=== PATIENT | female | born 1950 | race Caucasian/White ===

== ENCOUNTER 2016-08-10 18:25 | Emergency (ER) | payer MEDICARE, MEDICAID ==
[2016-08-10] MEDS ORDERED: Sodium Chloride 0.9% 1,000 ML IV ONE (19:14)
[2016-08-10 19:20] LABS: BASO % 0.2 % (0.0-2.0); EOS # 0.2 K/uL (0.0-0.7); EOS % 2.5 % (0.0-4.0); HEMATOCRIT 39.5 % (34.0-47.0); LYMPH # 2.2 K/uL (1.0-4.3); LYMPH % 32.3 % (20.0-40.0); MEAN CELL VOLUME 95.5 fL (81.0-99.0); MEAN CORPUSCULAR HEMOGLOBIN 30.2 pg (27.0-31.0); MEAN CORPUSCULAR HGB CONC 31.6 g/dL (33.0-37.0); MEAN PLATELET VOLUME 10.7 fL (7.2-11.7); MONO % 14.3 % (0.0-10.0); RED CELL DISTRIBUTION WIDTH 13.4 % (11.5-14.5)
[2016-08-10 19:29] LABS: CHLORIDE 103 mmol/L (98-107); POTASSIUM 4.7 mmol/L (3.6-5.2); SODIUM 142 mmol/L (132-148)
[2016-08-10 19:31] LABS: ALKALINE PHOSPHATASE 44 U/L (38-126); AST/SGOT 40 U/L (14-36); BILIRUBIN,TOTAL 0.7 mg/dL (0.2-1.3); CARBON DIOXIDE 26 mmol/L (22-30); GFR AFRICAN-AMERICAN > 60; TOTAL PROTEIN 7.9 g/dL (6.3-8.3)
[2016-08-10 19:32] LABS: ALT/SGPT 13 U/L (9-52); BLOOD UREA NITROGEN 18 mg/dL (7-17); CALCIUM 8.9 mg/dl (8.6-10.4); GLUCOSE,RANDOM 90 mg/dL (65-105)
--- NOTE | 2016-08-10 19:59 | C.PDOC ---
History Of Present Illness 65 y/o female, past medical history of advanced dementia, BIBA with son, c/o nasal congestion for 2 days. Denies history of seasonal allergies, no medications taken. Otherwise, denies fever, chills, nausea, vomiting, or other associated symptoms. Time Seen by Provider: 08/10/16 19:09 Chief Complaint (Nursing): Flu-like Symptoms History Per: Patient History/Exam Limitations: no limitations Onset/Duration Of Symptoms: Days Current Symptoms Are (Timing): Still Present Associated Symptoms: Nasal Congestion. denies: Fever, Chills, Cough, Vomiting, Diarrhea Ear Symptoms: Bilateral: None Recent travel outside of the [place]: No Past Medical History Reviewed: Historical Data, Nursing Documentation, Vital Signs Vital Signs: Last Vital Signs Temp 98.3 F 08/10/16 18:31 Pulse 70 08/10/16 18:31 Resp 18 08/10/16 18:31 BP 158/59 H 08/10/16 18:31 Pulse Ox 100 08/10/16 19:58 - Medical History PMH: HTN ( PER SON), Seizures ( PER SON) Family History: States: Unknown Family Hx - Social History Hx Alcohol Use: No Hx Substance Use: No - Immunization History Hx Tetanus Toxoid Vaccination: No Hx Influenza Vaccination: No Hx Pneumococcal Vaccination: No Review Of Systems Except As Marked, All Systems Reviewed And Found Negative. Constitutional: Negative for: Fever, Chills ENT: Positive for: Nose Congestion. Negative for: Ear Pain Respiratory: Negative for: Cough, Shortness of Breath, Wheezing Gastrointestinal: Negative for: Nausea, Vomiting, Abdominal Pain, Diarrhea Skin: Negative for: Rash Neurological: Negative for: Headache, Dizziness Physical Exam - Physical Exam Appears: Non-toxic, No Acute Distress Skin: Normal Color, Warm, Dry Head: Atraumatic, Normacephalic Eye(s): bilateral: Normal Inspection, PERRL, EOMI Ear(s): Bilateral: Normal Nose: Normal Oral Mucosa: Moist Throat: Normal, No Erythema, No Exudate Neck: Supple Chest: Symmetrical Cardiovascular: Rhythm Regular Respiratory: Normal Breath Sounds, No Rales, No Rhonchi, No Wheezing Gastrointestinal/Abdominal: Soft, No Tenderness, No Guarding, No Rebound Back: Normal Inspection Extremity: Normal ROM, Capillary Refill (< 2 sec. ) Neurological/Psych: Oriented x3, Normal Speech, Normal Cognition ED Course And Treatment - Laboratory Results Result Diagrams: 08/10/16 19:18 08/10/16 19:18 Lab Interpretation: Normal (trop neg) ECG: Interpreted By Me ECG Rhythm: Sinus Rhythm ECG Interpretation: Normal O2 Sat by Pulse Oximetry: 100 (RA) Pulse Ox Interpretation: Normal - Radiology CXR: Interpreted by Me CXR Interpretation: Yes: No Acute Disease Progress Note: EKG, CxR, labs, IVFs. Medical Decision Making Medical Decision Making: advanced dementia, normal w/u and exam, ? seasonal allergies x 2 days- OTC allergy meds. Disposition Doctor Will See Patient In The: Office Counseled Patient/Family Regarding: Studies Performed, Diagnosis - Disposition Disposition: HOME/ ROUTINE Disposition Time: 20:10 Condition: GOOD - Clinical Impression Clinical Impression: Allergic rhinitis - Scribe Statement The provider has reviewed the documentation as recorded by the Scribmunira Whyte All medical record entries made by the Shanaibmunira were at my direction and personally dictated by me. I have reviewed the chart and agree that the record accurately reflects my personal performance of the history, physical exam, medical decision making, and the department course for this patient. I have also personally directed, reviewed, and agree with the discharge instructions and disposition.
--- NOTE | 2016-08-10 20:08 | C.PDOC ---
Time Seen by Provider: 08/10/16 19:09 Chief Complaint (Nursing): Flu-like Symptoms Past Medical History Vital Signs: Last Vital Signs Temp 98.3 F 08/10/16 18:31 Pulse 70 08/10/16 18:31 Resp 18 08/10/16 18:31 BP 158/59 H 08/10/16 18:31 Pulse Ox 100 08/10/16 18:31 - Medical History PMH: HTN ( PER SON), Seizures ( PER SON) - Social History Hx Alcohol Use: No Hx Substance Use: No - Immunization History Hx Tetanus Toxoid Vaccination: No Hx Influenza Vaccination: No Hx Pneumococcal Vaccination: No ED Course And Treatment O2 Sat by Pulse Oximetry: 100
[2016-08-10 20:43] VITALS: O2SAT 98
[2016-08-10 21:35] VITALS: BP 160/73; PULSE 70; RESP 16; TEMP 97.6
--- NOTE | 2016-08-11 08:15 | RAD ---
PROCEDURE: CHEST RADIOGRAPH, 1 VIEW HISTORY: Shortness of breath COMPARISON: None available. FINDINGS: LUNGS: Mild diffuse increased interstitial lung markings which may represent a mild venous congestion. Trace left pleural effusion with left basilar atelectasis. Right hilar prominence. Upper lobe granulomatous changes. PLEURA: As above. CARDIOVASCULAR: Mild cardiomegaly. Tortuous aorta. OSSEOUS STRUCTURES: No significant abnormalities. VISUALIZED UPPER ABDOMEN: Normal. OTHER FINDINGS: None. IMPRESSION: Mild diffuse increased interstitial lung markings which may represent a mild venous congestion. Trace left pleural effusion with left basilar atelectasis. Right hilar prominence. Upper lobe granulomatous changes.
--- NOTE | 2016-08-11 18:11 | CARD ---
APPROVED REPORT EKG Measurement Heart [id number] <Conclusion> Normal sinus rhythm Normal ECG
== END 2016-08-10 21:35 | disposition home or self-care (01) ==
LOC: C.ER 18:25
DX: J30.9 Allergic rhinitis, unspecified (principal)
CPT/HCPCS: 71010; 80053; 83880; 84484; 85025; 93005; 96360; 99285; J7040

== ENCOUNTER 2016-12-07 19:21 | Inpatient (IN) | payer MEDICARE, OTHER ==
--- NOTE | 2016-12-07 19:51 | C.PDOC ---
History Of Present Illness 66 year old female with history of DM II and Alzheimer's disease brought to the ED by EMS for evaluation of left lower back pain and hip pain. Patient is s/p fall yesterday while at home, states she is unsure of why she fell or how long she was on the floor. She denies current chest pain, SOB, palpitations, abdominal pain, dizziness, headache, visual changes, facial droop, slurred speech. Time Seen by Provider: 12/07/16 19:23 Chief Complaint (Nursing): Back Pain History Per: Patient (alzheimer's dementia ), EMS, Family (Patient's son ) Onset/Duration Of Symptoms: Days (patient fell yesterday ) Current Symptoms Are (Timing): Still Present Quality Of Discomfort: "Pain" Severity: Mild Associated Symptoms: None Recent travel outside of the [place]: No Past Medical History Reviewed: Historical Data, Nursing Documentation, Vital Signs Vital Signs: Last Vital Signs Temp 99.3 F 12/12/16 15:00 Pulse 85 12/12/16 15:26 Resp 20 12/12/16 15:00 BP 156/60 H 12/12/16 15:26 Pulse Ox 98 12/12/16 15:26 - Medical History PMH: HTN ( PER SON), Seizures ( PER SON) Family History: States: No Known Family Hx - Social History Hx Alcohol Use: No Hx Substance Use: No - Immunization History Hx Tetanus Toxoid Vaccination: No Hx Influenza Vaccination: No Hx Pneumococcal Vaccination: No Review Of Systems Except As Marked, All Systems Reviewed And Found Negative. Constitutional: Negative for: Fever, Chills Cardiovascular: Negative for: Chest Pain, Palpitations Respiratory: Negative for: Cough, Shortness of Breath Gastrointestinal: Negative for: Nausea, Vomiting, Abdominal Pain, Diarrhea Musculoskeletal: Positive for: Leg Pain (left leg pain ), Other (left hip pain ) Neurological: Negative for: Weakness, Numbness, Change in Speech, Headache, Dizziness Physical Exam - Physical Exam Appears: Well, Non-toxic, No Acute Distress Skin: Normal Color, Warm, Dry, No Ecchymosis, Other (No abrasions ) Head: Atraumatic, Normacephalic, No Swelling, No Abrasion, No Laceration Eye(s): bilateral: Normal Inspection, PERRL, EOMI Oral Mucosa: Moist Neck: Normal, Normal ROM, No Midline Cervical Tenderness, No Paracervical Tenderness, No Step Off Deformity, Supple Cardiovascular: Rhythm Regular Respiratory: Normal Breath Sounds, No Rales, No Rhonchi, No Wheezing Gastrointestinal/Abdominal: Normal Exam, Bowel Sounds, Soft, No Tenderness Back: No CVA Tenderness, No Vertebral Tenderness, Paraspinal Tenderness ( left sided paraspinal lumbar tenderness to palpation ) Extremity: Tenderness (left hip tenderness to palpation), No Pedal Edema, No Calf Tenderness, Capillary Refill (<2sec all digits ), No Deformity (No hip/ extremity deformity ), No Swelling Extremity: Bilateral: Normal Color And Temperature Pulses: Left Dorsalis Pedis: Normal, Right Dorsalis Pedis: Normal Neurological/Psych: Oriented x3, Normal Speech, Normal Cognition, Normal Cranial Nerves, No Cerebellar Signs, Normal Motor, Normal Sensation ED Course And Treatment - Laboratory Results Result Diagrams: 12/11/16 07:07 12/11/16 07:07 ECG: Interpreted By Me, Viewed By Me (NSR 70 bpm, left axis deviation, no acue ST/T wave changes) ECG Interpretation: No Acute Changes O2 Sat by Pulse Oximetry: 98 (RA) Pulse Ox Interpretation: Normal - Other Rad B/L hips/pelvis X-Ray: Interpreted by Me, Viewed By Me (osteopenia, no obvious fx/dislocations) - CT Scan/US CT Lumbar Spine Without Intravenous Contrast Other Rad Studies (CT/US): Read By Radiologist, Radiology Report Reviewed CT/US Interpretation: Impression: 1. L3 compression fracture, acute or subacute. 2. Adnexal lesion, indeterminate. Suggest MRI or surgical evaluation Progress Note: Blood work, EKG, CXR, Xrays of right hip and LS spine ordered and reviewed. Patient given PO tyleol. Xray of LS spine difficult to interpret due to arthritic changes, but concerning for possible compression fx - CT scan LS spine ordered. - Physician Consult Information Physician Contacted: Abram Russell Outcome Of Conversation: Discussed patient with Dr. Russell, who agrees julia admission to his service for recurrent falls, vertebral compression fx, hypernatremia - unsafe discharge home. Neurosurgery consult entered. Disposition - Disposition Disposition: HOSPITALIZED Disposition Time: 23:45 Condition: STABLE - Clinical Impression Clinical Impression: Recurrent falls, Vertebral compression fracture, Hypernatremia - Scribe Statement The provider has reviewed the documentation as recorded by the Francisco Javier Saavedra Summers All medical record entries made by the Scribe were at my direction and personally dictated by me. I have reviewed the chart and agree that the record accurately reflects my personal performance of the history, physical exam, medical decision making, and the department course for this patient. I have also personally directed, reviewed, and agree with the discharge instructions and disposition. Decision To Admit - Pt Status Changed To: Hospital Disposition Of: Inpatient - Admit Certification Admit to Inpatient:: After my assessment, the patient will require hospitalization for at least two midnights. This is because of the severity of symptoms shown, intensity of services needed, and/or the medical risk in this patient being treated as an outpatient. - InPatient: Physician Admission Certification:: see notes - . Bed Request Type: Regular Admitting Physician: Abram Russell Patient Diagnosis: Recurrent falls, Vertebral compression fracture, Hypernatremia
[2016-12-07 20:42] LABS: BASO % 0.3 % (0.0-2.0); EOS % 0.4 % (0.0-4.0); HEMATOCRIT 35.6 % (34.0-47.0); LYMPH % 40.1 % (20.0-40.0); MEAN CELL VOLUME 94.9 fL (81.0-99.0); MEAN CORPUSCULAR HGB CONC 32.6 g/dL (33.0-37.0); MEAN PLATELET VOLUME 10.3 fL (7.2-11.7); MONO # 0.5 K/uL (0.0-0.8); MONO % 10.7 % (0.0-10.0); RED CELL DISTRIBUTION WIDTH 13.2 % (11.5-14.5); WHITE BLOOD COUNT 5.1 K/uL (4.8-10.8)
[2016-12-07 20:47] LABS: CHLORIDE 105 mmol/L (98-107)
[2016-12-07 20:48] LABS: SODIUM 154 mmol/L (132-148)
[2016-12-07 20:50] LABS: ALKALINE PHOSPHATASE 43 U/L (38-126); AST/SGOT 23 U/L (14-36); BILIRUBIN,TOTAL 0.5 mg/dL (0.2-1.3); CARBON DIOXIDE 25 mmol/L (22-30); GFR AFRICAN-AMERICAN > 60; TOTAL PROTEIN 6.4 g/dL (6.3-8.3)
[2016-12-07 20:51] LABS: ALT/SGPT 26 U/L (9-52); BLOOD UREA NITROGEN 16 mg/dL (7-17); CALCIUM 8.5 mg/dl (8.6-10.4); GLUCOSE,RANDOM 88 mg/dL (65-105)
[2016-12-07 21:30] LABS: RBC URINE 2 /hpf (0-3); URINE BACTERIA RARE (<OCC); URINE BILIRUBIN NEGATIVE (NEGATIVE); URINE BLOOD NEGATIVE (NEGATIVE); URINE COLOR Yellow (YELLOW); URINE GLUCOSE (UA) NORMAL (Normal); URINE KETONE NEGATIVE (NEGATIVE); URINE PROTEIN NEGATIVE (NEGATIVE); WBC URINE 4 /hpf (0-5)
[2016-12-07 21:33] LABS: URINE LEUKOCYTE ESTERASE NEGATIVE Leu/uL (Negative)
--- NOTE | 2016-12-07 22:53 | CT ---
EXAM: CT Lumbar Spine Without Intravenous Contrast CLINICAL HISTORY: 66 years old, female; Pain; Low back pain; Additional info: Low back pain S/P fall, R/O FX TECHNIQUE: Axial computed tomography images of the lumbar spine without intravenous contrast. All CT scans at this facility use one or more dose reduction techniques, viz.: automated exposure control; ma/kV adjustment per patient size (including targeted exams where dose is matched to indication; i.e. head); or iterative reconstruction technique. Coronal and sagittal reformatted images were created and reviewed. COMPARISON: No relevant prior studies available. FINDINGS: Vertebrae: Mild compression deformity inferior endplate L3 vertebral body, likely acute or subacute. Moderate to severe chronic compression deformity L2 vertebral body. Moderate chronic compression deformity L1 vertebral body. Mild chronic compression deformity T11 vertebral body. Mild to moderate chronic biconcave deformities T12, L4, L5 vertebral bodies. Discs/spinal canal/neural foramina: Mild degenerative changes of spine. Mild central canal stenosis at L2, L4 levels. Soft tissues: Unremarkable. Reproductive: 7.9 x 7.1 cm hypodense lesion within RIGHT adnexal region. Vasculature: Atherosclerotic disease of visualized arteries. IMPRESSION: 1. L3 compression fracture, acute or subacute. 2. Adnexal lesion, indeterminate. Suggest MRI or surgical evaluation. 3. Incidental/non-acute findings are described above.
[2016-12-07] MEDS ORDERED: Sodium Chloride 0.9% 500 ML IV ONE (23:47)
[2016-12-08] MEDS ORDERED: Sodium Chloride 0.9% 1,000 ML ONE (05:45)
[2016-12-08 05:46] LABS: THYROID STIMULATING HORMONE 2.67 mIU/L (0.46-4.68)
[2016-12-08] MEDS ORDERED: Nitroglycerin 2% Ointment Foilpak UD TOP STA (06:37)
[2016-12-08] MEDS ORDERED: Metoprolol Succinate 25 mg XL Tab PO ONE (06:39)
[2016-12-08] MEDS ORDERED: Nitroglycerin 2% Ointment Foilpak UD TOP ONE (06:45)
[2016-12-08] MEDS: (Novolin R) Insulin Human Regular 100 units/ml vial SC SCH ×4 (07:36→22:18)
[2016-12-08 08:00] LABS: CHLORIDE 104 mmol/L (98-107); POTASSIUM 3.3 mmol/L (3.6-5.2); SODIUM 140 mmol/L (132-148)
[2016-12-08 08:03] LABS: BLOOD UREA NITROGEN 12 mg/dL (7-17); CARBON DIOXIDE 25 mmol/L (22-30); GFR AFRICAN-AMERICAN > 60; GLUCOSE,RANDOM 62 mg/dL (65-105)
--- NOTE | 2016-12-08 09:47 | RAD ---
HISTORY: s/p fall, upper back pain COMPARISON: 08/10/2016 TECHNIQUE: Chest PA and lateral FINDINGS: LUNGS: No active pulmonary disease. PLEURA: No significant pleural effusion identified. No pneumothorax apparent. CARDIOVASCULAR: Normal. OSSEOUS STRUCTURES: No significant abnormalities. VISUALIZED UPPER ABDOMEN: Normal. OTHER FINDINGS: None. IMPRESSION: No active disease.
[2016-12-08] MEDS ORDERED: Metoprolol Succinate 25 mg XL Tab PO SCH (10:00)
[2016-12-08] MEDS: Enoxaparin 40 mg Syringe SC SCH (10:10)
--- NOTE | 2016-12-08 11:27 | RAD ---
Indication: Status post fall, hip pain Bilateral hips with pelvis Comparison: None available Findings: Diffuse osseous demineralization limits evaluation for acute fracture lines. No acute displaced fracture or dislocation identified. Degenerative changes bilaterally including joint space narrowing. Soft tissues appear unremarkable. No evidence of radiopaque foreign body. Impression: Diffuse osseous demineralization. No acute displaced fracture or dislocation evident. If high clinical index of suspicion, suggest cross-sectional imaging for further evaluation. Otherwise, if symptoms persist or if there is continued clinical concern, x-ray follow-up in 7-10 days should be considered.
--- NOTE | 2016-12-08 11:33 | RAD ---
PROCEDURE: Radiographs of the Lumbar Spine. HISTORY: LEFT LOW BACK PAIN, S/P FALL COMPARISON: Lumbar spine CT performed subsequently on 12/07/16 FINDINGS: Diffuse osseous demineralization markedly limits evaluation for acute fractures. Severe compression fracture deformity of L2. Mild compression fracture deformity of L3. Mild to moderate chronic biconcave deformities of additional vertebral bodies including T12, L4, and L5. Facet hypertrophy. Dense atherosclerotic calcifications of the aorta. Right upper quadrant surgical clips. IMPRESSION: Diffuse osseous demineralization. Severe compression fracture deformity of L2. Mild compression fracture deformity of L3. Mild to moderate chronic biconcave deformities of additional vertebral bodies including T12, L4, and L5. Please refer to lumbar spine CT performed subsequently for more detailed discussion of findings.
--- NOTE | 2016-12-08 16:58 | CP.PCM.CON ---
History of Present Illness - History of Present Illness History of Present Illness: SPINE CONSULT Pt seen and examined with her son present to answer questions and translate. Pt with multiple compression fractures. Will get MRI to try and date these and then rec treatment accordingly. Thanks. Past Patient History - Past Social History Smoking Status: Never Smoked - CARDIAC Hx Hypertension: Yes ( PER SON) - NEUROLOGICAL Hx Seizures: Yes ( PER SON) - ENDOCRINE/METABOLIC Hx Diabetes Mellitus Type 1: Yes Hx Diabetes Mellitus Type 2: Yes ( PER SON) - PSYCHIATRIC Hx Substance Use: No - SURGICAL HISTORY Hx Surgeries: Yes Hx Tubal Ligation: Yes - ANESTHESIA Hx Anesthesia: No Meds Allergies/Adverse Reactions: Allergies Allergy/AdvReac Type Severity Reaction Status Date / Time No Known Allergies Allergy Verified 08/10/16 18:33 - Medications Medications: Current Medications Acetaminophen (Tylenol 325mg Tab) 650 mg PO Q6 PRN PRN Reason: pain Last Admin: 12/08/16 11:38 Dose: 650 mg Acetaminophen (Tylenol 325mg Tab) 650 mg PO Q4 PRN PRN Reason: Pain, moderate (4-7) Last Admin: 12/08/16 06:30 Dose: 650 mg Enoxaparin Sodium (Lovenox) 40 mg SC DAILY [facility] Last Admin: 12/08/16 10:10 Dose: 40 mg Insulin Human Regular (Novolin R) 0 unit SC ACHS PING PRN Reason: Protocol Last Admin: 12/08/16 12:51 Dose: Not Given Metoprolol Succinate (Toprol Xl) 25 mg PO DAILY [facility] Last Admin: 12/08/16 10:05 Dose: 25 mg Risperidone (Risperdal Tab) 0.25 mg PO HS PING Rosuvastatin Calcium (Crestor) 5 mg PO HS [facility] Results - Vital Signs Recent Vital Signs: Last Vital Signs Temp 98.0 F 12/08/16 07:46 Pulse 80 12/08/16 16:35 Resp 16 12/08/16 16:35 BP 178/86 H 12/08/16 16:35 Pulse Ox 99 12/08/16 16:35 - Labs Result Diagrams: 12/07/16 20:31 12/08/16 07:42 Labs: Laboratory Results - last 24 hr 12/08/16 12/08/16 12/08/16 04:29 07:16 07:42 Sodium 140 Potassium 3.3 L Chloride 104 Carbon Dioxide 25 Anion Gap 14 BUN 12 Creatinine 0.8 Est GFR ( Amer) > 60 Est GFR (Non-Af Amer) > 60 POC Glucose (mg/dL) 60 L Random Glucose 62 L Calcium 8.0 L Total Creatine Kinase 93 Vitamin B12 462 TSH 3rd Generation 2.67 12/08/16 12/08/16 12/08/16 08:33 12:46 13:55 Sodium Potassium Chloride Carbon Dioxide Anion Gap BUN Creatinine Est GFR ( Amer) Est GFR (Non-Af Amer) POC Glucose (mg/dL) 149 H 112 H 114 H Random Glucose Calcium Total Creatine Kinase Vitamin B12 TSH 3rd Generation
--- NOTE | 2016-12-08 19:56 | CON ---
DATE: 12/08/2016 CHIEF COMPLAINT: Frequent falls. HISTORY OF PRESENT ILLNESS: This is a 66-year-old woman with history of type 2 diabetes with evidence of diabetic neuropathy on neuro exam, dementia Alzheimer's type who presents by translation with left lower back pain and hip pain. Apparently, the patient had fallen on the floor while at home. She has a history of recent falls. No history of any seizure like activity recently or any head injury or any loss of consciousness. Apparently, she has questionable history of seizures in the past, though it is very vague and whether it is true seizures or not. She came in with an elevated sodium of 154 and was mildly dehydrated. Apparently, her sodium has corrected. Neurosurgery has seen the patient and we will give further recommendations after the MRI. Her blood glucose today was 62, which is low. She is alert and oriented to person and place, not much to month, and year. Recall after 5 minutes 0 out of 3. Poor attention span. She has chronic low back pain, which occasionally radiates down both legs. She follows simple commands. PAST MEDICAL HISTORY: History of questionable hypertension and dementia and type 2 diabetes. REVIEW OF SYSTEMS: A 14-point review of system is negative except as in the HPI. FAMILY HISTORY: Noncontributory. ALLERGIES: NO KNOWN DRUG ALLERGIES. SOCIAL HISTORY: No illicit drug use, smoking, or EtOH abuse. PHYSICAL EXAMINATION: GENERAL: The patient is following simple commands. No acute distress. VITAL SIGNS: Temperature afebrile, pulse rate 74, blood pressure 152/71, respiratory rate of 14, oxygen saturation of 100% on room air. HEENT: Atraumatic, normocephalic. PERRLA. Extraocular muscles are intact. NECK: Supple. No JVD. No adenopathy noted. LUNGS: Clear to auscultation. No adventitious sounds. HEART: S1 and S2. Normal rate and rhythm. No murmur, rubs, or gallops. ABDOMEN: Soft, nontender, nondistended. Bowel sounds are present. MUSCULOSKELETAL: Has paraspinal tenderness and left hip tenderness. EXTREMITIES: No clubbing. No cyanosis. Peripheral pulses are 2+ bilaterally. NEUROLOGIC: The patient is alert and oriented to person, place, not much month or year. Recall after 5 minutes 0 out of 3. Poor attention. Slow thought process. Cranial nerves II through XII are intact. Motor exam; slight increased tone throughout. Moves all extremities equally. No pronator drift seen. Sensory exam: Decreased light touch, pinprick, up to the calves. Decreased vibration of the toes. DTRs are 1+ throughout in one of the knees and ankles. Co-ordination of [id number] intact. Gait is deferred for now. LABORATORY DATA: Sodium is 140, potassium 3.3, chloride of 104, carbon dioxide of 25, BUN of 12, creatinine 0.8, random glucose 62. ASSESSMENT: This is a 66-year-old woman with history of arthritis, history of type 2 diabetes mellitus, hypertension, questionable seizure disorder with history of frequent falls, has been fell on her left side of her back with a lumbar spine without contrast showing L3 compression fracture questionable whether it is subacute or not and has some adnexal lesions for which MRI of the pelvis should be beneficial. Currently, she has evidence on neuro exam of diabetic peripheral neuropathy on decondition state. She also has an evidence of underlying cognitive impairment. No seizure like activity. At this time, her frequent falls is likely secondary to most likely diabetic peripheral neuropathy, she reports underlying decondition state. She is hypoglycemic today, which can also give her generalized weakness. PLAN: 1. At this time, I recommend an MRI of the lumbosacral spine to assess the evolution of her L3 compression fracture. 2. Neurosurgical evaluation. 3. Recommend gabapentin 300 mg p.o. bedtime for neuropathic pain relief. 4. Physical and occupational therapy and possible subacute rehab or acute rehab. 5. Recommend to taper her off the Risperdal she has bedtime given neuroleptics will not be good in her age given her history of dementia as well. 6. Keep her blood sugars between 140 to 180 and avoid hypoglycemic episodes and continue with current present medical management. Som Cardenas MD
--- NOTE | 2016-12-09 03:54 | CON ---
DATE: 12/08/2016 REASON FOR CONSULTATION: Low back pain. HISTORY OF PRESENT ILLNESS: The patient is a 66-year-old young lady who presented to the emergency room yesterday with the complaint of lower back pain. The patient sustained a fall on the floor while at home. Patient denies any falls, but she has a history of Alzheimer's. The son just got to the emergency room, so I was able to have him translate and answer questions. He states that she is confused a lot. She lives at home with him and usually uses a cane to walk, but when the pain got severe and her complaints got more severe yesterday, and he brought her to the emergency room. PAST MEDICAL HISTORY: According to the son is significant for hypertension and seizure disorder. The son states the patient has had no recent surgery and does not have any metallic implants. ALLERGIES: NO KNOWN ALLERGIES TO MEDICATIONS. PHYSICAL EXAMINATION: The patient point to the lower lumber region, the area of tenderness. She is able to move both extremities actively. Sensory appears to be intact to light touch. She has good motor strength. No clonus or Babinski is present. DIAGNOSTIC DATA: X-rays and the CAT scan were done on this admission. Head shows significant severe compression of L2 with vertebra plana deformity. There appeared to be compressions of other bones in lower thoracic and lumbar region at a varying degrees. She has plane x-ray done in November of last year, which shows similar deformities. Again, the patient's history is not that reliable, but it is difficult to say how much here was new or old. Therefor, I will requesting MRI of the lumbar spine to help date these fractures. If something is new then we can order the appropriate brace and mobilizer as tolerated. If everything is old then it is just be matter of getting therapy and mobilizer again is her pain allows and proceed from there. We will followup after the testing has been done. Thank you for allowing me to participate in the care of your patient. Rodolfo Bearden MD
--- NOTE | 2016-12-09 05:08 | HP ---
CHIEF COMPLAINT: Fall, low back pain, and hip pain. HISTORY OF PRESENT ILLNESS: This is a 66-year-old female with history of type 2 diabetes and Alzheimer's. She was brought in to emergency room by EMS because of a fall, which happened on the floor at her home and the patient is forgetful. She does not remember events and according to the patient's ER sheet, the patient complained of low back pain on the left side and hip pain. The patient at that time denied any chest pain, shortness of breath, palpitations, and the patient had dizziness, but she did not have any head injury. No history of seizure-like activity or loss of consciousness. The patient denies any cough, sore throat, or runny nose. The patient denies any polyuria, polydipsia, or polyphagia. She denies any hematuria, pyuria, dizziness, history of sneezing, itchy eyes, itchy nose. There is no history of trauma or loss of consciousness. There is no cough or sore throat. There is no history of sneezing. There is no history of skin rash. ALLERGIES: UNKNOWN ALLERGIES. PAST MEDICAL HISTORY: Hypertension and seizure disorder. SOCIAL HISTORY: She is a nonsmoker and non-EtOH user. CURRENT MEDICATIONS: At home, she is on Risperdal, metoprolol, glipizide, and Lipitor. PHYSICAL EXAMINATION: GENERAL: An elderly female who is calm and confused. VITAL SIGNS: Blood pressure is 180/85, pulse 83, respiratory rate 13, and temperature 98.2. SKIN: Senile turgor. No bruises. No purpura, pale. HEENT: Atraumatic and normocephalic. Negative pallor. Negative jaundice. Extraocular movements are intact. NECK: Supple. No JVD. No lymph node. No thyromegaly. No carotid bruits. CHEST: Chest wall bilaterally symmetrical with tangent breast. No masses. No discharge. LUNGS: Bilaterally clear. No rales or rhonchi. CARDIOVASCULAR: S1 and S2 regular. No heaves noted. ABDOMEN: Soft and nontender. Bowel sounds positive. RECTAL: No bleeding. No masses. EXTREMITIES: No clubbing, cyanosis, or edema. CENTRAL NERVOUS SYSTEM: The patient is awake and alert. The patient is forgetful. ASSESSMENT: 1. Fall with low back pain. 2. Alzheimer. 3. Diabetes. 4. Dehydration. PLAN: Admit, detailed order written, and seen and examined. Abram Russell MD
[2016-12-09] MEDS: (Novolin R) Insulin Human Regular 100 units/ml vial SC SCH ×4 (08:41→22:00)
[2016-12-09] MEDS: Enoxaparin 40 mg Syringe SC SCH (09:08)
[2016-12-09] MEDS: Metoprolol Succinate 50 mg XL Tab PO SCH (09:11)
[2016-12-09] MEDS: Piperacill/Tazo 3.375gm in Dex 3.375 GM/50 ML BAG IVPB SCH ×2 (13:32→21:58)
--- NOTE | 2016-12-09 14:41 | MRI ---
PROCEDURE: MR LUMBAR SPINE WITHOUT CONTRAST HISTORY: compression fracture COMPARISON: Lumbar spine CT without contrast 12/07/2016. TECHNIQUE: Multiecho multiplanar sequences were performed through the lumbar spine without the use of intravenous contrast. FINDINGS: The upper lumbar curvature is reversed by a severe chronic compression fracture of L2 and a moderate chronic compression fracture L1 with both anteriorly wedged. No fragmentation is appreciated. A mild chronic compression fracture of T11 is also seen anteriorly wedged. A large Schmorl's node has developed at the inferior L3 endplate as well as at the superior endplate of the L5. Endplate degenerate change identified anteriorly at L3-4 and L4-5. No suspicious marrow signal changes are appreciated. By concave deformity is appreciated L5 on a chronic basis. Prevertebral paraspinal soft tissues appear unremarkable. The conus medullaris terminates at the L1 vertebral body level, normal in intrinsic and intrinsic signal. Mild posterior deflection of the superior endplates of L1 and L2 encroaches the anterior margins of the distal conus. T12-L1: No disc herniation, spinal canal stenosis or neural foraminal narrowing. L1-2: No disc herniation, spinal canal stenosis or neural foraminal narrowing. L2-3: No disc herniation or spinal canal stenosis. A mild degenerative left neural foraminal stenosis appreciated with none at the right. [id number]-[id number] facet joint arthropathy is appreciated. L3-4: A disc osteophyte complex is appreciate combined with prominent facet joint arthropathy to cause [id number] central canal stenosis and mild bilateral neural foraminal stenosis. No disc herniation identified. L4-5: Initial large disc osteophyte complex identified combined with moderate to severe facet arthropathy to cause a moderate to severe central canal stenosis without definite disc herniation appreciated. Mild left and borderline right neural foraminal stenoses are identified. L5-S1: Gross facet arthropathy is identified with limited disc bulging encroaching the lateral recesses mildly without prominent central canal stenosis. Borderline bilateral neural foraminal stenoses are identified. OTHER FINDINGS: Incidental note is made of a distended urinary bladder. IMPRESSION: 1. Multiple chronic compression fractures are identified involving L2 severely and L1 moderately in incidentally T11 mildly. No spondylolisthesis or definite acute fracture identified. 2. Multilevel disc osteophyte complexes and facet joint arthropathy are identified at the mid to inferior lumbar spine, seen worst at L4-5 where moderate to severe central canal stenosis results. 3. Multilevel limited bilateral neural foraminal degenerate stenoses. 4. No definitive disc herniation appreciable.
--- NOTE | 2016-12-09 18:07 | PN ---
NEUROLOGY FOLLOWUP DATE: 12/09/2016 CHIEF COMPLAINT: Frequent falls. SUBJECTIVE: The patient is seen and examined at bedside. No acute events overnight. She has a baseline dementia, otherwise is pretty calm today. She had a transient low glucose last night of 45. She underwent an MRI of the lumbosacral spine which showed multiple chronic compression fractures identified involving L2 severely and L1 moderately and incidentally on T11 mildly. No spondylolisthesis or acute fracture identified. There is multilevel disk osteophyte complex and facet joint arthropathy identified in the lumbar spine, seen worst at L4-L5 and nshrtpoo-vg-[id number] central canal stenosis and bilateral multilevel neural foraminal stenosis. Neurosurgery evaluated and appreciated and agreed with. PAST MEDICAL HISTORY: History of hypertension and dementia. REVIEW OF SYSTEMS: A 14-point review of system is negative except as in HPI. FAMILY HISTORY: Noncontributory. SOCIAL HISTORY: No illicit drug use, smoking, or EtOH abuse. ALLERGIES: NO KNOWN DRUG ALLERGIES. MEDICATIONS: Reviewed by nurse reconciliation sheet. PHYSICAL EXAMINATION: GENERAL: The patient is lying in bed. No acute distress. VITAL SIGNS: Temperature 98, pulse rate 76, blood pressure 140/78, respiratory rate of 18. HEENT: Atraumatic, normocephalic. PERRLA. Extraocular muscles are intact. NECK: Supple. No JVD. No adenopathy noted. LUNGS: Clear to auscultation. No adventitious sounds. HEART: S1 and S2. Normal rate and rhythm. No murmurs, rubs, or gallops. ABDOMEN: Soft, nontender, nondistended. Bowel sounds are present. EXTREMITIES: No clubbing. No cyanosis. Peripheral pulses are 2+ bilaterally. NEUROLOGIC: The patient is alert and oriented to person, not much to month or year. Recall after 5 minutes 0 out of 3. Poor attention. Tangential thought process. Judgment is not fully intact. Cranial nerves II through XII are intact. Motor exam: Slight increased tone throughout. Moves all extremities equally. No pronator drift seen. Sensory exam: Decreased light touch, pinprick, up to the calves. Decreased vibration of the toes. DTRs are 1+ throughout. Coordination: Yybwub-la-qbnf intact. Gait is deferred for now. LABORATORY DATA: Today's blood glucose 131. ASSESSMENT: This is a 66-year-old woman with history of arthritis, history of type 2 diabetes mellitus, hypertension, questionable seizure disorder with history of frequent falls, has had a fall on her left side of her back with a CAT scan of the lumbar spine showing L3 compression fracture which then underwent an MRI of the lumbosacral spine which showed multilevel chronic compression fractures identified involving L2 severely and L1 moderately and incidentally T11 mildly. No evidence of spondylolisthesis or acute fracture, multilevel disk osteophyte complexes, facet joint arthropathy identified at L4-L5, vzzngeui-fe-qpelte central canal stenosis and multilevel bilateral neural foraminal stenosis. She also has evidence of diabetic peripheral neuropathy, on examination deconditioned. Her dementia is more of an Alzheimer's type picture. At this time, her frequent falls are likely secondary to chronic lumbosacral severe central canal stenosis, superimposed underlying diabetic peripheral neuropathy, superimposed underlying deconditioned state. RECOMMENDATIONS: At this time, 1. Follow with neurosurgical evaluation of her MRI findings with regards to her chronic compression fractures. 2. Recommend gabapentin 300 mg p.o. at bedtime for neuropathic pain relief. 3. Physical and occupational therapy for lumbosacral exercises, gait and balance exercises and muscle strengthening and possibly will require subacute rehab. 4. Recommend tapering off her Risperdal at bedtime given that neuroleptics can lower the seizure threshold and given that she has history of dementia will not work so well. If she gets agitated, could consider low dose Seroquel 12.5 mg p.o. at bedtime. 5. Continue to keep her blood sugars between 140 and 180 and avoid hypoglycemic episodes and continue with current present medical management. Thanks for this followup. She is neurologically stable. Som Cardenas MD
--- NOTE | 2016-12-09 18:31 | CARD ---
APPROVED REPORT EKG Measurement Heart [id number] [id number] <Conclusion> Normal sinus rhythm Nonspecific ST abnormality Abnormal ECG
[2016-12-10] MEDS: Piperacill/Tazo 3.375gm in Dex 3.375 GM/50 ML BAG IVPB SCH ×3 (05:17→21:38)
[2016-12-10] MEDS: (Novolin R) Insulin Human Regular 100 units/ml vial SC SCH ×4 (08:00→21:41)
[2016-12-10] MEDS ORDERED: Pneumococcal 23-Valent Vaccine IM ONE ×2 (10:00→12:30)
[2016-12-10] MEDS: Enoxaparin 40 mg Syringe SC SCH ×2 (10:00→12:39)
--- NOTE | 2016-12-10 12:02 | CP.PCM.PN ---
Subjective - Date & Time of Evaluation Date of Evaluation: 12/10/16 Time of Evaluation: 12:01 - Subjective Subjective: SPINE MRI reviewed. No new fxs noted. Pt w signif stenosis at L3-4, L4-5. Would rec trial of LESI. Explained to son and he agrees. Will tent plan for tomorrow. Objective - Vital Signs/Intake and Output Vital Signs (last 24 hours): Temp Pulse Resp BP Pulse Ox 96.5 F L 65 20 117/68 100 12/10/16 07:22 12/10/16 07:22 12/10/16 07:22 12/10/16 07:22 12/10/16 07:22 Intake and Output: 12/10/16 12/10/16 06:59 18:59 Intake Total 540 Output Total 0 Balance 540 - Medications Medications: Current Medications Acetaminophen (Tylenol 325mg Tab) 650 mg PO Q4 PRN PRN Reason: Pain, moderate (4-7) Last Admin: 12/08/16 06:30 Dose: 650 mg Enoxaparin Sodium (Lovenox) 40 mg SC DAILY [facility] Last Admin: 12/10/16 10:00 Dose: Not Given Piperacillin Sod/Tazobactam Sod (Zosyn 3.375 Gm Iv Premix) 3.375 gm in 50 mls @ 100 mls/hr IVPB Q8H [facility] Last Admin: 12/10/16 05:17 Dose: 100 mls/hr Insulin Human Regular (Novolin R) 0 unit SC ACHS [facility] PRN Reason: Protocol Last Admin: 12/10/16 08:00 Dose: Not Given Metoprolol Succinate (Toprol Xl) 50 mg PO DAILY [facility] Last Admin: 12/09/16 09:11 Dose: 50 mg Risperidone (Risperdal Tab) 0.25 mg PO HS [facility] Last Admin: 12/09/16 21:58 Dose: 0.25 mg Rosuvastatin Calcium (Crestor) 5 mg PO HS [facility] Last Admin: 12/09/16 21:58 Dose: 5 mg - Labs Labs: 12/08/16 07:42
[2016-12-10] MEDS: Metoprolol Succinate 50 mg XL Tab PO SCH (12:39)
--- NOTE | 2016-12-10 22:53 | CP.PCM.PN ---
Subjective - Date & Time of Evaluation Date of Evaluation: 12/09/16 - Subjective Subjective: FEELS WEAK, NON AMBULATORY, NO FEVER Objective - Vital Signs/Intake and Output Vital Signs (last 24 hours): Temp Pulse Resp BP Pulse Ox 98.2 F 72 18 128/73 100 12/10/16 16:00 12/10/16 16:00 12/10/16 16:00 12/10/16 16:00 12/10/16 16:00 Intake and Output: 12/10/16 12/11/16 18:59 06:59 Intake Total 250 400 Balance 250 400 - Medications Medications: Current Medications Acetaminophen (Tylenol 325mg Tab) 650 mg PO Q4 PRN PRN Reason: Pain, moderate (4-7) Last Admin: 12/08/16 06:30 Dose: 650 mg Enoxaparin Sodium (Lovenox) 40 mg SC DAILY [facility] Last Admin: 12/10/16 12:39 Dose: 40 mg Piperacillin Sod/Tazobactam Sod (Zosyn 3.375 Gm Iv Premix) 3.375 gm in 50 mls @ 100 mls/hr IVPB Q8H [facility] Last Admin: 12/10/16 21:38 Dose: 100 mls/hr Imipenem/Cilastatin Sodium 500 (mg/ Sodium Chloride) 100 mls @ 100 mls/hr IVPB Q8H [facility] Last Admin: 12/10/16 18:39 Dose: 100 mls/hr Insulin Human Regular (Novolin R) 0 unit SC ACHS [facility] PRN Reason: Protocol Last Admin: 12/10/16 21:41 Dose: Not Given Metoprolol Succinate (Toprol Xl) 50 mg PO DAILY [facility] Last Admin: 12/10/16 12:39 Dose: 50 mg Risperidone (Risperdal Tab) 0.25 mg PO [facility] Last Admin: 12/10/16 21:38 Dose: 0.25 mg Rosuvastatin Calcium (Crestor) 5 mg PO [facility] Last Admin: 12/10/16 21:38 Dose: 5 mg - Labs Labs: 12/08/16 07:42 - Constitutional Appears: Non-toxic, No Acute Distress, Chronically Ill - Head Exam Head Exam: ATRAUMATIC, NORMAL INSPECTION, NORMOCEPHALIC - Eye Exam Eye Exam: EOMI, Normal appearance Pupil Exam: NORMAL ACCOMODATION - ENT Exam ENT Exam: Mucous Membranes Moist, Normal Exam, Normal Oropharynx - Neck Exam Neck Exam: Normal Inspection - Respiratory Exam Respiratory Exam: Clear to Ausculation Bilateral, NORMAL BREATHING PATTERN - Cardiovascular Exam Cardiovascular Exam: REGULAR RHYTHM, +S1, +S2 - GI/Abdominal Exam GI & Abdominal Exam: Soft, Normal Bowel Sounds - Rectal Exam Rectal Exam: NORMAL INSPECTION - Extremities Exam Extremities Exam: Full ROM, Normal Capillary Refill, Normal Inspection - Neurological Exam Neurological Exam: Abnormal Gait, Altered, Awake, CN II-XII Intact - Psychiatric Exam Psychiatric exam: Anxious, Flat Affect - Skin Skin Exam: Intact Assessment and Plan (1) Fall Status: Acute (2) Hypertension Status: Chronic (3) Dementia Status: Chronic
--- NOTE | 2016-12-10 22:54 | CP.PCM.PN ---
Subjective - Date & Time of Evaluation Date of Evaluation: 12/10/16 - Subjective Subjective: ON BED, BEDSIDE PT, NO FEVER, NO SOB, NO COUGH, NO FEVER, NO SOB Objective - Vital Signs/Intake and Output Vital Signs (last 24 hours): Temp Pulse Resp BP Pulse Ox 98.2 F 72 18 128/73 100 12/10/16 16:00 12/10/16 16:00 12/10/16 16:00 12/10/16 16:00 12/10/16 16:00 Intake and Output: 12/10/16 12/11/16 18:59 06:59 Intake Total 250 400 Balance 250 400 - Medications Medications: Current Medications Acetaminophen (Tylenol 325mg Tab) 650 mg PO Q4 PRN PRN Reason: Pain, moderate (4-7) Last Admin: 12/08/16 06:30 Dose: 650 mg Enoxaparin Sodium (Lovenox) 40 mg SC DAILY [facility] Last Admin: 12/10/16 12:39 Dose: 40 mg Piperacillin Sod/Tazobactam Sod (Zosyn 3.375 Gm Iv Premix) 3.375 gm in 50 mls @ 100 mls/hr IVPB Q8H [facility] Last Admin: 12/10/16 21:38 Dose: 100 mls/hr Imipenem/Cilastatin Sodium 500 (mg/ Sodium Chloride) 100 mls @ 100 mls/hr IVPB Q8H [facility] Last Admin: 12/10/16 18:39 Dose: 100 mls/hr Insulin Human Regular (Novolin R) 0 unit SC ACHS [facility] PRN Reason: Protocol Last Admin: 12/10/16 21:41 Dose: Not Given Metoprolol Succinate (Toprol Xl) 50 mg PO DAILY [facility] Last Admin: 12/10/16 12:39 Dose: 50 mg Risperidone (Risperdal Tab) 0.25 mg PO [facility] Last Admin: 12/10/16 21:38 Dose: 0.25 mg Rosuvastatin Calcium (Crestor) 5 mg PO [facility] Last Admin: 12/10/16 21:38 Dose: 5 mg - Labs Labs: 12/08/16 07:42 - Constitutional Appears: Non-toxic, No Acute Distress - Head Exam Head Exam: ATRAUMATIC, NORMAL INSPECTION, NORMOCEPHALIC - Eye Exam Eye Exam: EOMI, Normal appearance, PERRL Pupil Exam: NORMAL ACCOMODATION - ENT Exam ENT Exam: Mucous Membranes Moist, Normal Exam, Normal Oropharynx - Neck Exam Neck Exam: Normal Inspection - Respiratory Exam Respiratory Exam: Clear to Ausculation Bilateral, NORMAL BREATHING PATTERN - Cardiovascular Exam Cardiovascular Exam: REGULAR RHYTHM, +S1, +S2 - GI/Abdominal Exam GI & Abdominal Exam: Soft, Normal Bowel Sounds - Extremities Exam Extremities Exam: Normal Capillary Refill - Neurological Exam Neurological Exam: Abnormal Gait, Awake, CN II-XII Intact Assessment and Plan (1) Fall Status: Acute (2) Hypertension Status: Chronic (3) Dementia Status: Chronic
[2016-12-11] MEDS: Piperacill/Tazo 3.375gm in Dex 3.375 GM/50 ML BAG IVPB SCH ×3 (05:22→22:03)
[2016-12-11] MEDS: (Novolin R) Insulin Human Regular 100 units/ml vial SC SCH ×4 (07:30→22:03)
[2016-12-11 07:40] LABS: BASO % 0.3 % (0.0-2.0); EOS # 0.1 K/uL (0.0-0.7); EOS % 0.8 % (0.0-4.0); HEMATOCRIT 33.7 % (34.0-47.0); LYMPH # 1.7 K/uL (1.0-4.3); LYMPH % 28.2 % (20.0-40.0); MEAN CELL VOLUME 95.3 fL (81.0-99.0); MEAN CORPUSCULAR HGB CONC 32.6 g/dL (33.0-37.0); MEAN PLATELET VOLUME 10.6 fL (7.2-11.7); MONO # 0.7 K/uL (0.0-0.8); MONO % 12.1 % (0.0-10.0); NRBC % 0.1 % (0.0-2.0); RED CELL DISTRIBUTION WIDTH 13.2 % (11.5-14.5); WHITE BLOOD COUNT 6.1 K/uL (4.8-10.8)
[2016-12-11 07:51] LABS: POTASSIUM 3.7 mmol/L (3.6-5.2)
[2016-12-11 07:54] LABS: CALCIUM 8.8 mg/dl (8.6-10.4)
[2016-12-11] MEDS: Metoprolol Succinate 50 mg XL Tab PO SCH (10:00)
[2016-12-11] MEDS: Iohexol 240 (50 ml) ONE ×2 (12:54→13:42)
[2016-12-11] MEDS: MethylPREDNISolone Depo 40 mg/ml Inj ONE ×2 (12:55→13:43)
[2016-12-11] MEDS: Bacitracin 500 Units/gm Oint Foilpak UD ONE ×3 (12:55→13:43)
[2016-12-11] MEDS ORDERED: Lactated Ringer's 1,000 ML IV ONE ×2 (12:55)
[2016-12-11] MEDS ORDERED: Propofol 10 mg/ml Inj (20 ML) ONE (13:26)
[2016-12-11] MEDS ORDERED: Midazolam 2 MG/2 ML VIAL ONE (13:27)
[2016-12-11] MEDS ORDERED: Sodium Chloride 0.9% 20 ML IV ONE (13:35)
--- NOTE | 2016-12-11 14:03 | PCM.OP ---
Operative Report - Operative Report Date of Surgery/Procedure: 12/11/16 Time of Surgery/Procedure: 13:30 Surgeon: Suleiman Anesthesia/Sedation: IV Pre-Operative Diagnosis: Spinal stenosis Post-Operative Diagnosis: same Indication for Surgery: pain Operative Findings: Needle in epidural space Procedure/Operation Description: L L5-S1 LESI Estimated Blood Loss: 0 Complications: None Discharge & Condition: Stable
[2016-12-11 15:54] VITALS: RESP 20
--- NOTE | 2016-12-11 16:47 | RAD ---
PROCEDURE: HISTORY: Lumbar epidural ; spinal stenosis COMPARISON: None TECHNIQUE: Total fluoroscopic time utilized during the procedure: In 0.3 seconds. Total dose 0.65 mGy cm squared FINDINGS: Submitted images from the current procedure: 1 Please refer to the physician's notes performing the procedure. IMPRESSION: Less than 1 hour fluoroscopic time utilized during performance of the procedure
--- NOTE | 2016-12-11 17:31 | CP.PCM.PN ---
Subjective - Date & Time of Evaluation Date of Evaluation: 12/11/16 Time of Evaluation: 11:00 - Subjective Subjective: BAKER CHEF NOTES pT SEEN TODAY AWAKE, ALERT, NAD 66 YR OLD FEMALE ADMITTED FOR BACK PAIN, S/P FALL AT HOME FOR OR TODAY FOR EPIDURAL STEROID INJECTION BY DR. VALDEZ FRO SPINAL STENOSIS D/W DR. VALDEZ AFTER PROCEDURE, CLEARED FROM NEUROLOGY STAND POINT FOR DISCHARGE TO REHAB D/W , FOR REHAB , AT [facility] , PENDING ACCEPTANCE FROM FACILITY THE ABOVE PLAN DISCUSSED WITH DR. JULIEN AND AGREES WITH PLAN Objective - Vital Signs/Intake and Output Vital Signs (last 24 hours): Temp Pulse Resp BP Pulse Ox 98.1 F 80 20 150/57 L 99 12/11/16 15:00 12/11/16 15:27 12/11/16 15:00 12/11/16 15:27 12/11/16 15:27 Intake and Output: 12/11/16 12/11/16 06:59 18:59 Intake Total 670 50 Balance 670 50 - Medications Medications: Current Medications Acetaminophen (Tylenol 325mg Tab) 650 mg PO Q4 PRN PRN Reason: Pain, moderate (4-7) Last Admin: 12/08/16 06:30 Dose: 650 mg Enoxaparin Sodium (Lovenox) 40 mg SC DAILY [facility] Last Admin: 12/10/16 12:39 Dose: 40 mg Piperacillin Sod/Tazobactam Sod (Zosyn 3.375 Gm Iv Premix) 3.375 gm in 50 mls @ 100 mls/hr IVPB Q8H [facility] Last Admin: 12/11/16 05:22 Dose: 100 mls/hr Imipenem/Cilastatin Sodium 500 (mg/ Sodium Chloride) 100 mls @ 100 mls/hr IVPB Q8H [facility] Last Admin: 12/11/16 11:09 Dose: 100 mls/hr Insulin Human Regular (Novolin R) 0 unit SC ACHS [facility] PRN Reason: Protocol Last Admin: 12/11/16 11:30 Dose: Not Given Metoprolol Succinate (Toprol Xl) 50 mg PO DAILY [facility] Last Admin: 12/11/16 10:00 Dose: Not Given Morphine Sulfate (Morphine) 1 mg IVP Q15M PRN PRN Reason: Pain, severe (8-10) Risperidone (Risperdal Tab) 0.25 mg PO HS [facility] Last Admin: 12/10/16 21:38 Dose: 0.25 mg Rosuvastatin Calcium (Crestor) 5 mg PO HS [facility] Last Admin: 12/10/16 21:38 Dose: 5 mg - Labs Labs: 12/11/16 07:07 12/11/16 07:07 PT 11.6 SECONDS (9.7-12.2) 12/11/16 07:07 INR 1.0 12/11/16 07:07 APTT 26 SECONDS (21-34) 12/11/16 07:07
--- NOTE | 2016-12-11 21:07 | CP.PCM.PN ---
Subjective - Date & Time of Evaluation Date of Evaluation: 12/11/16 - Subjective Subjective: ON PT AND [facility] IS NON AMBULATORY, NO FEVER, NO SOB Objective - Vital Signs/Intake and Output Vital Signs (last 24 hours): Temp Pulse Resp BP Pulse Ox 98.1 F 80 20 150/57 L 99 12/11/16 15:00 12/11/16 15:27 12/11/16 15:00 12/11/16 15:27 12/11/16 15:27 Intake and Output: 12/11/16 12/12/16 18:59 06:59 Intake Total 50 Balance 50 - Medications Medications: Current Medications Acetaminophen (Tylenol 325mg Tab) 650 mg PO Q4 PRN PRN Reason: Pain, moderate (4-7) Last Admin: 12/08/16 06:30 Dose: 650 mg Enoxaparin Sodium (Lovenox) 40 mg SC DAILY [facility] Last Admin: 12/10/16 12:39 Dose: 40 mg Piperacillin Sod/Tazobactam Sod (Zosyn 3.375 Gm Iv Premix) 3.375 gm in 50 mls @ 100 mls/hr IVPB Q8H [facility] Last Admin: 12/11/16 05:22 Dose: 100 mls/hr Imipenem/Cilastatin Sodium 500 (mg/ Sodium Chloride) 100 mls @ 100 mls/hr IVPB Q8H [facility] Last Admin: 12/11/16 19:46 Dose: 100 mls/hr Insulin Human Regular (Novolin R) 0 unit SC ACHS [facility] PRN Reason: Protocol Last Admin: 12/11/16 16:30 Dose: Not Given Metoprolol Succinate (Toprol Xl) 50 mg PO DAILY [facility] Last Admin: 12/11/16 10:00 Dose: Not Given Morphine Sulfate (Morphine) 1 mg IVP Q15M PRN PRN Reason: Pain, severe (8-10) Risperidone (Risperdal Tab) 0.25 mg PO HS [facility] Last Admin: 12/10/16 21:38 Dose: 0.25 mg Rosuvastatin Calcium (Crestor) 5 mg PO HS [facility] Last Admin: 12/10/16 21:38 Dose: 5 mg - Labs Labs: 12/11/16 07:07 12/11/16 07:07 PT 11.6 SECONDS (9.7-12.2) 12/11/16 07:07 INR 1.0 12/11/16 07:07 APTT 26 SECONDS (21-34) 12/11/16 07:07 - Constitutional Appears: Non-toxic, No Acute Distress - Head Exam Head Exam: ATRAUMATIC, NORMAL INSPECTION, NORMOCEPHALIC - Eye Exam Eye Exam: EOMI, Normal appearance, PERRL Pupil Exam: NORMAL ACCOMODATION - ENT Exam ENT Exam: Mucous Membranes Moist, Normal Exam, Normal Oropharynx, TM's Normal Bilaterally - Neck Exam Neck Exam: Normal Inspection - Respiratory Exam Respiratory Exam: Clear to Ausculation Bilateral, NORMAL BREATHING PATTERN - Cardiovascular Exam Cardiovascular Exam: REGULAR RHYTHM, +S1, +S2 - GI/Abdominal Exam GI & Abdominal Exam: Normal Bowel Sounds - Extremities Exam Extremities Exam: Full ROM, Normal Capillary Refill - Neurological Exam Neurological Exam: Abnormal Gait, Alert, Awake, CN II-XII Intact - Psychiatric Exam Psychiatric exam: Normal Mood - Skin Skin Exam: Intact Assessment and Plan (1) Fall Status: Acute (2) Hypertension Status: Chronic (3) Dementia Status: Chronic
--- NOTE | 2016-12-11 23:38 | OP ---
PROCEDURE DATE: 12/11/2016 PREOPERATIVE DIAGNOSIS: Spinal stenosis. POSTOPERATIVE DIAGNOSIS: Spinal stenosis. OPERATION: Epidurogram of the lumbar spine. DESCRIPTION OF PROCEDURE: After the patient was positioned prone on the operating table with her back sterilely prepped and draped and a Tuohy needle placed and was felt to be the epidural space, an epidurogram of the lumbar spine was performed. A 1.5 mL of Omnipaque 180 contrast was injected through the needle and fluid freely without resistance. As visualized intraoperative in the fluoroscopy monitors noted the outlining epidural space with evidence of stenosis and good flow present cephalad. Having verified location of the needle we then proceeded with administration of the patient's epidural injection. Rodolfo Bearden MD
[2016-12-12] MEDS: Piperacill/Tazo 3.375gm in Dex 3.375 GM/50 ML BAG IVPB SCH ×3 (00:03→13:37)
--- NOTE | 2016-12-12 01:22 | OP ---
PROCEDURE DATE: 12/11/2016 PREOPERATIVE DIAGNOSIS: Spinal stenosis. POSTOPERATIVE DIAGNOSIS: Spinal stenosis. OPERATION: Left L5-S1 lumbar epidural steroid injection. SURGEON: Rodolfo Bearden MD TYPE OF ANESTHESIA: IV sedation and local. DESCRIPTION OF PROCEDURE: The patient was brought to the operating room and placed on the operating table in the prone position. Intravenous sedation was administered while her back was sterilely prepped and draped. The sites for needle insertion was located under fluoroscopy and infiltrated lidocaine. A 20-gauge Tuohy needle was inserted down to the level of superior lamina of S1 and slowly advanced cephalad until it was felt to go through the ligamentum. At that time there was loss of resistance. We tried syringe but no fluid on draw back. In order to confirm location of the needle, we proceeded with an epidurogram of lumbar spine. It should be dictated separately. After the completion of epidurogram, the patient received her epidural injection. A mix of 80 mg of Depo-Medrone and normal saline was slowly injected into the epidural space and fluid freely without resistance. The needle was then withdrawn, a bacitracin bandage dressing applied. The patient was gently transferred back on to a stretcher in the supine position. She was taken to the recovery room in stable condition. She tolerated the procedure well. Rodolfo Bearden MD MTDD
[2016-12-12 08:09] VITALS: BP 156/60; PULSE 85; O2SAT 98
[2016-12-12] MEDS: (Novolin R) Insulin Human Regular 100 units/ml vial SC SCH ×3 (08:31→17:37)
[2016-12-12] MEDS: Metoprolol Succinate 50 mg XL Tab PO SCH (10:32)
--- NOTE | 2016-12-12 16:53 | CP.PCM.PN ---
Subjective - Date & Time of Evaluation Date of Evaluation: 12/12/16 Time of Evaluation: 11:00 - Subjective Subjective: AWAKE, ALERT, IMPROVING ORAL INTAKE, NAD. Objective - Vital Signs/Intake and Output Vital Signs (last 24 hours): Temp Pulse Resp BP Pulse Ox 98 F 85 20 156/60 H 98 12/12/16 08:00 12/12/16 15:26 12/12/16 08:00 12/12/16 15:26 12/12/16 15:26 Intake and Output: 12/12/16 12/12/16 06:59 18:59 Intake Total 270 100 Balance 270 100 - Medications Medications: Current Medications Acetaminophen (Tylenol 325mg Tab) 650 mg PO Q4 PRN PRN Reason: Pain, moderate (4-7) Last Admin: 12/08/16 06:30 Dose: 650 mg Enoxaparin Sodium (Lovenox) 40 mg SC [facility]ILY [facility] Last Admin: 12/10/16 12:39 Dose: 40 mg Imipenem/Cilastatin Sodium 500 (mg/ Sodium Chloride) 100 mls @ 100 mls/hr IVPB Q8H [facility] Last Admin: 12/12/16 10:32 Dose: 100 mls/hr Insulin Human Regular (Novolin R) 0 unit SC ACHS PING PRN Reason: Protocol Last Admin: 12/12/16 12:28 Dose: 1 unit Metoprolol Succinate (Toprol Xl) 50 mg PO DAILY [facility] Last Admin: 12/12/16 10:32 Dose: 50 mg Morphine Sulfate (Morphine) 1 mg IVP Q15M PRN PRN Reason: Pain, severe (8-10) Risperidone (Risperdal Tab) 0.25 mg PO HS [facility] Last Admin: 12/11/16 22:16 Dose: 0.25 mg Rosuvastatin Calcium (Crestor) 5 mg PO HS [facility] Last Admin: 12/11/16 21:23 Dose: 5 mg - Labs Labs: 12/11/16 07:07 12/11/16 07:07 PT 11.6 SECONDS (9.7-12.2) 12/11/16 07:07 INR 1.0 12/11/16 07:07 APTT 26 SECONDS (21-34) 12/11/16 07:07 Assessment and Plan - Assessment and Plan (Free Text) Assessment: Patient is seen and examined. Awake, alert, denies sob or chest pains. Cleared by neurosurgery, d/w DR Russell, plan to discharge to [facility] in [place] for 5 days more for UTI.
[2016-12-12 17:33] VITALS: TEMP 99.3
--- NOTE | 2016-12-12 23:31 | CP.PCM.DIS ---
Provider - Provider Date of Admission: 12/08/16 00:12 Attending physician: Abram Russell MD Diagnosis - Discharge Diagnosis (1) Fall Status: Acute (2) Hypertension Status: Chronic (3) Dementia Status: Chronic Hospital Course - Lab Results Lab Results: Most Recent Lab Values WBC 6.1 K/uL (4.8-10.8) 12/11/16 07:07 RBC 3.54 Mil/uL (3.80-5.20) L 12/11/16 07:07 Hgb 11.0 g/dL (11.0-16.0) 12/11/16 07:07 Hct 33.7 % (34.0-47.0) L 12/11/16 07:07 MCV 95.3 fL (81.0-99.0) 12/11/16 07:07 MCH 31.0 pg (27.0-31.0) 12/11/16 07:07 MCHC 32.6 g/dL (33.0-37.0) L 12/11/16 07:07 RDW 13.2 % (11.5-14.5) 12/11/16 07:07 Plt Count 107 K/uL (130-400) L 12/11/16 07:07 MPV 10.6 fL (7.2-11.7) 12/11/16 07:07 Neut % (Auto) 58.6 % (50.0-75.0) 12/11/16 07:07 Lymph % (Auto) 28.2 % (20.0-40.0) 12/11/16 07:07 [place] % (Auto) 12.1 % (0.0-10.0) H 12/11/16 07:07 Eos % (Auto) 0.8 % (0.0-4.0) 12/11/16 07:07 Baso % (Auto) 0.3 % (0.0-2.0) 12/11/16 07:07 Neut # 3.6 K/uL (1.8-7.0) 12/11/16 07:07 Lymph # 1.7 K/uL (1.0-4.3) 12/11/16 07:07 [place] # 0.7 K/uL (0.0-0.8) 12/11/16 07:07 Eos # 0.1 K/uL (0.0-0.7) 12/11/16 07:07 Baso # 0.0 K/uL (0.0-0.2) 12/11/16 07:07 PT 11.6 SECONDS (9.7-12.2) 12/11/16 07:07 INR 1.0 12/11/16 07:07 APTT 26 SECONDS (21-34) 12/11/16 07:07 Sodium 144 mmol/L (132-148) 12/11/16 07:07 Potassium 3.7 mmol/L (3.6-5.2) 12/11/16 07:07 Chloride 109 mmol/L (98-107) H 12/11/16 07:07 Carbon Dioxide 25 mmol/L (22-30) 12/11/16 07:07 Anion Gap 13 (10-20) 12/11/16 07:07 BUN 21 mg/dL (7-17) H 12/11/16 07:07 Creatinine 1.2 MG/DL (0.7-1.2) 12/11/16 07:07 Est GFR ( Amer) 54 12/11/16 07:07 Est GFR (Non-Af Amer) 45 12/11/16 07:07 POC Glucose (mg/dL) 161 mg/dL (65-110) H 12/12/16 17:19 Random Glucose 141 mg/dL (65-105) H 12/11/16 07:07 Calcium 8.8 mg/dl (8.6-10.4) 12/11/16 07:07 Total Bilirubin 0.5 mg/dL (0.2-1.3) 12/07/16 20:31 AST 23 U/L (14-36) 12/07/16 20:31 ALT 26 U/L (9-52) 12/07/16 20:31 Alkaline Phosphatase 43 U/L (38-126) 12/07/16 20:31 Total Creatine Kinase 93 U/L (30-135) 12/08/16 04:29 Total Protein 6.4 g/dL (6.3-8.3) 12/07/16 20:31 Albumin 3.2 g/dL (3.5-5.0) L 12/07/16 20:31 Globulin 3.2 gm/dL (2.2-3.9) 12/07/16 20:31 Albumin/Globulin Ratio 1.0 (1.0-2.1) 12/07/16 20:31 Vitamin B12 462 pg/mL (239-931) 12/08/16 04:29 TSH 3rd Generation 2.67 mIU/L (0.46-4.68) 12/08/16 04:29 Urine Color Yellow (YELLOW) 12/07/16 21:23 Urine Clarity Clear (Clear) 12/07/16 21:23 Urine pH 7.0 (5.0-8.0) 12/07/16 21:23 Ur Specific Mcallister 1.014 (1.003-1.030) 12/07/16 21:23 Urine Protein Negative mg/dL (NEGATIVE) 12/07/16 21:23 Urine Glucose (UA) Normal mg/dL (Normal) 12/07/16 21:23 Urine Ketones Negative mg/dL (NEGATIVE) 12/07/16 21:23 Urine Blood Negative (NEGATIVE) 12/07/16 21:23 Urine Nitrate Negative (NEGATIVE) 12/07/16 21:23 Urine Bilirubin Negative (NEGATIVE) 12/07/16 21:23 Urine Urobilinogen 4.0 mg/dL (0.2-1.0) H 12/07/16 21:23 Ur Leukocyte Esterase Negative Raymond/uL (Negative) 12/07/16 21:23 Urine WBC (Auto) 4 /hpf (0-5) 12/07/16 21:23 Urine RBC (Auto) 2 /hpf (0-3) 12/07/16 21:23 Ur Squamous Epith Cells 9 /hpf (0-5) H 12/07/16 21:23 Amorphous Sediment Occ /ul (<OCC) H 12/07/16 21:23 Urine Bacteria Rare (<OCC) 12/07/16 21:23 - Hospital Course Hospital Course: 66 Y/O HF WITH FALLS WEAKNESS, AND CONFUSION ADMITTED AFTER A FALL AND SHE DID WELL AND SHE IS FOR DISCHARGE Discharge Exam - Head Exam Head Exam: ATRAUMATIC, NORMAL INSPECTION, NORMOCEPHALIC - Eye Exam Eye Exam: EOMI, Normal appearance, PERRL Pupil Exam: NORMAL ACCOMODATION - ENT Exam ENT Exam: Mucous Membranes Moist, Normal Exam, Normal Oropharynx, TM's Normal Bilaterally - Neck Exam Neck exam: Normal Inspection - Respiratory Exam Respiratory Exam: Clear to PA & Lateral, NORMAL BREATHING PATTERN - Cardiovascular Exam Cardiovascular Exam: REGULAR RHYTHM, +S1, +S2 - GI/Abdominal Exam GI & Abdominal Exam: Normal Bowel Sounds - Extremities Exam Extremities exam: normal capillary refill, pedal pulses present - Back Exam Back exam: NORMAL INSPECTION - Neurological Exam Neurological exam: Abnormal Gait, Altered, CN II-XII Intact, Motor Sensory Deficit, Oriented x3, Reflexes Normal - Psychiatric Exam Psychiatric exam: Agitated, Anxious, Depressed, Flat Affect - Skin Skin Exam: Dry Discharge Plan - Follow Up Plan Condition: GOOD Disposition: REHAB FACILITY/REHAB UNIT Instructions: Urinary Tract Infection in Women (DC), Heart Healthy Diet (DC), Dementia (GEN), Epidural Pain Control for Adults (DC), Epilepsy (DC), Chronic Hypertension (DC) Referrals: Abram Russell MD [Staff Provider] -
== END 2016-12-12 20:40 | DRG 74 ==
LOC: C.ER 19:21 → INTOOBSV 23:45 → C.9E 23:45 → OBSVTOIN 12-08 00:12 → C.3T 12-08 15:18 → C.9E 12-08 15:20 → C.3T 12-08 16:28
PROVIDERS: ADMIT Internal Medicine; ATTEND Internal Medicine
PROC: 3E0R33Z Introduction of Anti-inflammatory into Spinal Canal, Percutaneous Approach (ICD-10-PCS; principal; 2016-12-11 12:00)
DX: E11.40 Type 2 diabetes mellitus with diabetic neuropathy, unspecified (principal); E87.0 Hyperosmolality and hypernatremia; E11.649 Type 2 diabetes mellitus with hypoglycemia without coma; G30.9 Alzheimer's disease, unspecified; F02.80 Dementia in other diseases classified elsewhere, unspecified severity, without behavioral disturbance, psychotic disturbance, mood disturbance, and anxiety; M48.57XA Collapsed vertebra, not elsewhere classified, lumbosacral region, initial encounter for fracture; N39.0 Urinary tract infection, site not specified; W18.30XA Fall on same level, unspecified, initial encounter; I10 Essential (primary) hypertension; Z91.81 History of falling; G40.909 Epilepsy, unspecified, not intractable, without status epilepticus; E86.0 Dehydration; Z79.4 Long term (current) use of insulin; M48.06 Spinal stenosis, lumbar region; M25.552 Pain in left hip

== ENCOUNTER 2017-07-09 22:36 | Observation (INO) | payer MEDICARE, OTHER ==
[2017-07-09 22:36] VITALS: BMI 21.6
--- NOTE | 2017-07-09 22:57 | C.PDOC ---
History Of Present Illness 66yo female with history of dementia, sent to ED by her half-way for evaluation of multiple falls previously. Patient was found today on the floor at her half-way. She currently reports a headache. Patient is a poor historian due to her clinical condition. - HPI Time Seen by Provider: 07/09/17 22:46 Chief Complaint (Nursing): Trauma History Per: Other (half-way records) History/Exam Limitations: clinical condition Past Medical History Reviewed: Historical Data, Nursing Documentation, Vital Signs Vital Signs: Last Vital Signs Temp 97.7 F 07/10/17 16:00 Pulse 80 07/10/17 16:00 Resp 20 07/10/17 16:00 BP 142/75 07/10/17 16:00 Pulse Ox 97 07/10/17 16:00 - Medical History PMH: Arthritis (BACK, KNEE AND ANKLE PAIN R>L), Dementia, Fractures, HTN ( PER SON), Hypercholesterolemia, Seizures ( PER SON) Denies: Diabetes, Hepatitis, HIV, Chronic Kidney Disease, Sexually Transmitted Disease Surgical History: No Surg Hx - [facility] Procedures INTRODUCTION OF ANTI-INFLAM INTO SPINAL CANAL, PERC APPROACH (12/08/16) Family History: States: Unknown Family Hx - Social History Hx Alcohol Use: No Hx Substance Use: No - Immunization History Hx Tetanus Toxoid Vaccination: No Hx Influenza Vaccination: No Hx Pneumococcal Vaccination: No Review Of Systems Except As Marked, All Systems Reviewed And Found Negative. Neurological: Positive for: Headache Physical Exam - Physical Exam Appears: Non-toxic Skin: Normal Color, Warm, Dry Head: Atraumatic, Normacephalic Eye(s): bilateral: Normal Inspection Chest: Symmetrical Cardiovascular: Rhythm Regular Respiratory: Normal Breath Sounds Gastrointestinal/Abdominal: Soft, No Tenderness Extremity: Other (contracted extremities) Neurological/Psych: Normal Motor, Normal Sensation ED Course And Treatment - Laboratory Results Result Diagrams: 07/09/17 23:59 07/09/17 23:59 O2 Sat by Pulse Oximetry: 98 (RA) Pulse Ox Interpretation: Normal Medical Decision Making Medical Decision Making: Impression: Multiple falls Plan: -- CT Head w/o contrast -- Labs -- Urinalysis -- CXR -- XR Pelvis Time: 4 CT Head FINDINGS: There is atrophy and chronic small vessel ischemic disease prominent for the patient's age. Bilateral basal ganglia calcifications. No intracranial hemorrhage. No intracranial edema. No fluid in the sinuses or mastoid air cells. No depressed fractures. IMPRESSION: No acute intracranial injury. Time: 003 CT Pelvis FINDINGS: There is artifact secondary to hardware. Degenerative changes involving the right hip are present within both the iliac bone and femur. There are no acute fractures identified. There is decreased height of the L5 vertebrae which could be either an acute or chronic finding although I favor the latter. If recent prior study from November 2016 is provided I would be happy to correlate. Chronic appearing linear area of scarring in the subcutaneous fat along the lateral aspect of the right hip. No acute muscular hematoma identified. The visualized bowel appears normal. A normal appendix is identified images 36 through 39. There are bilateral adnexal cysts measuring approximately 6 x 3 cm on the right measuring approximately 3 cm in diameter on the left likely of ovarian origin. Followup is recommended as discussed in prior lumbar spine CT report. Images not provided. IMPRESSION: No acute hip fractures identified. Chronic appearing findings as discussed above. Thank you for allowing us to participate in the care of your patient. Time: [address] Russell. 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 CT results show chronic but unable to rule out acute compression fracture. Patient to be admitted to [facility]. Disposition - Disposition Disposition: HOSPITALIZED Disposition Time: 01:00 Condition: FAIR - Clinical Impression Clinical Impression: Fall, UTI (urinary tract infection), Vertebral fracture - Scribe Statement The provider has reviewed the documentation as recorded by the Scribe (Jen Canas) Provider Attestation: All medical record entries made by the Scribe were at my direction and personally dictated by me. I have reviewed the chart and agree that the record accurately reflects my personal performance of the history, physical exam, medical decision making, and the department course for this patient. I have also personally directed, reviewed, and agree with the discharge instructions and disposition.
[2017-07-10 00:01] LABS: BASO % 0.4 % (0.0-2.0); EOS # 0.1 K/uL (0.0-0.7); EOS % 1.5 % (0.0-4.0); LYMPH # 1.6 K/uL (1.0-4.3); LYMPH % 28.5 % (20.0-40.0); MEAN CELL VOLUME 92.4 fL (81.0-99.0); MEAN CORPUSCULAR HEMOGLOBIN 30.4 pg (27.0-31.0); MEAN CORPUSCULAR HGB CONC 32.9 g/dL (33.0-37.0); MEAN PLATELET VOLUME 8.7 fL (7.2-11.7); MONO # 0.9 K/uL (0.0-0.8); MONO % 15.8 % (0.0-10.0); NEUT % 53.8 % (50.0-75.0); RBC 3.93 Mil/uL (3.80-5.20); RED CELL DISTRIBUTION WIDTH 13.4 % (11.5-14.5); WHITE BLOOD COUNT 5.6 K/uL (4.8-10.8)
--- NOTE | 2017-07-10 00:05 | CT ---
EXAM: CT Head Without Intravenous Contrast EXAM DATE/TIME: 07/09/2017 10:51 PM CLINICAL HISTORY: 66 years old, female; Injury or trauma; Fall; Initial encounter; Blunt trauma (contusions or hematomas) TECHNIQUE: Axial computed tomography images of the head/brain without intravenous contrast. All CT scans at this facility use one or more dose reduction techniques, viz.: automated exposure control; ma/kV adjustment per patient size (including targeted exams where dose is matched to indication; i.e. head); or iterative reconstruction technique. COMPARISON: No relevant prior studies available. FINDINGS: There is atrophy and chronic small vessel ischemic disease prominent for the patient's age. Bilateral basal ganglia calcifications. No intracranial hemorrhage. No intracranial edema. No fluid in the sinuses or mastoid air cells. No depressed fractures. IMPRESSION: No acute intracranial injury.
[2017-07-10 00:10] LABS: PROTHROMBIN TIME 11.6 SECONDS (9.7-12.2)
[2017-07-10 00:22] LABS: ALB/GLOB RATIO 0.9 (1.0-2.1); ALBUMIN 3.6 g/dL (3.5-5.0); ALT/SGPT 35 U/L (9-52); AST/SGOT 43 U/L (14-36); BLOOD UREA NITROGEN 26 mg/dL (7-17); CALCIUM 9.1 mg/dl (8.6-10.4); GFR AFRICAN-AMERICAN 54; GFR NON-AFRICAN AMERICAN 45
--- NOTE | 2017-07-10 00:31 | CT ---
EXAM: CT Pelvis Without Intravenous Contrast EXAM DATE/TIME: 07/09/2017 11:34 PM CLINICAL HISTORY: 66 years old, female; Pain; Hip pain and pelvic pain; Bilateral; Prior surgery; Surgery type: Right hip surgery; Additional info: Fall. It was done bilateral because pt. Had pain both side TECHNIQUE: Axial computed tomography images of the pelvis without intravenous contrast. All CT scans at this facility use one or more dose reduction techniques, viz.: automated exposure control; ma/kV adjustment per patient size (including targeted exams where dose is matched to indication; i.e. head); or iterative reconstruction technique. Coronal and sagittal reformatted images were created and reviewed. COMPARISON: No relevant prior studies available. FINDINGS: There is artifact secondary to hardware. Degenerative changes involving the right hip are present within both the iliac bone and femur. There are no acute fractures identified. There is decreased height of the L5 vertebrae which could be either an acute or chronic finding although I favor the latter. If recent prior study from November 2016 is provided I would be happy to correlate. Chronic appearing linear area of scarring in the subcutaneous fat along the lateral aspect of the right hip. No acute muscular hematoma identified. The visualized bowel appears normal. A normal appendix is identified images 36 through 39. There are bilateral adnexal cysts measuring approximately 6 x 3 cm on the right measuring approximately 3 cm in diameter on the left likely of ovarian origin. Followup is recommended as discussed in prior lumbar spine CT report. Images not provided. IMPRESSION: No acute hip fractures identified. Chronic appearing findings as discussed above.
[2017-07-10 00:43] LABS: SQUAMOUS EPITHIAL 7 /hpf (0-5); URINE BACTERIA FEW (<OCC); URINE BILIRUBIN NEGATIVE (NEGATIVE); URINE BLOOD NEGATIVE (NEGATIVE); URINE CLARITY Hazy (Clear); URINE COLOR Yellow (YELLOW); URINE GLUCOSE (UA) NORMAL (Normal); URINE LEUKOCYTE ESTERASE 2+ Leu/uL (Negative); URINE PROTEIN NEGATIVE (NEGATIVE); URINE UROBILINOGEN NORMAL mg/dL (0.2-1.0)
[2017-07-10] MEDS ORDERED: Piperacillin/Tazobact 3.375 gm 100 ML IVPB STA (00:54)
[2017-07-10] MEDS ORDERED: Magnesium Hydroxide Susp 30 ml UD PO PRN (01:39)
[2017-07-10] MEDS: (Novolin R) Insulin Human Regular 100 units/ml vial SC SCH ×2 (08:15→12:30)
--- NOTE | 2017-07-10 08:30 | RAD ---
HISTORY: fall COMPARISON: 12/07/2016 FINDINGS: LUNGS: Mild hazy opacity in the lung bases. PLEURA: Biapical pleural parenchymal thickening noted. No pneumothorax. No evidence of pleural effusion. CARDIOVASCULAR: Rounded opacity obscuring the right hilum, essentially stable given differences in technique. Calcified descending aorta. Prominent aortic knob. OSSEOUS STRUCTURES: Degenerative changes. Osteopenia. VISUALIZED UPPER ABDOMEN: Limited visualization. Surgical clips in the right upper quadrant. OTHER FINDINGS: None. IMPRESSION: No significant interval change. If indicated, PA lateral chest radiographs be obtained.
--- NOTE | 2017-07-10 09:16 | RAD ---
Pelvis History: Fall. Comparison: Comparison is made to pelvic radiograph from August 2016. Findings: (limited evaluation). Right hip replacement. Significant osteopenia. No radiographically apparent fracture. Extensive degenerative changes of lower lumbar spine. Joint space narrowing of the left hip. Impression: No obvious fracture. Limited evaluation.
[2017-07-10] MEDS: Enoxaparin 40 mg Syringe SC SCH (10:01)
[2017-07-10] MEDS: Metoprolol Succinate 25 mg XL Tab PO SCH (10:02)
--- NOTE | 2017-07-10 23:10 | CON ---
DATE: PSYCHIATRIC CONSULTATION CHIEF COMPLAINT AND REASON FOR CONSULTATION: The patient was referred by Dr. Russell for co-management and evaluation. The patient has history of dementia, Alzheimer's type, with behavioral problems. The patient recently was admitted at [facility] Unit, came to the intermediate and fell and was admitted to the hospital, the patient was referred for comanagement. HISTORY OF PRESENT ILLNESS: This is case of a 66-year-old female who is well known to me with long history of dementia Alzheimer's type. The patient was sent in from [facility] at [facility] . The patient has been falling. The patient was just discharged from the [facility] earlier today and went to the intermediate for long-term care, but fell. She was also noted to be restless. She was complaining of headaches. The patient was referred for co-management. The patient was treated at [place] and was given the following meds. The patient was on Depakote 250 mg b.i.d. She was given Namenda 10 mg b.i.d., and then the patient was also given ziprasidone. The patient was given Xanax also 0.5 mg every 8 hours. These were the three medications that the patient was taking when discharged from [place]; Depakote, Xanax, and Namenda. Today, when seen, she was still confused but she seem to be in safety observation room, she was eating her lunch, close to her baseline, and still looking for family, stating that she wants to go home. The patient also has started tardive dyskinesia_ secondary to prior exposure to neuroleptics. But other than that, her behavior is close to baseline. She has not complained of headache. The patient had CAT scan of the head done that shows no acute bleed. PAST PSYCHIATRIC HISTORY: History of Alzheimer's dementia, advanced. She is taking Depakote, Xanax, and Namenda. The patient also has history of delirium. Review of her labs, the patient showed evidence of issue of UTI. The patient had taken antibiotics at this time. ALLERGIES: THE PATIENT HAS NO KNOWN ALLERGIES. PSYCHOSOCIAL HISTORY: She denies any psychosocial history. The patient's power of deputy prosecuting attorney is her son, Drew. The patient is a long-term resident of [facility]. CURRENT MEDICATIONS: Include sucralfate, ceftriaxone, Cozaar, Crestor, Depakene or Valproate 250 mg two times a day, Feosol, Lovenox, milk of magnesia, Namenda 10 mg b.i.d., Novolin R, Pepcid, Toprol, Xanax 0.5 mg every 8 hours. She is compliant with her meds. REVIEW OF SYSTEMS: The patient is alert, verbal, still feel very confused, but more manageable, oriented only to person, seen in the four bedded room, eating her lunch. PHYSICAL EXAMINATION: VITAL SIGNS: Temperature 97, pulse 83, blood pressure 121/78, respirations 20, oxygen saturation is 96%. SKIN: No diaphoresis. HEENT: No headache and no dizziness. RESPIRATORY: No dyspnea. CARDIOVASCULAR: No chest pain. GASTROINTESTINAL: Good appetite. EXTREMITIES: The patient moves extremities. MUSCULOSKELETAL: Feels weak. NEUROLOGIC: Alert with periods of confusion. GENITOURINARY: No complaints of dysuria. MENTAL STATUS EXAMINATION: An elderly female who looks stated age, oriented x1, still confused, who is 5 feet 5 inches, weight 155 pounds. The patient's mood seems to be much calmer. Affect is reactive. Speech is spontaneous, conversing in [place]. Thought process, still confused. Thought content, the patient wants to go home. No overt hallucinations. No paranoia or suicidal ideation. Attention and memory seems to be limited. Insight and judgment are limited. Impulse control is fair at this time. IMPRESSION: History of dementia, Alzheimer's type with behavioral problems, possibly superimposed delirium secondary to urinary track infection. PLAN AND RECOMMENDATIONS: The patient is seen, meds reviewed. Continue present management. We will keep the patient in safety observation room as the patient has a fall risk. She needs to be monitored. Continue antibiotics as ordered. Psych su, the patient was just discharged from [facility]. I would suggest to keep her current psych medications Xanax, Depakene, and Namenda as ordered. The patient has been seen, seems to be closed to her baseline although she needs antibiotics to treat her infection, which can cause worsening of her mental status in top of patient with Alzheimer's dementia. Rick Ribeiro MD [facility] # [id number] MTDPatricia
--- NOTE | 2017-07-10 23:31 | CP.PCM.HP ---
History of Present Illness - History of Present Illness History of Present Illness: History Of Present Illness 66yo female with history of dementia, sent to ED by her correction for evaluation of multiple falls previously. Patient was found today on the floor at her correction. She currently reports a headache. Patient is a poor historian due to her clinical condition. Present on Admission - Present on Admission Any Indicators Present on Admission: Yes Past Patient History - Infectious Disease Hx of Infectious Diseases: None - Past Medical History & Family History Past Medical History?: Yes - Past Social History Smoking Status: Never Smoked - CARDIAC Hx Hypercholesterolemia: Yes Hx Hypertension: Yes ( PER SON) - PULMONARY Hx Tuberculosis: No - NEUROLOGICAL Hx Dementia: Yes Hx Seizures: Yes ( PER SON) - HEENT Hx HEENT Problems: No - RENAL Hx Chronic Kidney Disease: No - ENDOCRINE/METABOLIC Hx Diabetes Mellitus Type 2: Yes - HEMATOLOGICAL/ONCOLOGICAL Hx Human Immunodeficiency Virus (HIV): No - INTEGUMENTARY Hx Dermatological Problems: No - MUSCULOSKELETAL/RHEUMATOLOGICAL Hx Arthritis: Yes (BACK, KNEE AND ANKLE PAIN R>L) Hx Fractures: Yes - GASTROINTESTINAL Hx Gastrointestinal Disorders: Yes Hx Gastroesophageal Reflux: Yes - GENITOURINARY/GYNECOLOGICAL Hx Sexually Transmitted Disorders: No - PSYCHIATRIC Hx Substance Use: No - SURGICAL HISTORY Hx Tubal Ligation: Yes - ANESTHESIA Hx Anesthesia: Yes Hx Anesthesia Reactions: No Meds Home Medications: Home Medication List Medication Instructions Recorded Confirmed Type Cephalexin [cephalexin] 500 mg PO Q12 5 Days #10 cap 07/11/17 Rx Memantine [Namenda] 10 mg PO BID tab 07/11/17 Rx Allergies/Adverse Reactions: Allergies Allergy/AdvReac Type Severity Reaction Status Date / Time No Known Allergies Allergy Verified 07/03/17 23:01 Physical Exam - Constitutional Appears: No Acute Distress, Agitated, Confused - Eye Exam Eye Exam: EOMI, Normal appearance, PERRL Pupil Exam: NORMAL ACCOMODATION, PERRL - Respiratory Exam Respiratory Exam: Clear to Auscultation Bilateral, NORMAL BREATHING PATTERN - Cardiovascular Exam Cardiovascular Exam: REGULAR RHYTHM - GI/Abdominal Exam GI & Abdominal Exam: Normal Bowel Sounds, Soft. absent: Tenderness Results - Vital Signs Recent Vital Signs: Last Vital Signs Temp 98 F 07/10/17 21:27 Pulse 78 07/10/17 21:27 Resp 18 07/10/17 21:27 BP 140/71 07/10/17 21:27 Pulse Ox 96 03/23/18 21:27 - Labs Result Diagrams: 07/11/17 06:30 07/11/17 06:30 Labs: Laboratory Results - last 24 hr 07/09/17 07/09/17 07/09/17 23:55 23:59 23:59 WBC 5.6 RBC 3.93 Hgb 12.0 Hct 36.3 MCV 92.4 D MCH 30.4 MCHC 32.9 L RDW 13.4 Plt Count 160 MPV 8.7 Neut % (Auto) 53.8 Lymph % (Auto) 28.5 [place] % (Auto) 15.8 H Eos % (Auto) 1.5 Baso % (Auto) 0.4 Neut # (Auto) 3.0 Lymph # (Auto) 1.6 [place] # (Auto) 0.9 H Eos # (Auto) 0.1 Baso # (Auto) 0.0 PT 11.6 INR 1.0 APTT 30 Sodium Potassium Chloride Carbon Dioxide Anion Gap BUN Creatinine Est GFR ( Amer) Est GFR (Non-Af Amer) POC Glucose (mg/dL) Random Glucose Calcium Total Bilirubin AST ALT Alkaline Phosphatase Total Creatine Kinase Troponin I Total Protein Albumin Globulin Albumin/Globulin Ratio Urine Color Yellow Urine Clarity Hazy Urine pH 5.0 Ur Specific [place] 1.021 Urine Protein Negative Urine Glucose (UA) Normal Urine Ketones Trace Urine Blood Negative Urine Nitrate Negative Urine Bilirubin Negative Urine Urobilinogen Normal Ur Leukocyte Esterase 2+ H Urine WBC (Auto) 64 H Urine RBC (Auto) 7 H Ur Squamous Epith Cells 7 H Urine Bacteria Few H 07/09/17 07/10/17 07/10/17 23:59 07:17 11:09 WBC RBC Hgb Hct MCV MCH MCHC RDW Plt Count MPV Neut % (Auto) Lymph % (Auto) [place] % (Auto) Eos % (Auto) Baso % (Auto) Neut # (Auto) Lymph # (Auto) [place] # (Auto) Eos # (Auto) Baso # (Auto) PT INR APTT Sodium 146 Potassium 4.2 Chloride 104 Carbon Dioxide 28 Anion Gap 18 BUN 26 H Creatinine 1.2 Est GFR ( Amer) 54 Est GFR (Non-Af Amer) 45 POC Glucose (mg/dL) 91 219 H Random Glucose 96 Calcium 9.1 Total Bilirubin 0.2 AST 43 H D ALT 35 Alkaline Phosphatase 91 Total Creatine Kinase 33 Troponin I < 0.0120 Total Protein 7.5 Albumin 3.6 Globulin 3.9 Albumin/Globulin Ratio 0.9 L Urine Color Urine Clarity Urine pH Ur Specific [place] Urine Protein Urine Glucose (UA) Urine Ketones Urine Blood Urine Nitrate Urine Bilirubin Urine Urobilinogen Ur Leukocyte Esterase Urine WBC (Auto) Urine RBC (Auto) Ur Squamous Epith Cells Urine Bacteria 07/10/17 07/10/17 07/10/17 14:38 14:40 14:58 WBC RBC Hgb Hct MCV MCH MCHC RDW Plt Count MPV Neut % (Auto) Lymph % (Auto) [place] % (Auto) Eos % (Auto) Baso % (Auto) Neut # (Auto) Lymph # (Auto) [place] # (Auto) Eos # (Auto) Baso # (Auto) PT INR APTT Sodium Potassium Chloride Carbon Dioxide Anion Gap BUN Creatinine Est GFR ( Amer) Est GFR (Non-Af Amer) POC Glucose (mg/dL) 46 L 44 L 59 L Random Glucose Calcium Total Bilirubin AST ALT Alkaline Phosphatase Total Creatine Kinase Troponin I Total Protein Albumin Globulin Albumin/Globulin Ratio Urine Color Urine Clarity Urine pH Ur Specific [place] Urine Protein Urine Glucose (UA) Urine Ketones Urine Blood Urine Nitrate Urine Bilirubin Urine Urobilinogen Ur Leukocyte Esterase Urine WBC (Auto) Urine RBC (Auto) Ur Squamous Epith Cells Urine Bacteria 07/10/17 07/10/17 15:02 16:02 WBC RBC Hgb Hct MCV MCH MCHC RDW Plt Count MPV Neut % (Auto) Lymph % (Auto) [place] % (Auto) Eos % (Auto) Baso % (Auto) Neut # (Auto) Lymph # (Auto) [place] # (Auto) Eos # (Auto) Baso # (Auto) PT INR APTT Sodium Potassium Chloride Carbon Dioxide Anion Gap BUN Creatinine Est GFR ( Amer) Est GFR (Non-Af Amer) POC Glucose (mg/dL) 57 L 130 H Random Glucose Calcium Total Bilirubin AST ALT Alkaline Phosphatase Total Creatine Kinase Troponin I Total Protein Albumin Globulin Albumin/Globulin Ratio Urine Color Urine Clarity Urine pH Ur Specific [place] Urine Protein Urine Glucose (UA) Urine Ketones Urine Blood Urine Nitrate Urine Bilirubin Urine Urobilinogen Ur Leukocyte Esterase Urine WBC (Auto) Urine RBC (Auto) Ur Squamous Epith Cells Urine Bacteria Assessment & Plan (1) Agitation Status: Acute (2) Dementia with behavioral disturbance Status: Acute (3) Fall Status: Acute
[2017-07-11 00:01] VITALS: RESP 20; O2SAT 98
[2017-07-11 07:01] LABS: BLOOD UREA NITROGEN 19 mg/dL (7-17); CALCIUM 8.7 mg/dl (8.6-10.4); GFR AFRICAN-AMERICAN > 60; GFR NON-AFRICAN AMERICAN > 60
[2017-07-11 07:14] LABS: BASO % 0.3 % (0.0-2.0); EOS # 0.1 K/uL (0.0-0.7); EOS % 2.7 % (0.0-4.0); HEMOGLOBIN 11.5 g/dL (11.0-16.0); LYMPH # 1.8 K/uL (1.0-4.3); LYMPH % 44.5 % (20.0-40.0); MEAN CELL VOLUME 92.6 fL (81.0-99.0); MEAN CORPUSCULAR HEMOGLOBIN 30.4 pg (27.0-31.0); MEAN CORPUSCULAR HGB CONC 32.8 g/dL (33.0-37.0); MEAN PLATELET VOLUME 9.1 fL (7.2-11.7); MONO # 0.5 K/uL (0.0-0.8); MONO % 12.7 % (0.0-10.0); NEUT # 1.6 K/uL (1.8-7.0); NEUT % 39.8 % (50.0-75.0); NRBC % 0.2 % (0.0-2.0); RBC 3.79 Mil/uL (3.80-5.20); RED CELL DISTRIBUTION WIDTH 13.2 % (11.5-14.5)
[2017-07-11 08:22] VITALS: BP 123/75; PULSE 82; TEMP 98
[2017-07-11] MEDS ORDERED: Influenza Vaccine 60 mcg/0.5 mL SYR (4YR UP) IM ONE (10:00)
[2017-07-11] MEDS: Enoxaparin 40 mg Syringe SC SCH (11:01)
[2017-07-11] MEDS: Metoprolol Succinate 25 mg XL Tab PO SCH (11:02)
--- NOTE | 2017-07-11 13:31 | CP.PCM.PN ---
Subjective - Date & Time of Evaluation Date of Evaluation: 07/11/17 Time of Evaluation: 13:31 - Subjective Subjective: PT SEEN TODAY SITTING UP IN BED AND TOLERATING LUNCH WELL. PT DENIES ANY ACUTE DISTRESS. PLEASANT. CASE DISCUSSED WITH DR. JULIEN AND OK TO D/C PT BACK TO [facility] TODAY. STILL PENDING URINE CULTURE RESULTS (SENT YESTERDAY PER CHART REVIEW) AND WILL BE F/U OP. PT WILL CONTINUE TAKING KEFLEX PO X5 DAYS AT [facility]. PT TO BE FOLLOWED BY DR. JULIEN. SW AWARE OF D/C. TO ARRANGE TRANSPORTATION FOR THIS AFTERNOON. NO FURTHER ORDERS. Objective - Vital Signs/Intake and Output Vital Signs (last 24 hours): Temp Pulse Resp BP Pulse Ox 98 F 82 20 123/75 98 07/11/17 08:22 07/11/17 08:22 07/11/17 08:22 07/11/17 08:22 07/11/17 08:22 Intake and Output: 07/11/17 07/11/17 06:59 18:59 Intake Total 350 300 Balance 350 300 - Medications Medications: Current Medications Acetaminophen (Tylenol 325mg Tab) 650 mg PO Q4H PRN PRN Reason: Pain, Mild (1-3) Alprazolam (Xanax) 0.5 mg PO Q8H [facility] Last Admin: 07/11/17 11:38 Dose: 0.5 mg Enoxaparin Sodium (Lovenox) 40 mg SC DAILY [facility] Last Admin: 07/11/17 11:01 Dose: 40 mg Famotidine (Pepcid) 20 mg PO DAILY [facility] Last Admin: 07/11/17 11:41 Dose: 20 mg Ferrous Sulfate (Feosol) 325 mg PO BID [facility] Last Admin: 07/11/17 11:02 Dose: 325 mg Ceftriaxone Sodium 1 gm/ (Sodium Chloride) 100 mls @ 200 mls/hr IVPB DAILY [facility] PRN Reason: Protocol Last Admin: 07/11/17 11:39 Dose: 200 mls/hr Losartan Potassium (Cozaar) 50 mg PO DAILY [facility] Last Admin: 07/11/17 11:02 Dose: 50 mg Magnesium Hydroxide (Milk Of Magnesia) 30 ml PO Q24H PRN PRN Reason: Constipation Memantine (Namenda) 10 mg PO BID [facility] Last Admin: 07/11/17 11:03 Dose: 10 mg Metoprolol Succinate (Toprol Xl) 25 mg PO DAILY [facility] Last Admin: 07/11/17 11:02 Dose: 25 mg Pneumococcal Polyvalent Vaccine (Pneumovax 23 Vaccine) 0.5 ml IM .ONCE ONE Stop: 07/12/17 10:01 Rosuvastatin Calcium (Crestor) 10 mg PO HS [facility] Last Admin: 07/10/17 21:17 Dose: 10 mg Sucralfate (Carafate Tab) 1 gm PO TID [facility] Last Admin: 07/11/17 11:02 Dose: 1 gm Valproate Sodium (Depakene Cap) 250 mg PO TID [facility] Last Admin: 07/11/17 11:03 Dose: 250 mg - Labs Labs: 07/11/17 06:30 07/11/17 06:30 PT 11.6 SECONDS (9.7-12.2) 07/09/17 23:59 INR 1.0 07/09/17 23:59 APTT 30 SECONDS (21-34) 07/09/17 23:59
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
[2017-07-12] MEDS ORDERED: Pneumococcal 23-Valent Vaccine IM ONE (10:00)
--- NOTE | 2017-07-12 13:58 | CP.PCM.DIS ---
Provider - Provider Date of Admission: 07/10/17 00:55 Attending physician: Abram Russell MD Primary care physician: Abram Russell MD Time Spent in preparation of Discharge (in minutes): 34 Hospital Course - Lab Results Lab Results: Micro Results 07/10/17 11:20 Urine Urine Culture - Final Escherichia Coli Most Recent Lab Values WBC 4.0 K/uL (4.8-10.8) L 07/11/17 06:30 RBC 3.79 Mil/uL (3.80-5.20) L 07/11/17 06:30 Hgb 11.5 g/dL (11.0-16.0) 07/11/17 06:30 Hct 35.1 % (34.0-47.0) 07/11/17 06:30 MCV 92.6 fL (81.0-99.0) 07/11/17 06:30 MCH 30.4 pg (27.0-31.0) 07/11/17 06:30 MCHC 32.8 g/dL (33.0-37.0) L 07/11/17 06:30 RDW 13.2 % (11.5-14.5) 07/11/17 06:30 Plt Count 166 K/uL (130-400) 07/11/17 06:30 MPV 9.1 fL (7.2-11.7) 07/11/17 06:30 Neut % (Auto) 39.8 % (50.0-75.0) L 07/11/17 06:30 Lymph % (Auto) 44.5 % (20.0-40.0) H 07/11/17 06:30 [place] % (Auto) 12.7 % (0.0-10.0) H 07/11/17 06:30 Eos % (Auto) 2.7 % (0.0-4.0) 07/11/17 06:30 Baso % (Auto) 0.3 % (0.0-2.0) 07/11/17 06:30 Neut # (Auto) 1.6 K/uL (1.8-7.0) L 07/11/17 06:30 Lymph # (Auto) 1.8 K/uL (1.0-4.3) 07/11/17 06:30 [place] # (Auto) 0.5 K/uL (0.0-0.8) 07/11/17 06:30 Eos # (Auto) 0.1 K/uL (0.0-0.7) 07/11/17 06:30 Baso # (Auto) 0.0 K/uL (0.0-0.2) 07/11/17 06:30 PT 11.6 SECONDS (9.7-12.2) 07/09/17 23:59 INR 1.0 07/09/17 23:59 APTT 30 SECONDS (21-34) 07/09/17 23:59 Sodium 141 mmol/L (132-148) 07/11/17 06:30 Potassium 4.1 mmol/L (3.6-5.2) 07/11/17 06:30 Chloride 106 mmol/L (98-107) 07/11/17 06:30 Carbon Dioxide 27 mmol/L (22-30) 07/11/17 06:30 Anion Gap 13 (10-20) 07/11/17 06:30 BUN 19 mg/dL (7-17) H 07/11/17 06:30 Creatinine 0.9 mg/dL (0.7-1.2) 07/11/17 06:30 Est GFR ( Amer) > 60 07/11/17 06:30 Est GFR (Non-Af Amer) > 60 07/11/17 06:30 POC Glucose (mg/dL) 111 mg/dL (65-110) H 07/11/17 16:38 Random Glucose 89 mg/dL (65-105) 07/11/17 06:30 Calcium 8.7 mg/dl (8.6-10.4) 07/11/17 06:30 Total Bilirubin 0.2 mg/dL (0.2-1.3) 07/09/17 23:59 AST 43 U/L (14-36) H D 07/09/17 23:59 ALT 35 U/L (9-52) 07/09/17 23:59 Alkaline Phosphatase 91 U/L (38-126) 07/09/17 23:59 Total Creatine Kinase 33 U/L (30-135) 07/09/17 23:59 Troponin I < 0.0120 ng/mL (0.00-0.120) 07/09/17 23:59 Total Protein 7.5 g/dL (6.3-8.3) 07/09/17 23:59 Albumin 3.6 g/dL (3.5-5.0) 07/09/17 23:59 Globulin 3.9 gm/dL (2.2-3.9) 07/09/17 23:59 Albumin/Globulin Ratio 0.9 (1.0-2.1) L 07/09/17 23:59 Urine Color Yellow (YELLOW) 07/09/17 23:55 Urine Clarity Hazy (Clear) 07/09/17 23:55 Urine pH 5.0 (5.0-8.0) 07/09/17 23:55 Ur Specific [place] 1.021 (1.003-1.030) 07/09/17 23:55 Urine Protein Negative mg/dL (NEGATIVE) 07/09/17 23:55 Urine Glucose (UA) Normal mg/dL (Normal) 07/09/17 23:55 Urine Ketones Trace mg/dL (NEGATIVE) 07/09/17 23:55 Urine Blood Negative (NEGATIVE) 07/09/17 23:55 Urine Nitrate Negative (NEGATIVE) 07/09/17 23:55 Urine Bilirubin Negative (NEGATIVE) 07/09/17 23:55 Urine Urobilinogen Normal mg/dL (0.2-1.0) 07/09/17 23:55 Ur Leukocyte Esterase 2+ Raymond/uL (Negative) H 07/09/17 23:55 Urine WBC (Auto) 64 /hpf (0-5) H 07/09/17 23:55 Urine RBC (Auto) 7 /hpf (0-3) H 07/09/17 23:55 Ur Squamous Epith Cells 7 /hpf (0-5) H 07/09/17 23:55 Urine Bacteria Few (<OCC) H 07/09/17 23:55 - Hospital Course Hospital Course: PT SEEN TODAY SITTING UP IN BED AND TOLERATING LUNCH WELL. PT DENIES ANY ACUTE DISTRESS. PLEASANT. PT STABLE TO D/C PT BACK TO [facility] TODAY. STILL PENDING URINE CULTURE RESULTS (SENT YESTERDAY PER CHART REVIEW) AND WILL BE F/U OP. PT WILL CONTINUE TAKING KEFLEX PO X5 DAYS AT [facility]. PT TO BE FOLLOWED BY , SW AWARE OF D/C. TO ARRANGE TRANSPORTATION FOR THIS AFTERNOON. NO FURTHER ORDERS. Discharge Plan - Discharge Medications Prescriptions: Cephalexin [cephalexin] 500 mg PO Q12 5 Days #10 cap - Follow Up Plan Condition: FAIR Disposition: REHAB FACILITY/REHAB UNIT Instructions: Urinary Tract Infection, Adult (DC), Vertebral Compression Fracture (DC), Preventing Falls Additional Instructions: -PLACE UNDER THE SERVICE OF DR. RUSSELL WHILE AT [facility]---CALL UPON ARRIVAL FOR FURTHER ADMITTING ORDERS. -CONTINUE MEDICATIONS PER THE MED REC FORM---CHANGES CAN BE MADE BY ATTENDING. -PER DR. RUSSELL, CONTINUE KEFLEX 500 MG PO Q12 FOR 5 DAYS (START ON 07/12/17 AND LAST DOSE TO BE GIVEN DURING THE EVENING OF 07/16/17) -FOR FURTHER ORDERS, CONTACT DR. RUSSELL'S OFFICE. Referrals: Rick Kuhn MD [Staff Provider] - Abram Russell MD [Primary Care Provider] -
== END 2017-07-11 18:51 ==
LOC: SUPCPDRO 22:36 → C.ER 22:36 → C.3T 07-10 00:55
PROVIDERS: ADMIT Internal Medicine; ATTEND Internal Medicine
DX: N39.0 Urinary tract infection, site not specified (principal); F02.81 Dementia in other diseases classified elsewhere, unspecified severity, with behavioral disturbance; R45.1 Restlessness and agitation; W19.XXXA Unspecified fall, initial encounter; Y93.9 Activity, unspecified; Y92.129 Unspecified place in nursing home as the place of occurrence of the external cause; R29.6 Repeated falls; E78.00 Pure hypercholesterolemia, unspecified; I10 Essential (primary) hypertension; E11.9 Type 2 diabetes mellitus without complications; K21.9 Gastro-esophageal reflux disease without esophagitis; Z79.899 Other long term (current) drug therapy; B96.20 Unspecified Escherichia coli [E. coli] as the cause of diseases classified elsewhere; G30.9 Alzheimer's disease, unspecified; R51 Headache; G24.01 Drug induced subacute dyskinesia; T43.505A Adverse effect of unspecified antipsychotics and neuroleptics, initial encounter; Z91.81 History of falling; G93.41 Metabolic encephalopathy; M85.88 Other specified disorders of bone density and structure, other site
CPT/HCPCS: 36415; 70450; 71045; 72170; 72192; 80048; 80053; 81001; 82550; 82948; 84484; 85025; 85610; 85730; 87086; 87181; 96365; 96366; 96367; 96372; 96375; 97162; 97530; 99285; G0378; G8978; G8979; J0696; J1650; J2060; J2543; J3486

== ENCOUNTER 2017-09-09 11:53 | Emergency (ER) | payer MEDICARE, OTHER ==
[2017-09-09 11:53] VITALS: BMI 21.6
[2017-09-09 12:52] LABS: ALB/GLOB RATIO 0.9 (1.0-2.1); ALBUMIN 3.5 g/dL (3.5-5.0); CALCIUM 9.1 mg/dl (8.6-10.4); GFR AFRICAN-AMERICAN > 60; GFR NON-AFRICAN AMERICAN > 60
[2017-09-09 12:53] LABS: ALT/SGPT 20 U/L (9-52); AST/SGOT 59 U/L (14-36); BASO % 0.3 % (0.0-2.0); BLOOD UREA NITROGEN 27 mg/dL (7-17); EOS % 1.3 % (0.0-4.0); HEMOGLOBIN 10.9 g/dL (11.0-16.0); LYMPH # 1.5 K/uL (1.0-4.3); LYMPH % 41.1 % (20.0-40.0); MEAN CELL VOLUME 94.2 fL (81.0-99.0); MEAN CORPUSCULAR HEMOGLOBIN 30.9 pg (27.0-31.0); MEAN CORPUSCULAR HGB CONC 32.8 g/dL (33.0-37.0); MEAN PLATELET VOLUME 9.7 fL (7.2-11.7); MONO # 0.4 K/uL (0.0-0.8); MONO % 11.8 % (0.0-10.0); NEUT # 1.7 K/uL (1.8-7.0); NEUT % 45.5 % (50.0-75.0); NRBC % 0.2 % (0.0-2.0); RBC 3.52 Mil/uL (3.80-5.20); WHITE BLOOD COUNT 3.7 K/uL (4.8-10.8)
--- NOTE | 2017-09-09 13:19 | RAD ---
PROCEDURE: CHEST RADIOGRAPH, 1 VIEW HISTORY: Shortness of breath COMPARISON: 07/09/2017. FINDINGS: LUNGS: The lungs are well inflated and clear. PLEURA: No pneumothorax or pleural fluid seen. CARDIOVASCULAR: The heart is normal in size. Atherosclerotic aortic arch calcifications are present. OSSEOUS STRUCTURES: No significant abnormalities. VISUALIZED UPPER ABDOMEN: Normal. OTHER FINDINGS: None. IMPRESSION: No active pulmonary disease.
[2017-09-09 13:36] LABS: SQUAMOUS EPITHIAL 1 /hpf (0-5); URINE BACTERIA RARE (<OCC); URINE BILIRUBIN NEGATIVE (NEGATIVE); URINE BLOOD NEGATIVE (NEGATIVE); URINE CLARITY Hazy (Clear); URINE COLOR Yellow (YELLOW); URINE GLUCOSE (UA) NORMAL (Normal); URINE LEUKOCYTE ESTERASE NEG Leu/uL (Negative); URINE PROTEIN NEGATIVE (NEGATIVE); URINE UROBILINOGEN NORMAL mg/dL (0.2-1.0)
--- NOTE | 2017-09-09 13:51 | C.PDOC ---
History Of Present Illness 66 year old female is brought to the ED by ambulance after being sent by [facility] for psychiatric evaluation. As per fdc, patient was acting very agitated this morning and tried to leave the facility. Patient' s PMD, Dr. Russell, was contacted and recommended for patient to be evaluated in the ED. Patient denies any complaints upon ED arrival. Additional history is limited secondary to language barrier. Time Seen by Provider: 09/09/17 12:10 Chief Complaint (Nursing): Psychiatric Evaluation History Per: Patient, EMS History/Exam Limitations: language barrier (Slovenian ) Onset/Duration Of Symptoms: Hrs Current Symptoms Are (Timing): Better Suicide/Self Injury Attempted (Context): None Associated Symptoms: denies: Suicidal Thoughts, Suicidal Plan Involuntary Hold By: None Recent travel outside of the [place]: No Additional History Per: Patient, EMS, Care Home Past Medical History Reviewed: Historical Data, Nursing Documentation, Vital Signs Vital Signs: Last Vital Signs Temp 98.7 F 09/09/17 16:07 Pulse 76 09/09/17 16:07 Resp 13 09/09/17 16:07 BP 154/66 H 09/09/17 16:07 Pulse Ox 100 09/09/17 16:07 - Medical History PMH: Arthritis (BACK, KNEE AND ANKLE PAIN R>L), Dementia, Fractures, HTN ( PER SON), Hypercholesterolemia, Seizures ( PER SON) Denies: Diabetes, Hepatitis, HIV, Chronic Kidney Disease, Sexually Transmitted Disease Surgical History: No Surg Hx - [facility] Procedures INTRODUCTION OF ANTI-INFLAM INTO SPINAL CANAL, PERC APPROACH (12/08/16) Family History: States: Unknown Family Hx - Social History Hx Alcohol Use: No Hx Substance Use: No - Immunization History Hx Tetanus Toxoid Vaccination: No Hx Influenza Vaccination: No Hx Pneumococcal Vaccination: No Review Of Systems Constitutional: Negative for: Fever Neurological: Positive for: Other (aggressive behavior) Psych: Positive for: Other (agitated behavior ) Physical Exam - Physical Exam Appears: Non-toxic, No Acute Distress, Other (calm, cooperative ) Skin: Normal Color, Warm, Dry Head: Atraumatic, Normacephalic Eye(s): bilateral: Normal Inspection, PERRL, EOMI Oral Mucosa: Moist Neck: Supple Chest: Symmetrical, No Deformity, No Tenderness Cardiovascular: Rhythm Regular, No Murmur Respiratory: Normal Breath Sounds, No Rales, No Rhonchi, No Wheezing Gastrointestinal/Abdominal: Normal Exam Extremity: Normal ROM, Capillary Refill (less than 2 seconds ) Neurological/Psych: Oriented x3, Normal Speech, Normal Cognition Gait: Unable To Assess ED Course And Treatment - Laboratory Results Result Diagrams: 09/09/17 12:30 09/09/17 12:30 Lab Interpretation: Normal O2 Sat by Pulse Oximetry: 98 - Radiology CXR: Interpreted by Me CXR Interpretation: Yes: No Acute Disease Progress Note: Bloodwork, urinalysis, CXR, and EKG ordered. All results are unremarkable. Case discussed with Dr. Russell, who states patient is stable to return to her fdc. On reassessment, patient is resting comfortably, showing no signs of distress, is speaking with ER nurses in a calm and cooperative manner, and is stable for discharge. Reassessment Condition: Improved - Physician Consult Information Physician Contacted: Abram Russell Outcome Of Conversation: discharge to [place] Disposition - Disposition Referrals: Abram Russell MD [Staff Provider] - Disposition: TRANSF TO SNF Disposition Time: 15:30 Condition: STABLE Additional Instructions: Follow up with Dr russell for further evaluation Return to ED if any increase symptoms Instructions: Dementia (Including Alzheimer Disease) Forms: [employer] (Serbian) - Clinical Impression Clinical Impression: Dementia, Agitation - PA / IRONING WORKER / Resident Statement MD/DO has reviewed & agrees with the documentation as recorded. - Scribe Statement The provider has reviewed the documentation as recorded by the Scribe (Aliza Castillo) All medical record entries made by the Scribe were at my direction and personally dictated by me. I have reviewed the chart and agree that the record accurately reflects my personal performance of the history, physical exam, medical decision making, and the department course for this patient. I have also personally directed, reviewed, and agree with the discharge instructions and disposition.
[2017-09-09 14:01] LABS: BARBITURATES, UR NEGATIVE (NEGATIVE); OPIATES, UR NEGATIVE (NEGATIVE); PHENCYCLIDINE, UR NEGATIVE (NEGATIVE)
[2017-09-09 14:23] LABS: BENZODIAZEPINES, UR POSITIVE (NEGATIVE)
[2017-09-09 16:09] VITALS: BP 154/66; PULSE 76; RESP 13; TEMP 98.7
[2017-09-09 16:17] VITALS: O2SAT 98
--- NOTE | 2017-09-10 13:54 | CARD ---
APPROVED REPORT EKG Measurement Heart [id number] [id number] [id number] <Conclusion> Normal sinus rhythm Normal ECG
== END 2017-09-09 16:07 ==
LOC: C.ER 11:53
DX: R45.1 Restlessness and agitation (principal); F03.90 Unspecified dementia, unspecified severity, without behavioral disturbance, psychotic disturbance, mood disturbance, and anxiety; E78.00 Pure hypercholesterolemia, unspecified; I10 Essential (primary) hypertension
CPT/HCPCS: 71045; 80053; 81001; 82948; 85025; 87086; 93005; 99285; G0480

== ENCOUNTER 2018-05-20 15:08 | Inpatient (IN) | payer MEDICARE, OTHER ==
[2018-05-20 15:09] VITALS: BMI 19.5
[2018-05-20] MEDS ORDERED: Sodium Chloride 0.9% 1,000 ML IV ONE (16:19)
--- NOTE | 2018-05-20 16:19 | C.PDOC ---
Time Seen by Provider: 05/20/18 15:10 Chief Complaint (Nursing): Lower Extremity Problem/Injury Past Medical History Vital Signs: Last Vital Signs Temp Pulse 76 05/20/18 15:35 Resp 20 05/20/18 15:35 BP 202/142 H 05/20/18 15:35 Pulse Ox 99 05/20/18 15:35 - Medical History PMH: Anxiety, Arthritis (BACK, KNEE AND ANKLE PAIN R>L), Dementia, Fractures, HTN ( PER SON), Hypercholesterolemia, Hyperlipidemia, Seizures ( PER SON) Denies: Diabetes, Hepatitis, HIV, Chronic Kidney Disease, Sexually Transmitted Disease - [facility] Procedures INTRODUCTION OF ANTI-INFLAM INTO SPINAL CANAL, PERC APPROACH (12/08/16) Family History: States: Unknown Family Hx - Social History Hx Alcohol Use: No Hx Substance Use: No - Immunization History Hx Tetanus Toxoid Vaccination: No Hx Influenza Vaccination: No Hx Pneumococcal Vaccination: No ED Course And Treatment O2 Sat by Pulse Oximetry: 99 Disposition - Disposition Forms: [employer] (Filipino)
--- NOTE | 2018-05-20 16:20 | C.PDOC ---
History Of Present Illness 67yo female with history of HTN, dementia, seizures, brought to ER for evaluation s/p fall. Full HPI and ROS limited due to patient's dementia. No reports of head injury or loss of consciousness due to fall. Patient at physical therapy where the fall occurred. Time Seen by Provider: 05/20/18 15:10 Chief Complaint (Nursing): Lower Extremity Problem/Injury History/Exam Limitations: clinical condition Additional History Per: Correction Past Medical History Reviewed: Historical Data, Nursing Documentation, Vital Signs Vital Signs: Last Vital Signs Temp Pulse 76 05/20/18 15:35 Resp 20 05/20/18 15:35 BP 202/142 H 05/20/18 15:35 Pulse Ox 99 05/20/18 15:35 - Medical History PMH: Anxiety, Arthritis (BACK, KNEE AND ANKLE PAIN R>L), Dementia, Fractures, HTN ( PER SON), Hypercholesterolemia, Hyperlipidemia, Seizures ( PER SON) Denies: Diabetes, Hepatitis, HIV, Chronic Kidney Disease, Sexually Transmitted Disease Surgical History: No Surg Hx - [facility] Procedures INTRODUCTION OF ANTI-INFLAM INTO SPINAL CANAL, PERC APPROACH (12/08/16) Family History: States: No Known Family Hx - Social History Hx Alcohol Use: No Hx Substance Use: No - Immunization History Hx Tetanus Toxoid Vaccination: No Hx Influenza Vaccination: No Hx Pneumococcal Vaccination: No Review Of Systems Review Of Systems: ROS cannot be obtained secondary to pt's inabilty to answer questions. (dementia) Musculoskeletal: Positive for: Other (left hip pain) Physical Exam - Physical Exam Appears: Non-toxic, Chronically Ill Skin: Normal Color Head: Atraumatic, Normacephalic Neck: Normal ROM, No Midline Cervical Tenderness, No Paracervical Tenderness, Supple Chest: Symmetrical Cardiovascular: Rhythm Regular Respiratory: Normal Breath Sounds Gastrointestinal/Abdominal: Normal Exam, Soft Extremity: No Deformity, Other (eccymosis noted to left knee) Extremity: Left: Limited ROM To Joint (hip; pain with external rotation) Pulses: Left Dorsalis Pedis: Normal, Right Dorsalis Pedis: Normal Neurological/Psych: Normal Motor, Normal Sensation ED Course And Treatment - Laboratory Results Result Diagrams: 05/20/18 16:27 05/20/18 16:27 ECG: Interpreted By Me, Viewed By Me ECG Rhythm: Sinus Rhythm ECG Interpretation: Normal Rate From EC O2 Sat by Pulse Oximetry: 99 Medical Decision Making Medical Decision Makinyo female brought to ER s/p fall while at physical therapy; left hip pain Plan: -- EKG -- XR Hips -- Labs 1754 CT Pelvis ordered to r/o fracture [address] Russell and he accepts patient for admission. Consult placed for Sheila (Ortho oncall) at 1800. Disposition - Disposition Disposition: HOSPITALIZED Disposition Time: 18:00 Condition: STABLE - Clinical Impression Clinical Impression: Hip fracture - PA / GAS INSPECTOR / Resident Statement MD/DO has reviewed & agrees with the documentation as recorded. - Scribe Statement The provider has reviewed the documentation as recorded by the Francisco Javier Canas Provider Attestation: All medical record entries made by the Francisco Javier were at my direction and personally dictated by me. I have reviewed the chart and agree that the record accurately reflects my personal performance of the history, physical exam, medical decision making, and the department course for this patient. I have also personally directed, reviewed, and agree with the discharge instructions and disposition.
[2018-05-20] MEDS ORDERED: Labetalol 25mg/5ml Syringe IV STA (16:24)
[2018-05-20 16:32] LABS: BASO % 0.1 % (0.0-2.0); EOS % 0.4 % (0.0-4.0); HEMOGLOBIN 10.6 g/dL (11.0-16.0); LYMPH # 1.1 K/uL (1.0-4.3); MEAN CELL VOLUME 95.4 fL (81.0-99.0); MEAN CORPUSCULAR HEMOGLOBIN 30.6 pg (27.0-31.0); MEAN CORPUSCULAR HGB CONC 32.1 g/dL (33.0-37.0); MEAN PLATELET VOLUME 8.9 fL (7.2-11.7); MONO # 0.5 K/uL (0.0-0.8); MONO % 7.9 % (0.0-10.0); NEUT # 5.2 K/uL (1.8-7.0); NEUT % 75.6 % (50.0-75.0); RBC 3.47 Mil/uL (3.80-5.20); RED CELL DISTRIBUTION WIDTH 13.6 % (11.5-14.5); WHITE BLOOD COUNT 6.8 K/uL (4.8-10.8)
[2018-05-20 16:43] LABS: ALB/GLOB RATIO 1.1 (1.0-2.1); ALBUMIN 3.9 g/dL (3.5-5.0); ALT/SGPT 27 U/L (9-52); AST/SGOT 38 U/L (14-36); BLOOD UREA NITROGEN 28 mg/dL (7-17); CALCIUM 9.1 mg/dl (8.6-10.4); GFR NON-AFRICAN AMERICAN > 60; INR 1.1; PROTHROMBIN TIME 11.5 SECONDS (9.7-12.2)
[2018-05-20] MEDS ORDERED: Labetalol 5mg/ml (4ml) ONE (16:52)
[2018-05-20] MEDS ORDERED: Sodium Chloride 0.9% 1,000 ML ONE (16:52)
--- NOTE | 2018-05-20 18:15 | RAD ---
PROCEDURE: Left Hip X-ray Radiographs. HISTORY: hip injury, COMPARISON: None. FINDINGS: BONES: Left proximal femur: Comminuted inter trochanteric fracture JOINTS: Preservation of femoral acetabular relationship. SOFT TISSUES: Normal. OTHER FINDINGS: Satisfactory position of right MAXIMILIANO IMPRESSION: Acute and comminuted inter trochanteric fracture left femur. Mild varus deformity noted.
--- NOTE | 2018-05-20 18:45 | CT ---
Date of service: 05/20/2018 PROCEDURE: CT Pelvis without contrast HISTORY: possible hip fracture COMPARISON: I feel lot times the stable TECHNIQUE: Contiguous axial images of the pelvis . No intravenous or oral contrast given. Coronal and sagittal reformats generated. Radiation dose: Total exam DLP = 238.48 mGy-cm. This CT exam was performed using one or more of the following dose reduction techniques: Automated exposure control, adjustment of the mA and/or kV according to patient size, and/or use of iterative reconstruction technique. FINDINGS: BLADDER: Unremarkable. No mass. REPRODUCTIVE ORGANS: Unremarkable. VISUALIZED BOWEL: Unremarkable. PERITONEUM: Unremarkable, as visualized. No free fluid. No free air. LYMPH NODES: Unremarkable. No enlarged lymph nodes. BONES: Confirmation of proximal left femoral fracture. Comminuted inter trochanteric fracture without appreciable angulation, impaction or distraction. Preservation of left femoral acetabular relationship. No pelvic ring abnormalities detected. Stable position of right MAXIMILIANO. VASCULATURE: No aortic atherosclerotic calcification or mural plaque present. OTHER FINDINGS: Stable cystic mass right hemipelvis 6.7 x 9.5 cm stable smaller cystic mass left hemipelvis 2.4 x 3.1 cm. IMPRESSION: Comminuted intertrochanteric fracture proximal left femur as described above. Stable cystic pelvic masses.
--- NOTE | 2018-05-20 21:04 | CP.PCM.HP ---
Present on Admission - Present on Admission Any Indicators Present on Admission: No Past Patient History - Infectious Disease Hx of Infectious Diseases: None - Past Medical History & Family History Past Medical History?: Yes - Past Social History Smoking Status: Unknown If Ever Smoked - CARDIAC Hx Hypercholesterolemia: Yes Hx Hypertension: Yes ( PER SON) - PULMONARY Hx Tuberculosis: No - NEUROLOGICAL Hx Dementia: Yes Hx Seizures: Yes ( PER SON) - HEENT Hx HEENT Problems: No - RENAL Hx Chronic Kidney Disease: No - ENDOCRINE/METABOLIC Hx Endocrine Disorders: Yes Hx Diabetes Mellitus Type 2: Yes - HEMATOLOGICAL/ONCOLOGICAL Hx Human Immunodeficiency Virus (HIV): No - INTEGUMENTARY Hx Dermatological Problems: No - MUSCULOSKELETAL/RHEUMATOLOGICAL Hx Arthritis: Yes (BACK, KNEE AND ANKLE PAIN R>L) Hx Fractures: Yes - GASTROINTESTINAL Hx Gastrointestinal Disorders: Yes Hx Gastroesophageal Reflux: Yes - GENITOURINARY/GYNECOLOGICAL Hx Sexually Transmitted Disorders: No - PSYCHIATRIC Hx Anxiety: Yes Hx Substance Use: No - SURGICAL HISTORY Hx Surgeries: Yes Hx Tubal Ligation: Yes - ANESTHESIA Hx Anesthesia: Yes Hx Anesthesia Reactions: No Hx Malignant Hyperthermia: No Meds Allergies/Adverse Reactions: Allergies Allergy/AdvReac Type Severity Reaction Status Date / Time No Known Allergies Allergy Verified 04/03/18 00:58 Results - Vital Signs Recent Vital Signs: Last Vital Signs Temp 97.3 F L 05/20/18 20:50 Pulse 76 05/20/18 20:50 Resp 20 05/20/18 20:50 BP 169/78 H 05/20/18 20:50 Pulse Ox 98 05/20/18 20:50 - Labs Result Diagrams: 05/20/18 16:27 05/20/18 16:27 Labs: Laboratory Results - last 24 hr 05/20/18 05/20/18 05/20/18 16:27 16:27 16:27 WBC 6.8 RBC 3.47 L Hgb 10.6 L Hct 33.1 L MCV 95.4 MCH 30.6 MCHC 32.1 L RDW 13.6 Plt Count 146 MPV 8.9 Neut % (Auto) 75.6 H Lymph % (Auto) 16.0 L [place] % (Auto) 7.9 Eos % (Auto) 0.4 Baso % (Auto) 0.1 Neut # (Auto) 5.2 Lymph # (Auto) 1.1 [place] # (Auto) 0.5 Eos # (Auto) 0.0 Baso # (Auto) 0.0 PT 11.5 INR 1.1 APTT 28 Sodium 139 Potassium 4.5 Chloride 106 Carbon Dioxide 26 Anion Gap 11 BUN 28 H Creatinine 0.9 Est GFR ( Amer) > 60 Est GFR (Non-Af Amer) > 60 Random Glucose 108 H D Calcium 9.1 Total Bilirubin 0.3 AST 38 H D ALT 27 Alkaline Phosphatase 85 Total Protein 7.4 Albumin 3.9 Globulin 3.5 Albumin/Globulin Ratio 1.1
[2018-05-20] MEDS: (Novolin R) Insulin Human Regular 100 units/ml vial SC SCH (22:32)
[2018-05-20 23:17] LABS: SQUAMOUS EPITHIAL 2 /hpf (0-5); URINE BACTERIA RARE (<OCC); URINE BILIRUBIN NEGATIVE (NEGATIVE); URINE BLOOD NEGATIVE (NEGATIVE); URINE CLARITY Clear (Clear); URINE COLOR Yellow (YELLOW); URINE GLUCOSE (UA) NORMAL (Normal); URINE LEUKOCYTE ESTERASE NEG Leu/uL (Negative); URINE PROTEIN NEGATIVE (NEGATIVE); URINE UROBILINOGEN NORMAL mg/dL (0.2-1.0)
--- NOTE | 2018-05-21 05:05 | HP ---
CHIEF COMPLAINT: Fall. HISTORY OF PRESENT ILLNESS: This is a 67-year-old female, well known to me with a history of prior right hip fracture with ORIF. She also was recently treated at [facility] back in 03/2018 for fracture of right humerus. The patient is a known case of bipolar disorder. She gets agitated a lot. The patient has extensive history of falls, lot of psych treatments, lot of hospitalizations in psychiatric unit with no responds. She is currently being followed by a psychiatrist in the alf. She is a long-term resident of [facility], and today she had a fall and there is left hip pain. The patient has been referred to emergency room. The patient is right now delusional. She is not able to answer questions. The patient does not have any tremor. There is no history of any skin changes, bruises, head injury and no other trauma. The patient upon repeated questioning complained of pain in the hip. There is no history of fever, chills or rigor. There is no history of polyuria, polydipsia or polyphagia. No history of hematuria or pyuria. ALLERGIES: UNKNOWN ALLERGIES. CURRENT MEDICATIONS: At alf, she is on Depakote, Florastor, Seroquel, Toprol, Namenda, milk of magnesia, losartan, Novolin R, ibuprofen, Lipitor, Tylenol, Xanax. SOCIAL HISTORY: Nonsmoker, non-ETOH user. PAST MEDICAL HISTORY: Bipolar, psychosis, diabetes, hypertension, hyperlipidemia, depression, dementia and history of right hip and right shoulder fracture. PHYSICAL EXAMINATION: GENERAL: An elderly female. She is not agitated. She is calm. She is not restless. VITAL SIGNS: Blood pressure 169/78, pulse rate 76, respiratory rate 20, temperature 97.3. SKIN: Senile turgor. HEENT: Atraumatic and normocephalic. Negative pallor. Negative jaundice. Extraocular movements are intact. NECK: Supple. No JVD. No lymph node. No thyromegaly. No carotid bruits. CHEST WALL: Bilateral symmetrical expansion. No tenderness. No deformity. LUNGS: Clear. No rales. No rhonchi. CARDIOVASCULAR SYSTEM: PMI in the fifth intercostal space. S1 and S2, regular. No heave. No thrill. ABDOMEN: Soft, nontender. Bowel sounds are positive. EXTREMITIES: Unable to move left hip. Rest of the extremities have normal range of movement. CENTRAL NERVOUS SYSTEM: The patient is awake and alert. She is delusional. She is not answering questions. Moving all extremities except left. ASSESSMENT: 1. Left hip fracture. 2. Hypertension. 3. Type 2 diabetes. 4. History of recurrent fall. 5. Bipolar psychosis. PLAN: Admit. Detailed orders are written. The patient needs orthopedics eval. She will be monitored closely. She will be followed up in the hospital. Abram Russell MD
[2018-05-21] MEDS: (Novolin R) Insulin Human Regular 100 units/ml vial SC SCH ×4 (08:07→21:26)
--- NOTE | 2018-05-21 08:08 | CP.PCM.CON ---
History of Present Illness - History of Present Illness History of Present Illness: Orthopedic consultation Dr. Cheema 67F complains of left hip pain after fall at [facility] where she is resident. She is also complaining of back pain even more than hip pain at this time. She says she had lots of broken bones before. She is refusing bucks traction per RN. Denies headache, CP/SOB/dizziness/numbness. Patient is poor historian Review of Systems - Review of Systems Systems not reviewed;Unavailable: Dementia All systems: reviewed and no additional remarkable complaints except Past Patient History - Infectious Disease Hx of Infectious Diseases: None - Past Medical History & Family History Past Medical History?: Yes Past Family History: Reviewed and not pertinent - Past Social History Smoking Status: Unknown If Ever Smoked - CARDIAC Hx Cardiac Disorders: Yes Hx Hypercholesterolemia: Yes Hx Hypertension: Yes ( PER SON) - PULMONARY Hx Respiratory Disorders: No Hx Tuberculosis: No - NEUROLOGICAL Hx Neurological Disorder: Yes Hx Dementia: Yes Hx Seizures: Yes ( PER SON) - HEENT Hx HEENT Problems: No - RENAL Hx Chronic Kidney Disease: No - ENDOCRINE/METABOLIC Hx Endocrine Disorders: Yes Hx Diabetes Mellitus Type 2: Yes - HEMATOLOGICAL/ONCOLOGICAL Hx Blood Disorders: No Hx Human Immunodeficiency Virus (HIV): No - INTEGUMENTARY Hx Dermatological Problems: No - MUSCULOSKELETAL/RHEUMATOLOGICAL Hx Musculoskeletal Disorders: Yes Hx Arthritis: Yes (BACK, KNEE AND ANKLE PAIN R>L) Hx Falls: Yes Hx Fractures: Yes - GASTROINTESTINAL Hx Gastrointestinal Disorders: Yes Hx Gastroesophageal Reflux: Yes - GENITOURINARY/GYNECOLOGICAL Hx Genitourinary Disorders: No Hx Sexually Transmitted Disorders: No - PSYCHIATRIC Hx Psychophysiologic Disorder: Yes Hx Anxiety: Yes Hx Substance Use: No - SURGICAL HISTORY Hx Surgeries: Yes Hx Tubal Ligation: Yes - ANESTHESIA Hx Anesthesia: Yes Hx Anesthesia Reactions: No Hx Malignant Hyperthermia: No Meds Allergies/Adverse Reactions: Allergies Allergy/AdvReac Type Severity Reaction Status Date / Time No Known Allergies Allergy Verified 04/03/18 00:58 - Medications Medications: Current Medications Acetaminophen (Tylenol 325mg Tab) 650 mg PO Q6 PRN PRN Reason: Pain, moderate (4-7) Enoxaparin Sodium (Lovenox) 30 mg SC DAILY [facility] Insulin Human Regular (Novolin R) 0 unit SC [facility]; Protocol Last Admin: 05/20/18 22:32 Dose: Not Given Morphine Sulfate (Morphine) 1 mg IVP Q4 PRN PRN Reason: Pain, severe (8-10) Last Admin: 05/21/18 08:03 Dose: 1 mg Physical Exam - Constitutional Appears: Well, No Acute Distress - Head Exam Head Exam: ATRAUMATIC - Neck Exam Neck exam: Positive for: Full Rom, Normal Inspection - Respiratory Exam Respiratory Exam: NORMAL BREATHING PATTERN - Cardiovascular Exam Additional comments: +DP/PT pulses BLE - Expanded Lower Extremities Exam Left Hip exam: tenderness (pain with attempts at ROM of left hip, sensation appears intact, but difficult to assess as patient requires repeated prompting to follow commands) Ankle exam: FULL ROM, NORMAL INSPECTION - Neurological Exam Neurological exam: Alert - Psychiatric Exam Psychiatric exam: Normal Affect - Skin Skin Exam: Dry, Intact, Normal Color, Warm Additional comments: small bruise to left knee, non tender Results - Vital Signs Recent Vital Signs: Last Vital Signs Temp 97.3 F L 05/20/18 20:50 Pulse 76 05/20/18 20:50 Resp 20 05/20/18 20:50 BP 169/78 H 05/20/18 20:50 Pulse Ox 98 05/20/18 20:50 - Labs Result Diagrams: 05/20/18 16:27 05/20/18 16:27 Labs: Laboratory Results - last 24 hr 05/20/18 05/20/18 05/20/18 16:27 16:27 16:27 WBC 6.8 RBC 3.47 L Hgb 10.6 L Hct 33.1 L MCV 95.4 MCH 30.6 MCHC 32.1 L RDW 13.6 Plt Count 146 MPV 8.9 Neut % (Auto) 75.6 H Lymph % (Auto) 16.0 L [place] % (Auto) 7.9 Eos % (Auto) 0.4 Baso % (Auto) 0.1 Neut # (Auto) 5.2 Lymph # (Auto) 1.1 [place] # (Auto) 0.5 Eos # (Auto) 0.0 Baso # (Auto) 0.0 PT 11.5 INR 1.1 APTT 28 Sodium 139 Potassium 4.5 Chloride 106 Carbon Dioxide 26 Anion Gap 11 BUN 28 H Creatinine 0.9 Est GFR ( Amer) > 60 Est GFR (Non-Af Amer) > 60 POC Glucose (mg/dL) Random Glucose 108 H D Calcium 9.1 Total Bilirubin 0.3 AST 38 H D ALT 27 Alkaline Phosphatase 85 Total Protein 7.4 Albumin 3.9 Globulin 3.5 Albumin/Globulin Ratio 1.1 Urine Color Urine Clarity Urine pH Ur Specific [place] Urine Protein Urine Glucose (UA) Urine Ketones Urine Blood Urine Nitrate Urine Bilirubin Urine Urobilinogen Ur Leukocyte Esterase Urine WBC (Auto) Urine RBC (Auto) Ur Squamous Epith Cells Urine Bacteria 05/20/18 05/20/18 05/21/18 21:09 23:00 06:32 WBC RBC Hgb Hct MCV MCH MCHC RDW Plt Count MPV Neut % (Auto) Lymph % (Auto) [place] % (Auto) Eos % (Auto) Baso % (Auto) Neut # (Auto) Lymph # (Auto) [place] # (Auto) Eos # (Auto) Baso # (Auto) PT INR APTT Sodium Potassium Chloride Carbon Dioxide Anion Gap BUN Creatinine Est GFR ( Amer) Est GFR (Non-Af Amer) POC Glucose (mg/dL) 192 H 120 H Random Glucose Calcium Total Bilirubin AST ALT Alkaline Phosphatase Total Protein Albumin Globulin Albumin/Globulin Ratio Urine Color Yellow Urine Clarity Clear Urine pH 6.0 Ur Specific [place] 1.018 Urine Protein Negative Urine Glucose (UA) Normal Urine Ketones Trace Urine Blood Negative Urine Nitrate Negative Urine Bilirubin Negative Urine Urobilinogen Normal Ur Leukocyte Esterase Neg Urine WBC (Auto) 1 Urine RBC (Auto) 3 Ur Squamous Epith Cells 2 Urine Bacteria Rare - EKG Data EKG comments: Patient Name / ID : KINGSLEY BROWN / [id number] Exam Date : 12/07/2016 21:55:20 ( Approved ) Study Comment : Sex / Age : F / 66Y Creator : MIAN PENALOZA MD Dictator : Reclamation Kettle Tender : Sewage Plant Supervisor : MIAN PENALOZA MD Approver2 : Report Date : 12/07/2016 22:52:00 My Comment : [facility] Division of Radiology [address] [place], [place] [id number] Tel. no. Patient Name: STEPHANIE KNOX Pt. Address: [address] [place] [address] Rec #: [id number] [place] [address]: Kailee Whipple DO Pt SON Order Location: [facility] : 1950 Female Age: 66 Order #: [id number] Reason for exam: low back pain s/p fall, r/o fx CT Scan LUMBAR SPINE W/O CONTRAST Exam Date: 12/07/16 This imaging exam was performed at [facility] EXAM: CT Lumbar Spine Without Intravenous Contrast CLINICAL HISTORY: 66 years old, female; Pain; Low back pain; Additional info: Low back pain S/P fall, R/O FX TECHNIQUE: Axial computed tomography images of the lumbar spine without intravenous contrast. All CT scans at this facility use one or more dose reduction techniques, viz.: automated exposure control; ma/kV adjustment per patient size (including targeted exams where dose is matched to indication; i.e. head); or iterative reconstruction technique. Coronal and sagittal reformatted images were created and reviewed. COMPARISON: No relevant prior studies available. FINDINGS: Vertebrae: Mild compression deformity inferior endplate L3 vertebral body, likely acute or subacute. Moderate to severe chronic compression deformity L2 vertebral body. Moderate chronic compression deformity L1 vertebral body. Mild chronic compression deformity T11 vertebral body. Mild to moderate chronic biconcave deformities T12, L4, L5 vertebral bodies. Discs/spinal canal/neural foramina: Mild degenerative changes of spine. Mild central canal stenosis at L2, L4 levels. Soft tissues: Unremarkable. Reproductive: 7.9 x 7.1 cm hypodense lesion within RIGHT adnexal region. Vasculature: Atherosclerotic disease of visualized arteries. IMPRESSION: 1. L3 compression fracture, acute or subacute. 2. Adnexal lesion, indeterminate. Suggest MRI or surgical evaluation. 3. Incidental/non-acute findings are described above. Dictated By: Mian Penaloza MD Dictated Date/Time: 12/07/162251 Signed By: Mian Penaloza MD Date Signed: 12/07/162251 Transcribed By: [facility] Transcribe Date/Time: 12/07/162251 [facility]/[place] - Impressions Impression: Accession No. : [id number] Patient Name / ID : KINGSLEY BROWN / [id number] Exam Date : 05/20/2018 18:15:54 ( Approved ) Study Comment : Sex / Age : F / 67Y Creator : Pablito Ballesteros MD Dictator : Pablito Ballesteros MD Reclamation Kettle Tender : Sewage Plant Supervisor : Pablito Ballesteros MD Approver2 : Report Date : 05/20/2018 18:41:31 My Comment : Date of service: 05/20/2018 PROCEDURE: CT Pelvis without contrast HISTORY: possible hip fracture COMPARISON: I feel lot times the stable TECHNIQUE: Contiguous axial images of the pelvis . No intravenous or oral contrast given. Coronal and sagittal reformats generated. Radiation dose: Total exam DLP = 238.48 mGy-cm. This CT exam was performed using one or more of the following dose reduction techniques: Automated exposure control, adjustment of the mA and/or kV according to patient size, and/or use of iterative reconstruction technique. FINDINGS: BLADDER: Unremarkable. No mass. REPRODUCTIVE ORGANS: Unremarkable. VISUALIZED BOWEL: Unremarkable. PERITONEUM: Unremarkable, as visualized. No free fluid. No free air. LYMPH NODES: Unremarkable. No enlarged lymph nodes. BONES: Confirmation of proximal left femoral fracture. Comminuted inter trochanteric fracture without appreciable angulation, impaction or distraction. Preservation of left femoral acetabular relationship. No pelvic ring abnormalities detected. Stable position of right MAXIMILIANO. VASCULATURE: No aortic atherosclerotic calcification or mural plaque present. OTHER FINDINGS: Stable cystic mass right hemipelvis 6.7 x 9.5 cm stable smaller cystic mass left hemipelvis 2.4 x 3.1 cm. IMPRESSION: Comminuted intertrochanteric fracture proximal left femur as described above. Stable cystic pelvic masses. Assessment & Plan (1) Fracture, intertrochanteric, left femur Assessment and Plan: Plan for ORIF when medically optimized will discuss with next of kin plan for OR n 2/4 if optimized VTE proph lovenox order noted, will hold after thursday dose for OR thursday bucks traction if tolerated check vitamin D repeat labs, anemia noted, T&C prior to OR d/w Dr. cheema, agrees with above son phone Hugo Knox [phone] called, no answer, LM Status: Acute (2) Low back pain Assessment and Plan: xrays and CT lumbar spine patient with prior compression fractures, will compare [facility] [id number] Status: Acute
[2018-05-21] MEDS: Enoxaparin 30 mg Syringe SC SCH (09:27)
[2018-05-21] MEDS: Metoprolol Succinate 50 mg XL Tab PO SCH (09:36)
--- NOTE | 2018-05-21 12:22 | CT ---
Date of service: 05/21/2018 PROCEDURE: CT of the left hip without contrast HISTORY: left hip FX COMPARISON: Comparison is made to the previous x-ray of the left hip and pelvis dated 05/20/2018 TECHNIQUE: Axial and reformatted coronal and sagittal CT images of the left hip were obtained without contrast administration. FINDINGS: There is comminuted large and impacted fracture at the left intertrochanteric region associated with displaced bony fragments. The left femoral neck is impacted inside the proximal left femoral shaft by approximately 18 millimeter. Slightly displaced greater trochanteric process noted. No evidence of dislocation at the left hip. Soft tissue swelling noted around the fracture. No evidence of drainable fluid collection or large hematoma. Arthritic degenerative changes noted at the pubic symphysis. IMPRESSION: Acute comminuted and impacted left femoral intertrochanteric fracture as discussed above.
--- NOTE | 2018-05-21 12:38 | CP.PCM.PN ---
Subjective - Date & Time of Evaluation Date of Evaluation: 05/21/18 Time of Evaluation: 11:00 - Subjective Subjective: dictated Objective - Vital Signs/Intake and Output Vital Signs (last 24 hours): Temp Pulse Resp BP Pulse Ox 97.3 F L 76 20 169/78 H 98 05/20/18 20:50 05/20/18 20:50 05/20/18 20:50 05/20/18 20:50 05/20/18 20:50 - Medications Medications: Current Medications Acetaminophen (Tylenol 325mg Tab) 650 mg PO Q6 PRN PRN Reason: Pain, moderate (4-7) Acetaminophen (Tylenol 325mg Tab) 650 mg PO Q6 PRN PRN Reason: Fever >100.4 F Alprazolam (Xanax) 1 mg PO Q8 PRN PRN Reason: Anxiety Last Admin: 05/21/18 09:27 Dose: 1 mg Enoxaparin Sodium (Lovenox) 30 mg SC DAILY [facility] Last Admin: 05/21/18 09:27 Dose: 30 mg Folic Acid (Folic Acid) 1 mg PO DAILY [facility] Last Admin: 05/21/18 09:35 Dose: 1 mg Insulin Human Regular (Novolin R) 0 unit SC [facility]; Protocol Last Admin: 05/21/18 12:02 Dose: Not Given Losartan Potassium (Cozaar) 100 mg PO DAILY [facility] Last Admin: 05/21/18 09:35 Dose: 100 mg Memantine (Namenda) 10 mg PO BID [facility] Last Admin: 05/21/18 09:36 Dose: 10 mg Metoprolol Succinate (Toprol Xl) 50 mg PO DAILY [facility] Last Admin: 05/21/18 09:36 Dose: 50 mg Morphine Sulfate (Morphine) 1 mg IVP Q4 PRN PRN Reason: Pain, severe (8-10) Last Admin: 05/21/18 11:56 Dose: 1 mg Quetiapine Fumarate (Seroquel) 25 mg PO DAILY [facility] Last Admin: 05/21/18 09:36 Dose: 25 mg Rosuvastatin Calcium (Crestor) 10 mg PO [facility] Valproate Sodium (Depakene Cap) 250 mg PO TIDCC [facility] - Labs Labs: 05/20/18 16:27 05/20/18 16:27 PT 11.5 SECONDS (9.7-12.2) 05/20/18 16:27 INR 1.1 05/20/18 16:27 APTT 28 SECONDS (21-34) 05/20/18 16:27
--- NOTE | 2018-05-21 13:07 | RAD ---
Date of service: 05/21/2018 PROCEDURE: Radiographs of the Lumbar Spine. HISTORY: fall, LBP COMPARISON: No prior. FINDINGS: BONES: Compression deformities of the L1 and L2 vertebral bodies unchanged from CT of 12/07/2016. No new fracture identified. There is also compression deformity of the T11 vertebra, increased from prior CT examination. Nevertheless age indeterminate. DISC SPACES: Unremarkable. OTHER FINDINGS: None. IMPRESSION: Old compression deformities L1 and L2 vertebra. T11 compression deformity, age indeterminate.
--- NOTE | 2018-05-21 13:26 | CT ---
Date of service: 05/21/2018 PROCEDURE: CT Lumbar Spine without contrast HISTORY: fall, LBP COMPARISON: Comparison is made to the previous study dated 12/07/2016 TECHNIQUE: Axial computed tomography images were obtained of the lumbar spine without the use of intravenous contrast. Coronal and sagittal reformatted images were created and reviewed. Radiation dose: Total exam DLP = 2134.31 mGy-cm. This CT exam was performed using one or more of the following dose reduction techniques: Automated exposure control, adjustment of the mA and/or kV according to patient size, and/or use of iterative reconstruction technique. FINDINGS: VERTEBRAE: There is severe compression deformity of L2 and moderate to severe compression deformity of L1. Moderate compression deformity of L4 and L5 is also noted. Findings are slightly worse compared to the prior exam. DISCS/SPINAL CANAL/NEURAL FORAMINA: L1-2: There is a small bony retropulsion and bulging disc which resulting in mild spinal stenosis. L2-3: Small bulging disc resulting in mild spinal stenosis. L3-4: Small to moderate-size bulging disc which resulting in mild to moderate spinal stenosis. L4-5: Posterior osteophyte bulging disc associated with posterior ligament and facet joint hypertrophy which resulting in moderate spinal stenosis. L5-S1: Posterior osteophyte bulging disc associated with posterior ligament and facet joint hypertrophy which resulting in mild spinal stenosis. PARASPINAL SOFT TISSUES: There is large cystic lesion in the right pelvis of uncertain etiology. The right kidney is small in size. There is diffuse atherosclerotic calcification in the abdominal aorta and iliac arteries. There is possible calcification versus stone in the bladder. OTHER FINDINGS: Moderate compression deformity of T11 and mild to moderate compression deformity of T9 and T10 are also noted. IMPRESSION: Limited study due to the patient condition. Interval slight worsening of multilevel compression deformities at the lumbar spine more prominent at L2. Multilevel posterior osteophyte bulging disc associated with posterior ligament and facet joint hypertrophy which resulting in spinal stenosis. Large cystic lesions in the right aspect of the pelvis of uncertain etiology. Further evaluation by ultrasound is recommended
[2018-05-21 14:13] LABS: HEMOGLOBIN 9.6 g/dL (11.0-16.0); MEAN CELL VOLUME 95.7 fL (81.0-99.0); MEAN CORPUSCULAR HEMOGLOBIN 30.8 pg (27.0-31.0); MEAN CORPUSCULAR HGB CONC 32.2 g/dL (33.0-37.0); MEAN PLATELET VOLUME 9.4 fL (7.2-11.7); RBC 3.1 Mil/uL (3.80-5.20); RED CELL DISTRIBUTION WIDTH 13.8 % (11.5-14.5); WHITE BLOOD COUNT 5.9 K/uL (4.8-10.8)
--- NOTE | 2018-05-21 16:44 | PN ---
DATE: 05/21/2018 SUBJECTIVE: Flores Knox has left hip pain and the patient has been given pain medication, as she is still delusional, nonverbal. She mumbles words without any clear meaning. No fever, no chills. The patient has been seen by Orthopedics and plan of care is in progress, and we are in the process she will get cardiology consult. PHYSICAL EXAMINATION: VITAL SIGNS: Blood pressure 169/78, pulse 76, respiratory rate 20, temperature 97.3. LUNGS: Clear. CVS: S1, S2. Regular. ABDOMEN: Soft. ASSESSMENT: 1. Left hip fracture. 2. Depression and psychosis. 3. Hypertension. 4. Type 2 diabetes. PLAN: Continue current medications. Monitor the patient. Abram Russell MD
--- NOTE | 2018-05-21 18:59 | CP.PCM.CON ---
History of Present Illness - History of Present Illness History of Present Illness: CC: Pre Op cardiac risk assessment 67F complains of left hip pain after fall at [place] where she is resident. She is also complaining of back pain even more than hip pain at this time. She says she had lots of broken bones before. She is refusing bucks traction per RN. Denies headache, CP/SOB/dizziness/numbness. Patient is poor historian Review of Systems - Review of Systems Systems not reviewed;Unavailable: Dementia All systems: reviewed and no additional remarkable complaints except Physical Exam - Constitutional Appears: Well, No Acute Distress - Head Exam Head Exam: ATRAUMATIC - Neck Exam Neck exam: Positive for: Full Rom, Normal Inspection - Respiratory Exam Respiratory Exam: NORMAL BREATHING PATTERN - Cardiovascular Exam Additional comments: +DP/PT pulses BLE - Expanded Lower Extremities Exam Left Hip exam: tenderness (pain with attempts at ROM of left hip, sensation appears intact, but difficult to assess as patient requires repeated prompting to follow commands) Ankle exam: FULL ROM, NORMAL INSPECTION - Neurological Exam Neurological exam: Alert - Psychiatric Exam Psychiatric exam: Normal Affect - Skin Skin Exam: Dry, Intact, Normal Color, Warm Additional comments: small bruise to left knee, non tender Past Patient History - Infectious Disease Hx of Infectious Diseases: None - Past Medical History & Family History Past Medical History?: Yes Past Family History: Reviewed and not pertinent - Past Social History Smoking Status: Unknown If Ever Smoked - CARDIAC Hx Cardiac Disorders: Yes Hx Hypercholesterolemia: Yes Hx Hypertension: Yes ( PER SON) - PULMONARY Hx Respiratory Disorders: No Hx Tuberculosis: No - NEUROLOGICAL Hx Neurological Disorder: Yes Hx Dementia: Yes Hx Seizures: Yes ( PER SON) - HEENT Hx HEENT Problems: No - RENAL Hx Chronic Kidney Disease: No - ENDOCRINE/METABOLIC Hx Endocrine Disorders: Yes Hx Diabetes Mellitus Type 2: Yes - HEMATOLOGICAL/ONCOLOGICAL Hx Blood Disorders: No Hx Human Immunodeficiency Virus (HIV): No - INTEGUMENTARY Hx Dermatological Problems: No - MUSCULOSKELETAL/RHEUMATOLOGICAL Hx Musculoskeletal Disorders: Yes Hx Arthritis: Yes (BACK, KNEE AND ANKLE PAIN R>L) Hx Falls: Yes Hx Fractures: Yes - GASTROINTESTINAL Hx Gastrointestinal Disorders: Yes Hx Gastroesophageal Reflux: Yes - GENITOURINARY/GYNECOLOGICAL Hx Genitourinary Disorders: No Hx Sexually Transmitted Disorders: No - PSYCHIATRIC Hx Psychophysiologic Disorder: Yes Hx Anxiety: Yes Hx Substance Use: No - SURGICAL HISTORY Hx Surgeries: Yes Hx Tubal Ligation: Yes - ANESTHESIA Hx Anesthesia: Yes Hx Anesthesia Reactions: No Hx Malignant Hyperthermia: No Meds Allergies/Adverse Reactions: Allergies Allergy/AdvReac Type Severity Reaction Status Date / Time No Known Allergies Allergy Verified 04/03/18 00:58 - Medications Medications: Current Medications Acetaminophen (Tylenol 325mg Tab) 650 mg PO Q6 PRN PRN Reason: Pain, moderate (4-7) Acetaminophen (Tylenol 325mg Tab) 650 mg PO Q6 PRN PRN Reason: Fever >100.4 F Alprazolam (Xanax) 1 mg PO Q8 PRN PRN Reason: Anxiety Last Admin: 05/21/18 09:27 Dose: 1 mg Enoxaparin Sodium (Lovenox) 30 mg SC DAILY [facility] Last Admin: 05/21/18 09:27 Dose: 30 mg Folic Acid (Folic Acid) 1 mg PO DAILY [facility] Last Admin: 05/21/18 09:35 Dose: 1 mg Insulin Human Regular (Novolin R) 0 unit SC [facility]; Protocol Last Admin: 05/21/18 17:20 Dose: Not Given Losartan Potassium (Cozaar) 100 mg PO DAILY [facility] Last Admin: 05/21/18 09:35 Dose: 100 mg Memantine (Namenda) 10 mg PO BID [facility] Last Admin: 05/21/18 18:02 Dose: 10 mg Metoprolol Succinate (Toprol Xl) 50 mg PO DAILY [facility] Last Admin: 05/21/18 09:36 Dose: 50 mg Morphine Sulfate (Morphine) 1 mg IVP Q4 PRN PRN Reason: Pain, severe (8-10) Last Admin: 05/21/18 14:28 Dose: 1 mg Quetiapine Fumarate (Seroquel) 25 mg PO DAILY [facility] Last Admin: 05/21/18 09:36 Dose: 25 mg Rosuvastatin Calcium (Crestor) 10 mg PO [facility] Valproate Sodium (Depakene Cap) 250 mg PO TIDCC [facility] Last Admin: 05/21/18 18:00 Dose: 250 mg Results - Vital Signs Recent Vital Signs: Last Vital Signs Temp 97.7 F 05/21/18 15:40 Pulse 88 05/21/18 15:40 Resp 20 05/21/18 15:40 BP 186/86 H 05/21/18 15:40 Pulse Ox 98 05/21/18 15:40 - Labs Result Diagrams: 05/21/18 13:56 05/20/18 16:27 Labs: Laboratory Results - last 24 hr 05/20/18 05/20/18 05/21/18 21:09 23:00 06:32 WBC RBC Hgb Hct MCV MCH MCHC RDW Plt Count MPV Differential Comment POC Glucose (mg/dL) 192 H 120 H 25-OH Vitamin D Total Urine Color Yellow Urine Clarity Clear Urine pH 6.0 Ur Specific [place] 1.018 Urine Protein Negative Urine Glucose (UA) Normal Urine Ketones Trace Urine Blood Negative Urine Nitrate Negative Urine Bilirubin Negative Urine Urobilinogen Normal Ur Leukocyte Esterase Neg Urine WBC (Auto) 1 Urine RBC (Auto) 3 Ur Squamous Epith Cells 2 Urine Bacteria Rare 05/21/18 05/21/18 05/21/18 12:01 13:56 13:56 WBC 5.9 RBC 3.10 L Hgb 9.6 L Hct 29.7 L MCV 95.7 MCH 30.8 MCHC 32.2 L RDW 13.8 Plt Count 122 L D MPV 9.4 Differential Comment POC Glucose (mg/dL) 141 H 25-OH Vitamin D Total 45.6 Urine Color Urine Clarity Urine pH Ur Specific [place] Urine Protein Urine Glucose (UA) Urine Ketones Urine Blood Urine Nitrate Urine Bilirubin Urine Urobilinogen Ur Leukocyte Esterase Urine WBC (Auto) Urine RBC (Auto) Ur Squamous Epith Cells Urine Bacteria 05/21/18 16:45 WBC RBC Hgb Hct MCV MCH MCHC RDW Plt Count MPV Differential Comment POC Glucose (mg/dL) 143 H 25-OH Vitamin D Total Urine Color Urine Clarity Urine pH Ur Specific [place] Urine Protein Urine Glucose (UA) Urine Ketones Urine Blood Urine Nitrate Urine Bilirubin Urine Urobilinogen Ur Leukocyte Esterase Urine WBC (Auto) Urine RBC (Auto) Ur Squamous Epith Cells Urine Bacteria Assessment & Plan - Assessment and Plan (Free Text) Assessment: 67 F with DM2, HTN s/p fall for Hip surgery Patient had a recent cardiac work up Stress test: Normal ECHO: Normal EF, No major valvular issues This patient assessed as low to moderate cardiac risk for Hip surgery under general anaesthesia Recommend better BP control prior to surgery (SBP <150) Hydralazine 25 mg tid added
--- NOTE | 2018-05-21 19:10 | CARD ---
APPROVED REPORT Date of service: 05/20/2018 EKG Measurement Heart [id number] <Conclusion> Normal sinus rhythm Septal infarct, age undetermined Abnormal ECG
[2018-05-22 07:49] LABS: HEMOGLOBIN 9.5 g/dL (11.0-16.0); MEAN CELL VOLUME 95.1 fL (81.0-99.0); MEAN CORPUSCULAR HEMOGLOBIN 31.2 pg (27.0-31.0); MEAN CORPUSCULAR HGB CONC 32.8 g/dL (33.0-37.0); MEAN PLATELET VOLUME 9.1 fL (7.2-11.7); RBC 3.04 Mil/uL (3.80-5.20); RED CELL DISTRIBUTION WIDTH 13.7 % (11.5-14.5); WHITE BLOOD COUNT 6.4 K/uL (4.8-10.8)
[2018-05-22 08:02] LABS: BLOOD UREA NITROGEN 16 mg/dL (7-17); GFR NON-AFRICAN AMERICAN > 60
[2018-05-22] MEDS: (Novolin R) Insulin Human Regular 100 units/ml vial SC SCH ×3 (08:15→21:32)
[2018-05-22] MEDS: Metoprolol Succinate 50 mg XL Tab PO SCH (10:25)
[2018-05-22] MEDS: Enoxaparin 30 mg Syringe SC SCH (10:25)
[2018-05-23] MEDS: (Novolin R) Insulin Human Regular 100 units/ml vial SC SCH ×4 (07:00→23:51)
[2018-05-23 08:30] LABS: HEMOGLOBIN 9.8 g/dL (11.0-16.0); MEAN CELL VOLUME 95.4 fL (81.0-99.0); MEAN CORPUSCULAR HEMOGLOBIN 31.4 pg (27.0-31.0); MEAN CORPUSCULAR HGB CONC 32.9 g/dL (33.0-37.0); MEAN PLATELET VOLUME 9.1 fL (7.2-11.7); RBC 3.11 Mil/uL (3.80-5.20); RED CELL DISTRIBUTION WIDTH 13.6 % (11.5-14.5); WHITE BLOOD COUNT 7.3 K/uL (4.8-10.8)
[2018-05-23 08:47] LABS: BLOOD UREA NITROGEN 24 mg/dL (7-17); CALCIUM 9.2 mg/dl (8.6-10.4); GFR NON-AFRICAN AMERICAN > 60
[2018-05-23] MEDS: Metoprolol Succinate 50 mg XL Tab PO SCH (10:33)
[2018-05-23] MEDS: Enoxaparin 30 mg Syringe SC SCH (10:33)
--- NOTE | 2018-05-23 21:47 | CP.PCM.PN ---
Subjective - Date & Time of Evaluation Date of Evaluation: 05/23/18 Time of Evaluation: 21:39 - Subjective Subjective: Patient seen and evaluated. Denies chest pain and dyspnea Review of Systems - Review of Systems Systems not reviewed;Unavailable: Dementia All systems: reviewed and no additional remarkable complaints except Physical Exam - Constitutional Appears: Well, No Acute Distress - Head Exam Head Exam: ATRAUMATIC - Neck Exam Neck exam: Positive for: Full Rom, Normal Inspection - Respiratory Exam Respiratory Exam: NORMAL BREATHING PATTERN - Cardiovascular Exam Additional comments: +DP/PT pulses BLE - Expanded Lower Extremities Exam Left Hip exam: tenderness (pain with attempts at ROM of left hip, sensation appears intact, but difficult to assess as patient requires repeated prompting to follow commands) Ankle exam: FULL ROM, NORMAL INSPECTION - Neurological Exam Neurological exam: Alert - Psychiatric Exam Psychiatric exam: Normal Affect - Skin Skin Exam: Dry, Intact, Normal Color, Warm Additional comments: small bruise to left knee, non tender 05/21/18 16:45 WBC RBC Hgb Hct MCV MCH MCHC RDW Plt Count MPV Differential Comment POC Glucose (mg/dL) 143 H 25-OH Vitamin D Total Urine Color Urine Clarity Urine pH Ur Specific [place] Urine Protein Urine Glucose (UA) Urine Ketones Urine Blood Urine Nitrate Urine Bilirubin Urine Urobilinogen Ur Leukocyte Esterase Urine WBC (Auto) Urine RBC (Auto) Ur Squamous Epith Cells Urine Bacteria Assessment & Plan - Assessment and Plan (Free Text) Assessment: 67 F with DM2, HTN s/p fall for Hip surgery Patient had a recent cardiac work up Stress test: Normal ECHO: Normal EF, No major valvular issues This patient assessed as low to moderate cardiac risk for Hip surgery under general anaesthesia Objective - Vital Signs/Intake and Output Vital Signs (last 24 hours): Temp Pulse Resp BP Pulse Ox 97.8 F 115 H 20 114/81 95 05/23/18 16:00 05/23/18 16:00 05/23/18 16:00 05/23/18 16:00 05/23/18 16:00 Intake and Output: 05/23/18 05/24/18 18:59 06:59 Intake Total 600 Balance 600 - Medications Medications: Current Medications Acetaminophen (Tylenol 325mg Tab) 650 mg PO Q6 PRN PRN Reason: Pain, moderate (4-7) Acetaminophen (Tylenol 325mg Tab) 650 mg PO Q6 PRN PRN Reason: Fever >100.4 F Alprazolam (Xanax) 1 mg PO Q8 PRN PRN Reason: Anxiety Last Admin: 05/23/18 01:02 Dose: 1 mg Enoxaparin Sodium (Lovenox) 30 mg SC DAILY [facility] Last Admin: 05/23/18 10:33 Dose: 30 mg Folic Acid (Folic Acid) 1 mg PO DAILY [facility] Last Admin: 05/23/18 10:32 Dose: 1 mg Hydralazine HCl (Apresoline) 25 mg PO TID [facility] Last Admin: 05/23/18 19:11 Dose: 25 mg Insulin Human Regular (Novolin R) 0 unit SC [facility]; Protocol Last Admin: 05/23/18 19:12 Dose: 2 u Losartan Potassium (Cozaar) 100 mg PO DAILY [facility] Last Admin: 05/23/18 10:33 Dose: 100 mg Memantine (Namenda) 10 mg PO BID [facility] Last Admin: 05/23/18 19:11 Dose: 10 mg Metoprolol Succinate (Toprol Xl) 50 mg PO DAILY [facility] Last Admin: 05/23/18 10:33 Dose: 50 mg Morphine Sulfate (Morphine) 1 mg IVP Q4 PRN PRN Reason: Pain, severe (8-10) Last Admin: 05/23/18 01:10 Dose: 1 mg Quetiapine Fumarate (Seroquel) 25 mg PO DAILY [facility] Last Admin: 05/23/18 10:32 Dose: 25 mg Rosuvastatin Calcium (Crestor) 10 mg PO HS [facility] Last Admin: 05/22/18 21:28 Dose: 10 mg Valproate Sodium (Depakene Cap) 250 mg PO TIDCC [facility] Last Admin: 05/23/18 19:11 Dose: 250 mg - Labs Labs: 05/23/18 08:10 05/23/18 08:10 PT 11.5 SECONDS (9.7-12.2) 05/20/18 16:27 INR 1.1 05/20/18 16:27 APTT 28 SECONDS (21-34) 05/20/18 16:27
--- NOTE | 2018-05-23 22:15 | CP.PCM.PN ---
Subjective - Date & Time of Evaluation Date of Evaluation: 05/23/18 Time of Evaluation: 13:15 - Subjective Subjective: dictated Objective - Vital Signs/Intake and Output Vital Signs (last 24 hours): Temp Pulse Resp BP Pulse Ox 97.8 F 115 H 20 114/81 95 05/23/18 16:00 05/23/18 16:00 05/23/18 16:00 05/23/18 16:00 05/23/18 16:00 Intake and Output: 05/23/18 05/24/18 18:59 06:59 Intake Total 600 Balance 600 - Medications Medications: Current Medications Acetaminophen (Tylenol 325mg Tab) 650 mg PO Q6 PRN PRN Reason: Pain, moderate (4-7) Acetaminophen (Tylenol 325mg Tab) 650 mg PO Q6 PRN PRN Reason: Fever >100.4 F Alprazolam (Xanax) 1 mg PO Q8 PRN PRN Reason: Anxiety Last Admin: 05/23/18 01:02 Dose: 1 mg Enoxaparin Sodium (Lovenox) 30 mg SC DAILY [facility] Last Admin: 05/23/18 10:33 Dose: 30 mg Folic Acid (Folic Acid) 1 mg PO DAILY [facility] Last Admin: 05/23/18 10:32 Dose: 1 mg Hydralazine HCl (Apresoline) 25 mg PO TID [facility] Last Admin: 05/23/18 19:11 Dose: 25 mg Insulin Human Regular (Novolin R) 0 unit SC [facility]; Protocol Last Admin: 05/23/18 19:12 Dose: 2 u Losartan Potassium (Cozaar) 100 mg PO DAILY [facility] Last Admin: 05/23/18 10:33 Dose: 100 mg Memantine (Namenda) 10 mg PO BID [facility] Last Admin: 05/23/18 19:11 Dose: 10 mg Metoprolol Succinate (Toprol Xl) 50 mg PO DAILY [facility] Last Admin: 05/23/18 10:33 Dose: 50 mg Morphine Sulfate (Morphine) 1 mg IVP Q4 PRN PRN Reason: Pain, severe (8-10) Last Admin: 05/23/18 01:10 Dose: 1 mg Quetiapine Fumarate (Seroquel) 25 mg PO DAILY [facility] Last Admin: 05/23/18 10:32 Dose: 25 mg Rosuvastatin Calcium (Crestor) 10 mg PO HS [facility] Last Admin: 05/22/18 21:28 Dose: 10 mg Valproate Sodium (Depakene Cap) 250 mg PO TIDCC [facility] Last Admin: 05/23/18 19:11 Dose: 250 mg - Labs Labs: 05/23/18 08:10 05/23/18 08:10 PT 11.5 SECONDS (9.7-12.2) 05/20/18 16:27 INR 1.1 05/20/18 16:27 APTT 28 SECONDS (21-34) 05/20/18 16:27
--- NOTE | 2018-05-24 03:20 | PN ---
DATE: 05/23/2018 SUBJECTIVE: The patient is for OR, medically stable. No fever. No chills. She is delusional. PHYSICAL EXAMINATION: VITAL SIGNS: Blood pressure 114/81, pulse 115, respiratory rate 20, temperature 97.8. LUNGS: Clear. ABDOMEN: Soft. CENTRAL NERVOUS SYSTEM: The patient is awake and alert. ASSESSMENT: 1. Left hip fracture. 2. Hypertension. 3. Diabetes. 4. Psychosis. PLAN: OR in a.m. Medically stable. Abram Russell MD
[2018-05-24 07:34] LABS: HEMOGLOBIN 9.5 g/dL (11.0-16.0); MEAN CELL VOLUME 95.8 fL (81.0-99.0); MEAN CORPUSCULAR HEMOGLOBIN 31.5 pg (27.0-31.0); MEAN CORPUSCULAR HGB CONC 32.8 g/dL (33.0-37.0); MEAN PLATELET VOLUME 8.6 fL (7.2-11.7); RBC 3.02 Mil/uL (3.80-5.20); RED CELL DISTRIBUTION WIDTH 13.5 % (11.5-14.5); WHITE BLOOD COUNT 6.8 K/uL (4.8-10.8)
[2018-05-24 07:58] LABS: BLOOD UREA NITROGEN 26 mg/dL (7-17); CALCIUM 9.2 mg/dl (8.6-10.4); GFR NON-AFRICAN AMERICAN > 60
[2018-05-24] MEDS ORDERED: Sodium Chloride 0.9% 1,000 ML IV SCH (08:00)
[2018-05-24] MEDS: (Novolin R) Insulin Human Regular 100 units/ml vial SC SCH ×4 (08:12→22:35)
--- NOTE | 2018-05-24 09:38 | CP.PCM.PN ---
<Ottoniel Berman - Last Filed: 05/24/18 17:32> Subjective - Date & Time of Evaluation Date of Evaluation: 05/24/18 Time of Evaluation: 09:38 - Subjective Subjective: Dr. Landa Service Patient seen and examined at bedside. Per nursing, no acute events occurred overnight . Patient denies any chest pain, fevers, chills, nausea, vomiting, headaches, changes in vision, syncopal episodes, or any other complaints. Objective - Vital Signs/Intake and Output Vital Signs (last 24 hours): Temp Pulse Resp BP Pulse Ox 98.2 F 110 H 20 160/82 H 97 05/23/18 23:15 05/23/18 23:15 05/23/18 23:15 05/23/18 23:15 05/23/18 23:15 - Medications Medications: Current Medications Acetaminophen (Tylenol 325mg Tab) 650 mg PO Q6 PRN PRN Reason: Pain, moderate (4-7) Acetaminophen (Tylenol 325mg Tab) 650 mg PO Q6 PRN PRN Reason: Fever >100.4 F Alprazolam (Xanax) 1 mg PO Q8 PRN PRN Reason: Anxiety Last Admin: 05/23/18 01:02 Dose: 1 mg Enoxaparin Sodium (Lovenox) 30 mg SC DAILY [facility] Last Admin: 05/23/18 10:33 Dose: 30 mg Folic Acid (Folic Acid) 1 mg PO DAILY [facility] Last Admin: 05/23/18 10:32 Dose: 1 mg Hydralazine HCl (Apresoline) 25 mg PO TID [facility] Last Admin: 05/23/18 19:11 Dose: 25 mg Sodium Chloride (Sodium Chloride 0.9%) 1,000 mls @ 100 mls/hr IV .Q10H [facility] Insulin Human Regular (Novolin R) 0 unit SC ACHS [facility]; Protocol Last Admin: 05/23/18 23:51 Dose: Not Given Losartan Potassium (Cozaar) 100 mg PO DAILY [facility] Last Admin: 05/23/18 10:33 Dose: 100 mg Memantine (Namenda) 10 mg PO BID [facility] Last Admin: 05/23/18 19:11 Dose: 10 mg Metoprolol Succinate (Toprol Xl) 50 mg PO DAILY [facility] Last Admin: 05/23/18 10:33 Dose: 50 mg Morphine Sulfate (Morphine) 1 mg IVP Q4 PRN PRN Reason: Pain, severe (8-10) Last Admin: 05/23/18 01:10 Dose: 1 mg Quetiapine Fumarate (Seroquel) 25 mg PO DAILY [facility] Last Admin: 05/23/18 10:32 Dose: 25 mg Rosuvastatin Calcium (Crestor) 10 mg PO HS [facility] Last Admin: 05/23/18 22:08 Dose: 10 mg Valproate Sodium (Depakene Cap) 250 mg PO TIDCC [facility] Last Admin: 05/23/18 19:11 Dose: 250 mg - Labs Labs: 05/24/18 07:29 05/24/18 07:29 PT 11.5 SECONDS (9.7-12.2) 05/20/18 16:27 INR 1.1 05/20/18 16:27 APTT 28 SECONDS (21-34) 05/20/18 16:27 - Head Exam Head Exam: ATRAUMATIC, NORMAL INSPECTION - Eye Exam Eye Exam: EOMI, Normal appearance, PERRL Pupil Exam: NORMAL ACCOMODATION - ENT Exam ENT Exam: Mucous Membranes Moist, Normal Oropharynx - Respiratory Exam Respiratory Exam: Clear to Ausculation Bilateral, NORMAL BREATHING PATTERN. ab sent: Respiratory Distress - Cardiovascular Exam Cardiovascular Exam: REGULAR RHYTHM, +S1, +S2 - GI/Abdominal Exam GI & Abdominal Exam: Soft, Normal Bowel Sounds. absent: Hyperactive Bowel Sounds - Back Exam Back Exam: NORMAL INSPECTION. absent: paraspinal tenderness - Neurological Exam Neurological Exam: Alert, Awake, Oriented x3 - Psychiatric Exam Psychiatric exam: Normal Affect, Normal Mood - Skin Skin Exam: Dry, Intact Assessment and Plan - Assessment and Plan (Free Text) Assessment: 67 F with DM2, HTN s/p fall for Hip surgery. Plan: 1. S/p mechanical fall Stress test: Normal ECHO: Normal EF, No major valvular issues This patient assessed as low to moderate cardiac risk for Hip surgery under general anaesthesia. Patient scheduled to undergo surgery today. Will f/u. 2.HTN -Hydralazine 25mg PO TIC PING -Cozaar 100mg PO DAILY PING -Toprol XL 50MG Daily [facility] 3.Anxiety -Xanax 1mg PO Q8 PRN 4.Dementia -Namenda 10mg PO BID PING -Seroquel 25mg PO DAILY 5.DM -ISS 6.HLD -Crestor 10mg PO HS PING ppx -Lovenox held Plan discussed with Attending Dr. Landa. Ottoniel Berman, PGY-2 <Je Landa - Last Filed: 05/24/18 23:33> Objective - Vital Signs/Intake and Output Vital Signs (last 24 hours): Temp Pulse Resp BP Pulse Ox 98.1 F 101 H 20 167/86 H 98 05/24/18 22:20 05/24/18 22:20 05/24/18 22:20 05/24/18 22:20 05/24/18 22:20 Intake and Output: 05/24/18 05/25/18 18:59 06:59 Intake Total 1425 100 Balance 1425 100 - Medications Medications: Current Medications Acetaminophen (Tylenol 325mg Tab) 650 mg PO Q6 PRN PRN Reason: Pain, moderate (4-7) Acetaminophen (Tylenol 325mg Tab) 650 mg PO Q6 PRN PRN Reason: Fever >100.4 F Alprazolam (Xanax) 1 mg PO Q8 PRN PRN Reason: Anxiety Last Admin: 05/23/18 01:02 Dose: 1 mg Docusate Sodium (Colace) 100 mg PO BID [facility] Enoxaparin Sodium (Lovenox) 40 mg SC DAILY [facility] Ferrous Sulfate (Feosol) 325 mg PO BID [facility] Last Admin: 05/24/18 18:34 Dose: Not Given Folic Acid (Folic Acid) 1 mg PO DAILY [facility] Last Admin: 05/24/18 10:45 Dose: 1 mg Hydralazine HCl (Apresoline) 25 mg PO TID [facility] Last Admin: 05/24/18 18:18 Dose: Not Given Cefazolin Sodium/Dextrose (Ancef Iv 1 Gm Duplex) 1 gm in 50 mls @ 100 mls/hr I VPB Q8H [facility]; Protocol Stop: 05/25/18 02:14 Sodium Chloride (Sodium Chloride 0.9%) 1,000 mls @ 80 mls/hr IV .[id number] [facility] Last Admin: 05/24/18 19:20 Dose: Not Given Insulin Human Regular (Novolin R) 0 unit SC ACHS [facility]; Protocol Last Admin: 05/24/18 22:35 Dose: Not Given Losartan Potassium (Cozaar) 100 mg PO DAILY [facility] Last Admin: 05/24/18 10:45 Dose: 100 mg Memantine (Namenda) 10 mg PO BID [facility] Last Admin: 05/24/18 18:19 Dose: Not Given Metoprolol Succinate (Toprol Xl) 50 mg PO DAILY [facility] Last Admin: 05/24/18 10:45 Dose: 50 mg Morphine Sulfate (Morphine) 2 mg IVP Q4H PRN PRN Reason: Pain, severe (8-10) Ondansetron HCl (Zofran Inj) 4 mg IVP ONCE PRN PRN Reason: Nausea/Vomiting Oxycodone/Acetaminophen (Percocet 5/325 Mg Tab) 1 tab PO Q4 PRN PRN Reason: Pain, Mild (1-3) Stop: 05/27/18 17:40 Oxycodone/Acetaminophen (Percocet 5/325 Mg Tab) 2 tab PO Q4H PRN PRN Reason: Pain, moderate (4-7) Stop: 05/27/18 17:40 Quetiapine Fumarate (Seroquel) 25 mg PO DAILY [facility] Last Admin: 05/24/18 10:45 Dose: 25 mg Rosuvastatin Calcium (Crestor) 10 mg PO HS [facility] Last Admin: 05/24/18 22:34 Dose: Not Given Valproate Sodium (Depakene Cap) 250 mg PO TIDCC [facility] Last Admin: 05/24/18 18:18 Dose: Not Given - Labs Labs: 05/24/18 07:29 05/24/18 07:29 PT 11.5 SECONDS (9.7-12.2) 05/20/18 16:27 INR 1.1 05/20/18 16:27 APTT 28 SECONDS (21-34) 05/20/18 16:27 Assessment and Plan - Assessment and Plan (Free Text) Plan: Patient seen and evaluated personally by me. Plan of care d/w the resident and as documented
[2018-05-24] MEDS: Metoprolol Succinate 50 mg XL Tab PO SCH (10:45)
[2018-05-24] MEDS ORDERED: Thrombin Topical 20,000 Intl Units Spray Kit TOP ONE (15:15)
[2018-05-24] MEDS ORDERED: Bacitracin 50,000 UNIT in Sodium Chloride 0.9% Irrig 1,000 ML IR SCH (15:15)
[2018-05-24] MEDS ORDERED: Absorbable Gelatin Sponge Size 100 ONE (15:15)
[2018-05-24] MEDS ORDERED: Bupivacaine HCl 0.5% PF (10 ml) Inj ONE (15:16)
[2018-05-24] MEDS ORDERED: ceFAZolin 1 gm in NS 1 GM/100 ML BAG IVPB ONE (16:10)
[2018-05-24] MEDS: ceFAZolin 1 gm in NS 0 GM/0 ML BAG IVPB ONE ×2 (16:30→17:15)
[2018-05-24] MEDS ORDERED: Etomidate 20 mg/10ml Inj IV ONE (16:31)
[2018-05-24] MEDS ORDERED: Phenylephrine 10 mg/ml Inj ONE (17:20)
[2018-05-24] MEDS ORDERED: Oxycodone/Acetaminophen 5/325 mg Tab PO PRN (17:39)
[2018-05-24] MEDS ORDERED: ceFAZolin IV 1 gm in Dextrose 1 GM/50 ML BAG IVPB SCH (17:45)
[2018-05-24] MEDS ORDERED: Propofol 10 mg/ml Inj (20 ML) ONE (17:56)
--- NOTE | 2018-05-24 18:26 | PCM.SURG1 ---
Surgeon's Initial Post Op Note - Surgeon's Notes Surgeon: Sheila Chief Crna: CRISTHIAN Rodriguez Type of Anesthesia: General Endo Anesthesia Administered By: Dr Horace Peraza Pre-Operative Diagnosis: displaced intertroichanteric L femur fracture Operative Findings: as above Post-Operative Diagnosis: as above Operation Performed: ORIF L intertrochanteric femur fracture. positionig of fluoro/interpretation of video images Specimen/Specimens Removed: none Estimated Blood Loss: EBL {In ML}: 75 Blood Products Given: N/A Drains Used: No Drains Post-Op Condition: Fair Date of Surgery/Procedure: 05/24/18 Time of Surgery/Procedure: 17:45 (1620- time in room?anestahsesia indcution time)
[2018-05-24] MEDS ORDERED: Neostigmine 1:1000 (1 mg/ml) Inj ONE (18:56)
[2018-05-24] MEDS ORDERED: HYDROmorphone 0.5 mg/0.5 ml ISec IVP PRN (19:18)
[2018-05-24] MEDS: Sodium Chloride 0.9% 1,000 ML IV SCH (19:20)
--- NOTE | 2018-05-24 22:46 | CP.PCM.PN ---
Subjective - Date & Time of Evaluation Date of Evaluation: 05/24/18 Time of Evaluation: 09:00 - Subjective Subjective: dictated Objective - Vital Signs/Intake and Output Vital Signs (last 24 hours): Temp Pulse Resp BP Pulse Ox 98.1 F 101 H 20 167/86 H 98 05/24/18 22:20 05/24/18 22:20 05/24/18 22:20 05/24/18 22:20 05/24/18 22:20 Intake and Output: 05/24/18 05/25/18 18:59 06:59 Intake Total 1425 100 Balance 1425 100 - Medications Medications: Current Medications Acetaminophen (Tylenol 325mg Tab) 650 mg PO Q6 PRN PRN Reason: Pain, moderate (4-7) Acetaminophen (Tylenol 325mg Tab) 650 mg PO Q6 PRN PRN Reason: Fever >100.4 F Alprazolam (Xanax) 1 mg PO Q8 PRN PRN Reason: Anxiety Last Admin: 05/23/18 01:02 Dose: 1 mg Docusate Sodium (Colace) 100 mg PO BID [facility] Enoxaparin Sodium (Lovenox) 40 mg SC DAILY [facility] Ferrous Sulfate (Feosol) 325 mg PO BID [facility] Last Admin: 05/24/18 18:34 Dose: Not Given Folic Acid (Folic Acid) 1 mg PO DAILY [facility] Last Admin: 05/24/18 10:45 Dose: 1 mg Hydralazine HCl (Apresoline) 25 mg PO TID [facility] Last Admin: 05/24/18 18:18 Dose: Not Given Cefazolin Sodium/Dextrose (Ancef Iv 1 Gm Duplex) 1 gm in 50 mls @ 100 mls/hr IVPB Q8H [facility]; Protocol Stop: 05/25/18 02:14 Sodium Chloride (Sodium Chloride 0.9%) 1,000 mls @ 80 mls/hr IV .[id number] [facility] Last Admin: 05/24/18 19:20 Dose: Not Given Insulin Human Regular (Novolin R) 0 unit SC ACHS [facility]; Protocol Last Admin: 05/24/18 22:35 Dose: Not Given Losartan Potassium (Cozaar) 100 mg PO DAILY [facility] Last Admin: 05/24/18 10:45 Dose: 100 mg Memantine (Namenda) 10 mg PO BID [facility] Last Admin: 05/24/18 18:19 Dose: Not Given Metoprolol Succinate (Toprol Xl) 50 mg PO DAILY [facility] Last Admin: 05/24/18 10:45 Dose: 50 mg Morphine Sulfate (Morphine) 2 mg IVP Q4H PRN PRN Reason: Pain, severe (8-10) Ondansetron HCl (Zofran Inj) 4 mg IVP ONCE PRN PRN Reason: Nausea/Vomiting Oxycodone/Acetaminophen (Percocet 5/325 Mg Tab) 1 tab PO Q4 PRN PRN Reason: Pain, Mild (1-3) Stop: 05/27/18 17:40 Oxycodone/Acetaminophen (Percocet 5/325 Mg Tab) 2 tab PO Q4H PRN PRN Reason: Pain, moderate (4-7) Stop: 05/27/18 17:40 Quetiapine Fumarate (Seroquel) 25 mg PO DAILY [facility] Last Admin: 05/24/18 10:45 Dose: 25 mg Rosuvastatin Calcium (Crestor) 10 mg PO HS [facility] Last Admin: 05/24/18 22:34 Dose: Not Given Valproate Sodium (Depakene Cap) 250 mg PO TIDCC [facility] Last Admin: 05/24/18 18:18 Dose: Not Given - Labs Labs: 05/24/18 07:29 05/24/18 07:29 PT 11.5 SECONDS (9.7-12.2) 05/20/18 16:27 INR 1.1 05/20/18 16:27 APTT 28 SECONDS (21-34) 05/20/18 16:27
--- NOTE | 2018-05-25 01:21 | PN ---
DATE: 05/24/2018 SUBJECTIVE: I spoke to son about the patient's condition. The patient is overall stable, and she is undergoing orthopedic surgery for left hip with Dr. Sosa. PHYSICAL EXAMINATION: VITAL SIGNS: Blood pressure 167/86, pulse 101, respiratory rate 20, and temperature 98.1. LUNGS: Clear. CARDIOVASCULAR SYSTEM: S1, S2, regular. No heave. No thrill. ABDOMEN: Soft and nontender. Bowel sounds are positive. ASSESSMENT: 1. Left hip fracture, traumatic due to fall. 2. Hypertension. 3. Diabetes. 4. Dementia. PLAN: OR and postop care. Monitor the patient. Abram Russell MD
[2018-05-25] MEDS: Sodium Chloride 0.9% 1,000 ML IV SCH (06:57)
[2018-05-25] MEDS: Morphine 4 MG/ML VIAL IVP PRN ×3 (07:14→20:33)
[2018-05-25 07:46] LABS: HEMOGLOBIN 10.5 g/dL (11.0-16.0); MEAN CORPUSCULAR HEMOGLOBIN 31.3 pg (27.0-31.0); MEAN CORPUSCULAR HGB CONC 33.6 g/dL (33.0-37.0); MEAN PLATELET VOLUME 8.9 fL (7.2-11.7); RBC 3.37 Mil/uL (3.80-5.20); RED CELL DISTRIBUTION WIDTH 13.9 % (11.5-14.5); WHITE BLOOD COUNT 5.9 K/uL (4.8-10.8)
[2018-05-25 07:51] LABS: MEAN CELL VOLUME 93.1 fL (81.0-99.0)
[2018-05-25 07:59] LABS: BLOOD UREA NITROGEN 27 mg/dL (7-17); CALCIUM 8.7 mg/dl (8.6-10.4); GFR NON-AFRICAN AMERICAN > 60
[2018-05-25] MEDS: (Novolin R) Insulin Human Regular 100 units/ml vial SC SCH ×4 (08:11→22:29)
--- NOTE | 2018-05-25 09:02 | RAD ---
Date of service: 05/24/2018 PROCEDURE: HISTORY: s/p L hip ORIF COMPARISON: 05/20/2018 TECHNIQUE: Three views FINDINGS: Patient is status post open reduction and internal fixation of a comminuted left intertrochanteric fracture. An intramedullary rosanna transfixes is fracture with distal horizontal screw and oblique dynamic compression screw in place.. There is a small separate ossific fragment projecting inferior to the left femoral neck Background generalized osteopenia noted Total right hip arthroplasty with the amorphous increased sclerosis and amorphous heterotopic ossification bordering the right greater trochanter. Inferior lumbar spine marginal osteophytosis at the I suggested L5 superior compression fracture deformity-this is noted on the 06/[address] study. IMPRESSION: Status post open reduction internal fixation of a left intertrochanteric fracture-hardware intact. Fracture appearance otherwise similar Other findings as above.
--- NOTE | 2018-05-25 09:25 | CP.PCM.PN ---
Subjective - Date & Time of Evaluation Date of Evaluation: 05/25/18 Time of Evaluation: 09:00 - Subjective Subjective: Patient with son at bedside. He says she always complains of back pain at home, and she hasn't been complaining of back pain to him during this admission. Currently she is complaining of hip pain on left. Denies CP/dizziness/numbness/tingling. Objective - Vital Signs/Intake and Output Vital Signs (last 24 hours): Temp Pulse Resp BP Pulse Ox 98.3 F 110 H 18 148/82 98 05/25/18 09:06 05/25/18 09:06 05/25/18 09:06 05/25/18 09:06 05/25/18 09:06 Intake and Output: 05/25/18 05/25/18 06:59 18:59 Intake Total 100 Balance 100 - Medications Medications: Current Medications Acetaminophen (Tylenol 325mg Tab) 650 mg PO Q6 PRN PRN Reason: Pain, moderate (4-7) Acetaminophen (Tylenol 325mg Tab) 650 mg PO Q6 PRN PRN Reason: Fever >100.4 F Alprazolam (Xanax) 1 mg PO Q8 PRN PRN Reason: Anxiety Last Admin: 05/23/18 01:02 Dose: 1 mg Docusate Sodium (Colace) 100 mg PO BID [facility] Enoxaparin Sodium (Lovenox) 40 mg SC DAILY [facility] Ferrous Sulfate (Feosol) 325 mg PO BID [facility] Last Admin: 05/24/18 18:34 Dose: Not Given Folic Acid (Folic Acid) 1 mg PO DAILY [facility] Last Admin: 05/24/18 10:45 Dose: 1 mg Hydralazine HCl (Apresoline) 25 mg PO TID [facility] Last Admin: 05/24/18 18:18 Dose: Not Given Sodium Chloride (Sodium Chloride 0.9%) 1,000 mls @ 80 mls/hr IV .[id number] [facility] Last Admin: 05/25/18 06:57 Dose: Not Given Insulin Human Regular (Novolin R) 0 unit SC [facility]; Protocol Last Admin: 05/25/18 08:11 Dose: 1 u Losartan Potassium (Cozaar) 100 mg PO DAILY [facility] Last Admin: 05/24/18 10:45 Dose: 100 mg Memantine (Namenda) 10 mg PO BID [facility] Last Admin: 05/24/18 18:19 Dose: Not Given Metoprolol Succinate (Toprol Xl) 50 mg PO DAILY [facility] Last Admin: 05/24/18 10:45 Dose: 50 mg Morphine Sulfate (Morphine) 2 mg IVP Q4H PRN PRN Reason: Pain, severe (8-10) Last Admin: 05/25/18 07:14 Dose: 2 mg Ondansetron HCl (Zofran Inj) 4 mg IVP ONCE PRN PRN Reason: Nausea/Vomiting Oxycodone/Acetaminophen (Percocet 5/325 Mg Tab) 1 tab PO Q4 PRN PRN Reason: Pain, Mild (1-3) Stop: 05/27/18 17:40 Oxycodone/Acetaminophen (Percocet 5/325 Mg Tab) 2 tab PO Q4H PRN PRN Reason: Pain, moderate (4-7) Stop: 05/27/18 17:40 Quetiapine Fumarate (Seroquel) 25 mg PO DAILY [facility] Last Admin: 05/24/18 10:45 Dose: 25 mg Rosuvastatin Calcium (Crestor) 10 mg PO HS [facility] Last Admin: 05/24/18 22:34 Dose: Not Given Valproate Sodium (Depakene Cap) 250 mg PO TIDCC [facility] Last Admin: 05/24/18 18:18 Dose: Not Given - Labs Labs: 05/25/18 07:19 05/25/18 07:19 PT 11.5 SECONDS (9.7-12.2) 05/20/18 16:27 INR 1.1 05/20/18 16:27 APTT 28 SECONDS (21-34) 05/20/18 16:27 - Extremities Exam Additional comments: LLE: dressing intact, binu intact +ROM ankle/toes 5/5 BLE, sensation intact BLE, +DP/PT pulses calves soft NT neg homans Assessment and Plan (1) Fracture, intertrochanteric, left femur Assessment & Plan: POD#1 s/p ORIF PT/OT VTE proph d/c planning f/u labs d/w Dr. Sosa, agrees with above Status: Acute (2) Lumbar compression fracture Assessment & Plan: per CT most prominent L2, L1, L4, L5, T9, T10, T11 with some worsening from prior exam 2017 per radiology with spinal stenosis recommend spine/neurosurgery consultation as this is beyond scope of practice for Dr. Sosa Noted large cystic lesions in pelvis, small kidney, defer to Dr. Russell Status: Acute Radiology Interpretation - Radiology Interpretation #2 Interpretation: ccession No. : [id number] Patient Name / ID : KINGSLEY BROWN / [id number] Exam Date : 05/21/2018 11:20:08 ( Approved ) Study Comment : Sex / Age : F / 67Y Creator : Mckenna Blas MD Dictator : Mckenna Blas MD Bologna Maker : Restrooms Or Lounges Maid : Mckenna Blas MD Approver2 : Report Date : 05/21/2018 13:20:34 My Comment : Date of service: 05/21/2018 PROCEDURE: CT Lumbar Spine without contrast HISTORY: fall, LBP COMPARISON: Comparison is made to the previous study dated 12/07/2016 TECHNIQUE: Axial computed tomography images were obtained of the lumbar spine without the use of intravenous contrast. Coronal and sagittal reformatted images were created and reviewed. Radiation dose: Total exam DLP = 2134.31 mGy-cm. This CT exam was performed using one or more of the following dose reduction techniques: Automated exposure control, adjustment of the mA and/or kV according to patient size, and/or use of iterative reconstruction technique. FINDINGS: VERTEBRAE: There is severe compression deformity of L2 and moderate to severe compression deformity of L1. Moderate compression deformity of L4 and L5 is also noted. Findings are slightly worse compared to the prior exam. DISCS/SPINAL CANAL/NEURAL FORAMINA: L1-2: There is a small bony retropulsion and bulging disc which resulting in mild spinal stenosis. L2-3: Small bulging disc resulting in mild spinal stenosis. L3-4: Small to moderate-size bulging disc which resulting in mild to moderate spinal stenosis. L4-5: Posterior osteophyte bulging disc associated with posterior ligament and facet joint hypertrophy which resulting in moderate spinal stenosis. L5-S1: Posterior osteophyte bulging disc associated with posterior ligament and facet joint hypertrophy which resulting in mild spinal stenosis. PARASPINAL SOFT TISSUES: There is large cystic lesion in the right pelvis of uncertain etiology. The right kidney is small in size. There is diffuse atherosclerotic calcification in the abdominal aorta and iliac arteries. There is possible calcification versus stone in the bladder. OTHER FINDINGS: Moderate compression deformity of T11 and mild to moderate compression deformity of T9 and T10 are also noted. IMPRESSION: Limited study due to the patient condition. Interval slight worsening of multilevel compression deformities at the lumbar spine more prominent at L2. Multilevel posterior osteophyte bulging disc associated with posterior ligament and facet joint hypertrophy which resulting in spinal stenosis. Large cystic lesions in the right aspect of the pelvis of uncertain etiology. Further evaluation by ultrasound is recommended
[2018-05-25] MEDS ORDERED: Enoxaparin 40 mg Syringe SC SCH (10:00)
[2018-05-25] MEDS: Metoprolol Succinate 50 mg XL Tab PO SCH (10:00)
--- NOTE | 2018-05-25 13:12 | CP.PCM.PN ---
<Ottoniel Berman - Last Filed: 05/25/18 17:22> Subjective - Date & Time of Evaluation Date of Evaluation: 05/25/18 Time of Evaluation: 13:12 - Subjective Subjective: Dr. Landa Service Patient seen and examined at bedside. Per nursing, no acute events occurred overnight . Patient denies any chest pain, fevers, chills, nausea, vomiting, headaches, changes in vision, syncopal episodes, or any other complaints. Objective - Vital Signs/Intake and Output Vital Signs (last 24 hours): Temp Pulse Resp BP Pulse Ox 98.3 F 110 H 18 148/82 98 05/25/18 09:06 05/25/18 09:06 05/25/18 09:06 05/25/18 09:06 05/25/18 09:06 Intake and Output: 05/25/18 05/25/18 06:59 18:59 Intake Total 100 Balance 100 - Medications Medications: Current Medications Acetaminophen (Tylenol 325mg Tab) 650 mg PO Q6 PRN PRN Reason: Pain, moderate (4-7) Acetaminophen (Tylenol 325mg Tab) 650 mg PO Q6 PRN PRN Reason: Fever >100.4 F Alprazolam (Xanax) 1 mg PO Q8 PRN PRN Reason: Anxiety Last Admin: 05/23/18 01:02 Dose: 1 mg Docusate Sodium (Colace) 100 mg PO BID [facility] Last Admin: 05/25/18 10:01 Dose: 100 mg Enoxaparin Sodium (Lovenox) 40 mg SC DAILY [facility] Ferrous Sulfate (Feosol) 325 mg PO BID [facility] Last Admin: 05/25/18 10:00 Dose: 325 mg Folic Acid (Folic Acid) 1 mg PO DAILY [facility] Last Admin: 05/25/18 10:01 Dose: 1 mg Hydralazine HCl (Apresoline) 25 mg PO TID [facility] Last Admin: 05/25/18 10:04 Dose: 25 mg Sodium Chloride (Sodium Chloride 0.9%) 1,000 mls @ 80 mls/hr IV .[id number] [facility] Last Admin: 05/25/18 06:57 Dose: Not Given Insulin Human Regular (Novolin R) 0 unit SC [facility]; Protocol Last Admin: 05/25/18 12:36 Dose: 2 u Losartan Potassium (Cozaar) 100 mg PO DAILY [facility] Last Admin: 05/25/18 10:04 Dose: 100 mg Memantine (Namenda) 10 mg PO BID [facility] Last Admin: 05/25/18 10:01 Dose: 10 mg Metoprolol Succinate (Toprol Xl) 50 mg PO DAILY [facility] Last Admin: 05/25/18 10:00 Dose: 50 mg Morphine Sulfate (Morphine) 2 mg IVP Q4H PRN PRN Reason: Pain, severe (8-10) Last Admin: 05/25/18 07:14 Dose: 2 mg Ondansetron HCl (Zofran Inj) 4 mg IVP ONCE PRN PRN Reason: Nausea/Vomiting Oxycodone/Acetaminophen (Percocet 5/325 Mg Tab) 1 tab PO Q4 PRN PRN Reason: Pain, Mild (1-3) Stop: 05/27/18 17:40 Oxycodone/Acetaminophen (Percocet 5/325 Mg Tab) 2 tab PO Q4H PRN PRN Reason: Pain, moderate (4-7) Stop: 05/27/18 17:40 Quetiapine Fumarate (Seroquel) 25 mg PO DAILY [facility] Last Admin: 05/25/18 10:01 Dose: 25 mg Rosuvastatin Calcium (Crestor) 10 mg PO HS [facility] Last Admin: 05/24/18 22:34 Dose: Not Given Valproate Sodium (Depakene Cap) 250 mg PO TIDCC [facility] Last Admin: 05/25/18 09:00 Dose: 250 mg - Labs Labs: 05/25/18 07:19 05/25/18 07:19 PT 11.5 SECONDS (9.7-12.2) 05/20/18 16:27 INR 1.1 05/20/18 16:27 APTT 28 SECONDS (21-34) 05/20/18 16:27 - Head Exam Head Exam: ATRAUMATIC, NORMAL INSPECTION - Eye Exam Eye Exam: EOMI, Normal appearance, PERRL Pupil Exam: NORMAL ACCOMODATION - ENT Exam ENT Exam: Mucous Membranes Moist, Normal Oropharynx - Neck Exam Neck Exam: Normal Inspection - Respiratory Exam Respiratory Exam: Clear to Ausculation Bilateral, NORMAL BREATHING PATTERN. absent: Respiratory Distress - Cardiovascular Exam Cardiovascular Exam: REGULAR RHYTHM, +S1, +S2. absent: Rubs - GI/Abdominal Exam GI & Abdominal Exam: Soft, Normal Bowel Sounds. absent: Hyperactive Bowel Sounds - Extremities Exam Extremities Exam: Full ROM. absent: Pedal Edema - Neurological Exam Neurological Exam: Alert, Awake - Psychiatric Exam Psychiatric exam: Normal Affect, Normal Mood - Skin Skin Exam: Dry, Intact, Normal Color Assessment and Plan - Assessment and Plan (Free Text) Assessment: 67 F with DM2, HTN s/p fall for Hip surgery. Plan: 67 F with DM2, HTN s/p fall for Hip surgery. Plan: 1. S/p mechanical fall Stress test: Normal ECHO: Normal EF, No major valvular issues POD#1 2.HTN -Hydralazine 25mg PO TIC PING -Cozaar 100mg PO DAILY [facility] -Toprol XL 50MG Daily PING 3.Anxiety -Xanax 1mg PO Q8 PRN 4.Dementia -Namenda 10mg PO BID [facility] -Seroquel 25mg PO DAILY 5.DM -ISS 6.HLD -Crestor 10mg PO HS [facility] Plan discussed with Attending Dr. Landa. Ottoniel Berman, PGY-2 <Je Landa - Last Filed: 05/25/18 22:56> Objective - Vital Signs/Intake and Output Vital Signs (last 24 hours): Temp Pulse Resp BP Pulse Ox 97.8 F 104 H 20 151/78 H 96 05/25/18 15:00 05/25/18 15:00 05/25/18 15:00 05/25/18 15:00 05/25/18 15:00 Intake and Output: 05/25/18 05/26/18 18:59 06:59 Intake Total 940 Balance 940 - Medications Medications: Current Medications Acetaminophen (Tylenol 325mg Tab) 650 mg PO Q6 PRN PRN Reason: Pain, moderate (4-7) Acetaminophen (Tylenol 325mg Tab) 650 mg PO Q6 PRN PRN Reason: Fever >100.4 F Alprazolam (Xanax) 1 mg PO Q8 PRN PRN Reason: Anxiety Last Admin: 05/23/18 01:02 Dose: 1 mg Docusate Sodium (Colace) 100 mg PO BID [facility] Last Admin: 05/25/18 18:10 Dose: 100 mg Enoxaparin Sodium (Lovenox) 40 mg SC DAILY [facility] Last Admin: 05/25/18 16:00 Dose: 40 mg Ferrous Sulfate (Feosol) 325 mg PO BID [facility] Last Admin: 05/25/18 18:10 Dose: 325 mg Folic Acid (Folic Acid) 1 mg PO DAILY [facility] Last Admin: 05/25/18 10:01 Dose: 1 mg Hydralazine HCl (Apresoline) 25 mg PO TID [facility] Last Admin: 05/25/18 18:09 Dose: 25 mg Sodium Chloride (Sodium Chloride 0.9%) 1,000 mls @ 80 mls/hr IV .[id number] [facility] Last Admin: 05/25/18 06:57 Dose: Not Given Insulin Human Regular (Novolin R) 0 unit SC ACHS [facility]; Protocol Last Admin: 05/25/18 22:29 Dose: Not Given Losartan Potassium (Cozaar) 100 mg PO DAILY [facility] Last Admin: 05/25/18 10:04 Dose: 100 mg Memantine (Namenda) 10 mg PO BID [facility] Last Admin: 05/25/18 18:11 Dose: 10 mg Metoprolol Succinate (Toprol Xl) 50 mg PO DAILY [facility] Last Admin: 05/25/18 10:00 Dose: 50 mg Morphine Sulfate (Morphine) 2 mg IVP Q4H PRN PRN Reason: Pain, severe (8-10) Last Admin: 05/25/18 20:33 Dose: 2 mg Ondansetron HCl (Zofran Inj) 4 mg IVP ONCE PRN PRN Reason: Nausea/Vomiting Oxycodone/Acetaminophen (Percocet 5/325 Mg Tab) 1 tab PO Q4 PRN PRN Reason: Pain, Mild (1-3) Stop: 05/27/18 17:40 Oxycodone/Acetaminophen (Percocet 5/325 Mg Tab) 2 tab PO Q4H PRN PRN Reason: Pain, moderate (4-7) Stop: 05/27/18 17:40 Quetiapine Fumarate (Seroquel) 25 mg PO DAILY [facility] Last Admin: 05/25/18 10:01 Dose: 25 mg Rosuvastatin Calcium (Crestor) 10 mg PO HS [facility] Last Admin: 05/25/18 22:24 Dose: 10 mg Valproate Sodium (Depakene Cap) 250 mg PO TIDCC [facility] Last Admin: 05/25/18 18:09 Dose: 250 mg - Labs Labs: 05/25/18 07:19 05/25/18 07:19 PT 11.5 SECONDS (9.7-12.2) 05/20/18 16:27 INR 1.1 05/20/18 16:27 APTT 28 SECONDS (21-34) 05/20/18 16:27 Assessment and Plan - Assessment and Plan (Free Text) Plan: Patient seen and evaluated personally by me. Plan of care d/w the resident and as documented
--- NOTE | 2018-05-25 15:25 | OP ---
PROCEDURE DATE: 05/24/2018 PREOPERATIVE DIAGNOSIS: Displaced left intertrochanteric femur fracture. POSTOPERATIVE DIAGNOSIS: Displaced left intertrochanteric femur fracture. OPERATIVE FINDINGS: As above. OPERATIVE PROCEDURES: 1. Open reduction and internal fixation left intertrochanteric femur fracture. 2. Positioning of fluoroscope, interpretation of video images. SURGEON: Jamar Sosa MD DEBUBBLIZER: JAMAR Ghosh, certified registered nursing first aid instructor. TYPE OF ANESTHESIA: General endotracheal anesthesia. ANESTHESIA ADMINISTERED BY: Tripp Uriostegui MD SPECIMENS REMOVED: None. ESTIMATED BLOOD LOSS: Approximately 75 mL. BLOOD PRODUCTS GIVEN: 2 units packed cells. DRAINS: None. POSTOPERATIVE CONDITION: Stable. TIME OF THE PROCEDURE: Incision time 17:45, anesthesia induction time 16:20. OPERATIVE INDICATIONS: Flores Knox is a 67-year-old woman with multiple comorbidities who sustained a fracture of the left femur. The patient was admitted to [facility] in the service of Dr. Russell. The patient was stabilized and was taken to surgery. Pros, cons, risks, and benefits of the surgical approach were discussed with the patient's son. The informed consent had been obtained and verified. The possibility of mechanical failure, infection, thromboembolic disease, secondary or tertiary surgery was discussed. DESCRIPTION OF PROCEDURE: After having obtained informed consent, the patient identified as Flores Knox was placed in the supine position with all bony prominences well padded. The lower extremity was placed in the traction device and the right lower extremity was abducted and externally rotated. This having been accomplished under the surgeon's direction, the fluoroscope was positioned, video images were generated, and therapeutic decisions were made therefrom. Closed reduction was accomplished by traction and mild internal rotation. The position was found to be acceptable. Verification of position was offered on AP and lateral image intensification views. The left lower extremity was prepped and free draped in usual fashion for extremity surgery. An incision was described 3 fingerbreadths distal to the greater trochanter and approximately 4 fingerbreadths proximal in an oblique direction to mimic the bone of the femur. The skin incision was carried down to the skin and subcutaneous tissue. Hemostasis was controlled with the cautery. The incision was carried down through the fascia and this having been accomplished, the gluteus tracey cowl was carefully divided. At this point in time, the guidewire was placed into the tip of the greater trochanter and placed in the shaft of the femur. Verification of position was offered on AP and lateral image intensification views. The 10-mm interlocking intertrochanteric De[employer] nail was introduced. This having been accomplished, the nail having been introduced, verification of position was offered on AP and lateral image intensification views. The outrigger having been affixed, the tri-tubed guide was placed in the distal aspect for the interlocking aspect of the triflange nail. This having been accomplished, the guide pin was introduced through verification of position offered on AP and lateral image intensification views. The position was accepted. It was a bit valgus but it was accepted in the interest of getting the patient off the table secondary to her comorbidities. Reaming was accomplished to approximately 80 mm. A 75-mm triflange nail was introduced. The position was found to be acceptable and verification of position was offered on AP and lateral image intensification views. Stab wound was placed distally for the static distal interlock. Drilling was accomplished sounding through approximately 36 mm. The 36-mm screw was introduced. The wound was thoroughly irrigated. Closures in layers, the gluteus tracey with #2 Quill followed by Vicryl and samantha for skin and the 2 distal incisions were closed with Vicryl and samantha. Compression dressing was applied. Verification of position was offered on AP and lateral image intensification views. The patient was transferred from the operating table to stretcher having tolerated the procedure well. Jamar Sosa MD
[2018-05-25] MEDS: Enoxaparin 40 mg Syringe SC SCH (16:00)
[2018-05-25 16:10] VITALS: RESP 20
--- NOTE | 2018-05-25 16:15 | RAD ---
PROCEDURE: HISTORY: As above COMPARISON: None TECHNIQUE: Total fluoroscopic time utilized during the procedure: 29.8 seconds ; 0.04914 mGy cm 2 FINDINGS: Submitted images from the current procedure: 4 Please refer to the physician's notes performing the procedure. IMPRESSION: Less than 1 hour fluoroscopic time utilized during performance of the procedure
--- NOTE | 2018-05-25 22:38 | CP.PCM.PN ---
Subjective - Date & Time of Evaluation Date of Evaluation: 05/25/18 Time of Evaluation: 08:20 - Subjective Subjective: dictated Objective - Vital Signs/Intake and Output Vital Signs (last 24 hours): Temp Pulse Resp BP Pulse Ox 97.8 F 104 H 20 151/78 H 96 05/25/18 15:00 05/25/18 15:00 05/25/18 15:00 05/25/18 15:00 05/25/18 15:00 Intake and Output: 05/25/18 05/26/18 18:59 06:59 Intake Total 940 Balance 940 - Medications Medications: Current Medications Acetaminophen (Tylenol 325mg Tab) 650 mg PO Q6 PRN PRN Reason: Pain, moderate (4-7) Acetaminophen (Tylenol 325mg Tab) 650 mg PO Q6 PRN PRN Reason: Fever >100.4 F Alprazolam (Xanax) 1 mg PO Q8 PRN PRN Reason: Anxiety Last Admin: 05/23/18 01:02 Dose: 1 mg Docusate Sodium (Colace) 100 mg PO BID [facility] Last Admin: 05/25/18 18:10 Dose: 100 mg Enoxaparin Sodium (Lovenox) 40 mg SC DAILY [facility] Last Admin: 05/25/18 16:00 Dose: 40 mg Ferrous Sulfate (Feosol) 325 mg PO BID [facility] Last Admin: 05/25/18 18:10 Dose: 325 mg Folic Acid (Folic Acid) 1 mg PO DAILY [facility] Last Admin: 05/25/18 10:01 Dose: 1 mg Hydralazine HCl (Apresoline) 25 mg PO TID [facility] Last Admin: 05/25/18 18:09 Dose: 25 mg Sodium Chloride (Sodium Chloride 0.9%) 1,000 mls @ 80 mls/hr IV .[id number] [facility] Last Admin: 05/25/18 06:57 Dose: Not Given Insulin Human Regular (Novolin R) 0 unit SC [facility]; Protocol Last Admin: 05/25/18 22:29 Dose: Not Given Losartan Potassium (Cozaar) 100 mg PO DAILY [facility] Last Admin: 05/25/18 10:04 Dose: 100 mg Memantine (Namenda) 10 mg PO BID [facility] Last Admin: 05/25/18 18:11 Dose: 10 mg Metoprolol Succinate (Toprol Xl) 50 mg PO DAILY [facility] Last Admin: 05/25/18 10:00 Dose: 50 mg Morphine Sulfate (Morphine) 2 mg IVP Q4H PRN PRN Reason: Pain, severe (8-10) Last Admin: 05/25/18 20:33 Dose: 2 mg Ondansetron HCl (Zofran Inj) 4 mg IVP ONCE PRN PRN Reason: Nausea/Vomiting Oxycodone/Acetaminophen (Percocet 5/325 Mg Tab) 1 tab PO Q4 PRN PRN Reason: Pain, Mild (1-3) Stop: 05/27/18 17:40 Oxycodone/Acetaminophen (Percocet 5/325 Mg Tab) 2 tab PO Q4H PRN PRN Reason: Pain, moderate (4-7) Stop: 05/27/18 17:40 Quetiapine Fumarate (Seroquel) 25 mg PO DAILY [facility] Last Admin: 05/25/18 10:01 Dose: 25 mg Rosuvastatin Calcium (Crestor) 10 mg PO HS [facility] Last Admin: 05/25/18 22:24 Dose: 10 mg Valproate Sodium (Depakene Cap) 250 mg PO TIDCC [facility] Last Admin: 05/25/18 18:09 Dose: 250 mg - Labs Labs: 05/25/18 07:19 05/25/18 07:19 PT 11.5 SECONDS (9.7-12.2) 05/20/18 16:27 INR 1.1 05/20/18 16:27 APTT 28 SECONDS (21-34) 05/20/18 16:27
[2018-05-26 07:25] LABS: HEMOGLOBIN 9.9 g/dL (11.0-16.0); MEAN CELL VOLUME 94.5 fL (81.0-99.0); MEAN CORPUSCULAR HEMOGLOBIN 31.7 pg (27.0-31.0); MEAN CORPUSCULAR HGB CONC 33.5 g/dL (33.0-37.0); MEAN PLATELET VOLUME 8.4 fL (7.2-11.7); RBC 3.12 Mil/uL (3.80-5.20); RED CELL DISTRIBUTION WIDTH 14.1 % (11.5-14.5); WHITE BLOOD COUNT 6.7 K/uL (4.8-10.8)
[2018-05-26 07:36] LABS: BLOOD UREA NITROGEN 23 mg/dL (7-17); CALCIUM 8.9 mg/dl (8.6-10.4); GFR NON-AFRICAN AMERICAN > 60
[2018-05-26] MEDS: (Novolin R) Insulin Human Regular 100 units/ml vial SC SCH ×4 (08:09→21:59)
[2018-05-26] MEDS: Sodium Chloride 0.9% 1,000 ML IV SCH ×2 (08:39→23:42)
[2018-05-26] MEDS: Metoprolol Succinate 50 mg XL Tab PO SCH (10:18)
[2018-05-26] MEDS: Enoxaparin 40 mg Syringe SC SCH (10:18)
--- NOTE | 2018-05-26 10:46 | CP.PCM.PN ---
Subjective - Date & Time of Evaluation Date of Evaluation: 05/26/18 Time of Evaluation: 10:43 - Subjective Subjective: Patient complaining of left hip pain. No complaints of back pain. Objective - Vital Signs/Intake and Output Vital Signs (last 24 hours): Temp Pulse Resp BP Pulse Ox 98.3 F 101 H 20 188/86 H 97 05/26/18 08:55 05/26/18 08:55 05/26/18 08:55 05/26/18 08:55 05/26/18 08:55 - Medications Medications: Current Medications Acetaminophen (Tylenol 325mg Tab) 650 mg PO Q6 PRN PRN Reason: Pain, moderate (4-7) Acetaminophen (Tylenol 325mg Tab) 650 mg PO Q6 PRN PRN Reason: Fever >100.4 F Alprazolam (Xanax) 1 mg PO Q8 PRN PRN Reason: Anxiety Last Admin: 05/23/18 01:02 Dose: 1 mg Docusate Sodium (Colace) 100 mg PO BID [facility] Last Admin: 05/26/18 10:18 Dose: 100 mg Enoxaparin Sodium (Lovenox) 40 mg SC DAILY [facility] Last Admin: 05/26/18 10:18 Dose: 40 mg Ferrous Sulfate (Feosol) 325 mg PO BID [facility] Last Admin: 05/26/18 10:18 Dose: 325 mg Folic Acid (Folic Acid) 1 mg PO DAILY [facility] Last Admin: 05/26/18 10:18 Dose: 1 mg Hydralazine HCl (Apresoline) 25 mg PO TID [facility] Last Admin: 05/26/18 10:22 Dose: 25 mg Sodium Chloride (Sodium Chloride 0.9%) 1,000 mls @ 80 mls/hr IV .[id number] [facility] Last Admin: 05/26/18 08:39 Dose: 80 mls/hr Insulin Human Regular (Novolin R) 0 unit SC ACHS [facility]; Protocol Last Admin: 05/26/18 08:09 Dose: Not Given Losartan Potassium (Cozaar) 100 mg PO DAILY [facility] Last Admin: 05/26/18 10:18 Dose: 100 mg Memantine (Namenda) 10 mg PO BID [facility] Last Admin: 05/26/18 10:18 Dose: 10 mg Metoprolol Succinate (Toprol Xl) 50 mg PO DAILY [facility] Last Admin: 05/26/18 10:18 Dose: 50 mg Morphine Sulfate (Morphine) 2 mg IVP Q4H PRN PRN Reason: Pain, severe (8-10) Last Admin: 05/25/18 20:33 Dose: 2 mg Ondansetron HCl (Zofran Inj) 4 mg IVP ONCE PRN PRN Reason: Nausea/Vomiting Oxycodone/Acetaminophen (Percocet 5/325 Mg Tab) 1 tab PO Q4 PRN PRN Reason: Pain, Mild (1-3) Stop: 05/27/18 17:40 Oxycodone/Acetaminophen (Percocet 5/325 Mg Tab) 2 tab PO Q4H PRN PRN Reason: Pain, moderate (4-7) Stop: 05/27/18 17:40 Quetiapine Fumarate (Seroquel) 25 mg PO DAILY [facility] Last Admin: 05/26/18 10:18 Dose: 25 mg Rosuvastatin Calcium (Crestor) 10 mg PO HS [facility] Last Admin: 05/25/18 22:24 Dose: 10 mg Valproate Sodium (Depakene Cap) 250 mg PO TIDCC [facility] Last Admin: 05/26/18 08:36 Dose: 250 mg - Labs Labs: 05/26/18 07:15 05/26/18 07:15 PT 11.5 SECONDS (9.7-12.2) 05/20/18 16:27 INR 1.1 05/20/18 16:27 APTT 28 SECONDS (21-34) 05/20/18 16:27 - Constitutional Appears: No Acute Distress - Extremities Exam Additional comments: left hip: incision intact, scant sang drainage. No erythema. Thigh soft. +ROM ankle/toes, sensation intact calves soft NT neg homans +DP/PT pulses Assessment and Plan (1) Fracture, intertrochanteric, left femur Assessment & Plan: POD#2 s/p left hip ORIF orthopedically stable for d/c VTE proph PT/OT d/c planning d/w Dr. Wiley, agrees with above Status: Acute (2) Lumbar compression fracture Assessment & Plan: no complaints of back pain at this time defer to oncology account specialist Status: Acute
[2018-05-26] MEDS: Oxycodone/Acetaminophen 5/325 mg Tab PO PRN ×2 (11:37→23:51)
--- NOTE | 2018-05-26 13:59 | CARD ---
APPROVED REPORT Date of service: 05/24/2018 EKG Measurement Heart [id number] <Conclusion> Normal sinus rhythm Normal ECG
--- NOTE | 2018-05-26 14:16 | US ---
Date of service: 05/26/2018 HISTORY: mass COMPARISON: CT pelvis without contrast from 05/20/2018 and pelvic ultrasound from 04/05/2018. TECHNIQUE: Transabdominal pelvic ultrasound was performed. The patient refused endovaginal examination FINDINGS: UTERUS: Measures 5.6 x 2.0 x 2.7 cm. Anteverted, normal in size and appearance. No fibroid or other mass lesion seen. ENDOMETRIUM: Measures 1.8 mm in diameter. Normal in appearance. CERVIX: No cervical abnormality identified. RIGHT OVARY: Measures 9.5 x 6.8 x 9 3 cm. No solid mass. Normal flow. There is redemonstration of a 8.0 x 9.9 x 6.0 cm anechoic mass in the right ovary with smooth margins without central flow on color Doppler imaging essentially stable since the prior examination. LEFT OVARY: Measures 3.7 x 2.7 x 3.3 cm. No solid mass. Normal flow. There is a 2.7 x 1.8 x 2.4 cm cyst, stable since the prior examination. FREE FLUID: No significant free fluid noted. OTHER FINDINGS: None. IMPRESSION: 1. stable 8.0 x 9.9 x 6.0 cm cystic lesion in the right ovary. The differential considerations include simple cyst, cystadenoma and cystadenocarcinoma. Clinical follow-up is advised. Gynecologic consult is recommended. 2. Stable 2.7 cm simple cyst in the left ovary.
--- NOTE | 2018-05-26 15:10 | CP.PCM.PN ---
<Ottoniel Berman - Last Filed: 05/26/18 17:12> Subjective - Date & Time of Evaluation Date of Evaluation: 05/26/18 Time of Evaluation: 15:10 - Subjective Subjective: Dr. Landa Service Patient seen and examined at bedside. Per nursing, no acute events occurred overnight . Patient denies any chest pain, fevers, chills, nausea, vomiting, headaches, changes in vision, syncopal episodes, or any other complaints. Objective - Vital Signs/Intake and Output Vital Signs (last 24 hours): Temp Pulse Resp BP Pulse Ox 98.3 F 101 H 20 188/86 H 97 05/26/18 08:55 05/26/18 08:55 05/26/18 08:55 05/26/18 08:55 05/26/18 08:55 - Medications Medications: Current Medications Acetaminophen (Tylenol 325mg Tab) 650 mg PO Q6 PRN PRN Reason: Pain, moderate (4-7) Acetaminophen (Tylenol 325mg Tab) 650 mg PO Q6 PRN PRN Reason: Fever >100.4 F Alprazolam (Xanax) 1 mg PO Q8 PRN PRN Reason: Anxiety Last Admin: 05/23/18 01:02 Dose: 1 mg Docusate Sodium (Colace) 100 mg PO BID [facility] Last Admin: 05/26/18 10:18 Dose: 100 mg Enoxaparin Sodium (Lovenox) 40 mg SC DAILY [facility] Last Admin: 05/26/18 10:18 Dose: 40 mg Ferrous Sulfate (Feosol) 325 mg PO BID [facility] Last Admin: 05/26/18 10:18 Dose: 325 mg Folic Acid (Folic Acid) 1 mg PO DAILY [facility] Last Admin: 05/26/18 10:18 Dose: 1 mg Hydralazine HCl (Apresoline) 25 mg PO TID [facility] Last Admin: 05/26/18 14:00 Dose: 25 mg Sodium Chloride (Sodium Chloride 0.9%) 1,000 mls @ 80 mls/hr IV .[id number] [facility] Last Admin: 05/26/18 08:39 Dose: 80 mls/hr Insulin Human Regular (Novolin R) 0 unit SC ACHS [facility]; Protocol Last Admin: 05/26/18 12:30 Dose: 1 u Losartan Potassium (Cozaar) 100 mg PO DAILY [facility] Last Admin: 05/26/18 10:18 Dose: 100 mg Memantine (Namenda) 10 mg PO BID [facility] Last Admin: 05/26/18 10:18 Dose: 10 mg Metoprolol Succinate (Toprol Xl) 50 mg PO DAILY [facility] Last Admin: 05/26/18 10:18 Dose: 50 mg Morphine Sulfate (Morphine) 2 mg IVP Q4H PRN PRN Reason: Pain, severe (8-10) Last Admin: 05/25/18 20:33 Dose: 2 mg Ondansetron HCl (Zofran Inj) 4 mg IVP ONCE PRN PRN Reason: Nausea/Vomiting Oxycodone/Acetaminophen (Percocet 5/325 Mg Tab) 1 tab PO Q4 PRN PRN Reason: Pain, Mild (1-3) Stop: 05/27/18 17:40 Oxycodone/Acetaminophen (Percocet 5/325 Mg Tab) 2 tab PO Q4H PRN PRN Reason: Pain, moderate (4-7) Stop: 05/27/18 17:40 Last Admin: 05/26/18 11:37 Dose: 2 tab Quetiapine Fumarate (Seroquel) 25 mg PO DAILY [facility] Last Admin: 05/26/18 10:18 Dose: 25 mg Rosuvastatin Calcium (Crestor) 10 mg PO HS [facility] Last Admin: 05/25/18 22:24 Dose: 10 mg Valproate Sodium (Depakene Cap) 250 mg PO TIDCC [facility] Last Admin: 05/26/18 12:43 Dose: 250 mg - Labs Labs: 05/26/18 07:15 05/26/18 07:15 PT 11.5 SECONDS (9.7-12.2) 05/20/18 16:27 INR 1.1 05/20/18 16:27 APTT 28 SECONDS (21-34) 05/20/18 16:27 - Head Exam Head Exam: ATRAUMATIC, NORMAL INSPECTION - Eye Exam Eye Exam: EOMI, Normal appearance - ENT Exam ENT Exam: Mucous Membranes Moist, Normal Exam - Neck Exam Neck Exam: Normal Inspection - Respiratory Exam Respiratory Exam: Clear to Ausculation Bilateral, NORMAL BREATHING PATTERN. absent: Respiratory Distress - Cardiovascular Exam Cardiovascular Exam: REGULAR RHYTHM, +S1, +S2 - GI/Abdominal Exam GI & Abdominal Exam: Soft, Normal Bowel Sounds. absent: Hyperactive Bowel Sounds - Extremities Exam Extremities Exam: Normal Inspection. absent: Pedal Edema - Neurological Exam Neurological Exam: Alert, Awake, Oriented x3 - Psychiatric Exam Psychiatric exam: Normal Affect, Normal Mood - Skin Skin Exam: Dry, Intact Assessment and Plan - Assessment and Plan (Free Text) Assessment: 67 F with DM2, HTN s/p fall for Hip surgery. Plan: 1. S/p mechanical fall Stress test: Normal ECHO: Normal EF, No major valvular issues POD#2 2.HTN -Hydralazine 25mg PO TIC PING -Cozaar 100mg PO DAILY P[facility] -Toprol XL 50MG Daily PING 3.Anxiety -Xanax 1mg PO Q8 PRN 4.Dementia -Namenda 10mg PO BID [facility] -Seroquel 25mg PO DAILY 5.DM -ISS 6.HLD -Crestor 10mg PO HS [facility] Plan discussed with Attending Dr. Landa. Ottoniel Berman, PGY-2 <Je Landa - Last Filed: 05/26/18 21:41> Objective - Vital Signs/Intake and Output Vital Signs (last 24 hours): Temp Pulse Resp BP Pulse Ox 98.5 F 92 H 20 130/68 96 05/26/18 15:30 05/26/18 15:30 05/26/18 15:30 05/26/18 15:30 05/26/18 15:30 Intake and Output: 05/26/18 05/27/18 18:59 06:59 Intake Total 910 Balance 910 - Medications Medications: Current Medications Acetaminophen (Tylenol 325mg Tab) 650 mg PO Q6 PRN PRN Reason: Pain, moderate (4-7) Acetaminophen (Tylenol 325mg Tab) 650 mg PO Q6 PRN PRN Reason: Fever >100.4 F Alprazolam (Xanax) 1 mg PO Q8 PRN PRN Reason: Anxiety Last Admin: 05/23/18 01:02 Dose: 1 mg Docusate Sodium (Colace) 100 mg PO BID [facility] Last Admin: 05/26/18 18:37 Dose: Not Given Enoxaparin Sodium (Lovenox) 40 mg SC DAILY [facility] Last Admin: 05/26/18 10:18 Dose: 40 mg Ferrous Sulfate (Feosol) 325 mg PO BID [facility] Last Admin: 05/26/18 18:37 Dose: Not Given Folic Acid (Folic Acid) 1 mg PO DAILY [facility] Last Admin: 05/26/18 10:18 Dose: 1 mg Hydralazine HCl (Apresoline) 25 mg PO TID [facility] Last Admin: 05/26/18 18:37 Dose: Not Given Sodium Chloride (Sodium Chloride 0.9%) 1,000 mls @ 80 mls/hr IV .[id number] [facility] Last Admin: 05/26/18 08:39 Dose: 80 mls/hr Insulin Human Regular (Novolin R) 0 unit SC ACHS [facility]; Protocol Last Admin: 05/26/18 17:43 Dose: Not Given Losartan Potassium (Cozaar) 100 mg PO DAILY [facility] Last Admin: 05/26/18 10:18 Dose: 100 mg Memantine (Namenda) 10 mg PO BID [facility] Last Admin: 05/26/18 18:37 Dose: Not Given Metoprolol Succinate (Toprol Xl) 50 mg PO DAILY [facility] Last Admin: 05/26/18 10:18 Dose: 50 mg Morphine Sulfate (Morphine) 2 mg IVP Q4H PRN PRN Reason: Pain, severe (8-10) Last Admin: 05/25/18 20:33 Dose: 2 mg Ondansetron HCl (Zofran Inj) 4 mg IVP ONCE PRN PRN Reason: Nausea/Vomiting Oxycodone/Acetaminophen (Percocet 5/325 Mg Tab) 1 tab PO Q4 PRN PRN Reason: Pain, Mild (1-3) Stop: 05/27/18 17:40 Oxycodone/Acetaminophen (Percocet 5/325 Mg Tab) 2 tab PO Q4H PRN PRN Reason: Pain, moderate (4-7) Stop: 05/27/18 17:40 Last Admin: 05/26/18 11:37 Dose: 2 tab Quetiapine Fumarate (Seroquel) 25 mg PO DAILY [facility] Last Admin: 05/26/18 10:18 Dose: 25 mg Rosuvastatin Calcium (Crestor) 10 mg PO HS [facility] Last Admin: 05/25/18 22:24 Dose: 10 mg Valproate Sodium (Depakene Cap) 250 mg PO TIDCC [facility] Last Admin: 05/26/18 18:37 Dose: Not Given - Labs Labs: 05/26/18 07:15 05/26/18 07:15 PT 11.5 SECONDS (9.7-12.2) 05/20/18 16:27 INR 1.1 05/20/18 16:27 APTT 28 SECONDS (21-34) 05/20/18 16:27 Assessment and Plan - Assessment and Plan (Free Text) Assessment: Patient seen and evaluated personally by me. Plan of care d/w the resident and as documented
--- NOTE | 2018-05-26 22:07 | CP.PCM.PN ---
Subjective - Date & Time of Evaluation Date of Evaluation: 05/26/18 Time of Evaluation: 07:40 - Subjective Subjective: dictated Objective - Vital Signs/Intake and Output Vital Signs (last 24 hours): Temp Pulse Resp BP Pulse Ox 98.5 F 92 H 20 130/68 96 05/26/18 15:30 05/26/18 15:30 05/26/18 15:30 05/26/18 15:30 05/26/18 15:30 Intake and Output: 05/26/18 05/27/18 18:59 06:59 Intake Total 910 Balance 910 - Medications Medications: Current Medications Acetaminophen (Tylenol 325mg Tab) 650 mg PO Q6 PRN PRN Reason: Pain, moderate (4-7) Acetaminophen (Tylenol 325mg Tab) 650 mg PO Q6 PRN PRN Reason: Fever >100.4 F Alprazolam (Xanax) 1 mg PO Q8 PRN PRN Reason: Anxiety Last Admin: 05/23/18 01:02 Dose: 1 mg Docusate Sodium (Colace) 100 mg PO BID [facility] Last Admin: 05/26/18 20:00 Dose: 100 mg Enoxaparin Sodium (Lovenox) 40 mg SC DAILY [facility] Last Admin: 05/26/18 10:18 Dose: 40 mg Ferrous Sulfate (Feosol) 325 mg PO BID [facility] Last Admin: 05/26/18 18:37 Dose: Not Given Folic Acid (Folic Acid) 1 mg PO DAILY [facility] Last Admin: 05/26/18 10:18 Dose: 1 mg Hydralazine HCl (Apresoline) 25 mg PO TID [facility] Last Admin: 05/26/18 20:00 Dose: 25 mg Sodium Chloride (Sodium Chloride 0.9%) 1,000 mls @ 80 mls/hr IV .[id number] [facility] Last Admin: 05/26/18 08:39 Dose: 80 mls/hr Insulin Human Regular (Novolin R) [address] [facility]; Protocol Last Admin: 05/26/18 21:59 Dose: Not Given Losartan Potassium (Cozaar) 100 mg PO DAILY [facility] Last Admin: 05/26/18 10:18 Dose: 100 mg Memantine (Namenda) 10 mg PO BID [facility] Last Admin: 05/26/18 20:00 Dose: 10 mg Metoprolol Succinate (Toprol Xl) 50 mg PO DAILY [facility] Last Admin: 05/26/18 10:18 Dose: 50 mg Morphine Sulfate (Morphine) 2 mg IVP Q4H PRN PRN Reason: Pain, severe (8-10) Last Admin: 05/25/18 20:33 Dose: 2 mg Ondansetron HCl (Zofran Inj) 4 mg IVP ONCE PRN PRN Reason: Nausea/Vomiting Oxycodone/Acetaminophen (Percocet 5/325 Mg Tab) 1 tab PO Q4 PRN PRN Reason: Pain, Mild (1-3) Stop: 05/27/18 17:40 Oxycodone/Acetaminophen (Percocet 5/325 Mg Tab) 2 tab PO Q4H PRN PRN Reason: Pain, moderate (4-7) Stop: 05/27/18 17:40 Last Admin: 05/26/18 11:37 Dose: 2 tab Quetiapine Fumarate (Seroquel) 25 mg PO DAILY [facility] Last Admin: 05/26/18 10:18 Dose: 25 mg Rosuvastatin Calcium (Crestor) 10 mg PO HS [facility] Last Admin: 05/26/18 21:58 Dose: 10 mg Valproate Sodium (Depakene Cap) 250 mg PO TIDCC [facility] Last Admin: 05/26/18 20:00 Dose: 250 mg - Labs Labs: 05/26/18 07:15 05/26/18 07:15 PT 11.5 SECONDS (9.7-12.2) 05/20/18 16:27 INR 1.1 05/20/18 16:27 APTT 28 SECONDS (21-34) 05/20/18 16:27
--- NOTE | 2018-05-27 07:23 | CP.PCM.PN ---
Subjective - Date & Time of Evaluation Date of Evaluation: 05/27/18 Time of Evaluation: 07:15 - Subjective Subjective: Orthopedic progress note Patient seen and examined at bedside comfortable. Pain well controlled. No acute events overnight. Able to transfer to chair with PT yesterday. Objective - Vital Signs/Intake and Output Vital Signs (last 24 hours): Temp Pulse Resp BP Pulse Ox 98.8 F 82 20 169/92 H 97 05/26/18 23:30 05/26/18 23:30 05/26/18 23:30 05/26/18 23:30 05/26/18 23:30 - Medications Medications: Current Medications Acetaminophen (Tylenol 325mg Tab) 650 mg PO Q6 PRN PRN Reason: Pain, moderate (4-7) Acetaminophen (Tylenol 325mg Tab) 650 mg PO Q6 PRN PRN Reason: Fever >100.4 F Alprazolam (Xanax) 1 mg PO Q8 PRN PRN Reason: Anxiety Last Admin: 05/23/18 01:02 Dose: 1 mg Docusate Sodium (Colace) 100 mg PO BID [facility] Last Admin: 05/26/18 20:00 Dose: 100 mg Enoxaparin Sodium (Lovenox) 40 mg SC DAILY [facility] Last Admin: 05/26/18 10:18 Dose: 40 mg Ferrous Sulfate (Feosol) 325 mg PO BID [facility] Last Admin: 05/26/18 18:37 Dose: Not Given Folic Acid (Folic Acid) 1 mg PO DAILY [facility] Last Admin: 05/26/18 10:18 Dose: 1 mg Hydralazine HCl (Apresoline) 25 mg PO TID [facility] Last Admin: 05/26/18 20:00 Dose: 25 mg Sodium Chloride (Sodium Chloride 0.9%) 1,000 mls @ 80 mls/hr IV .[id number] [facility] Last Admin: 05/26/18 23:42 Dose: 80 mls/hr Insulin Human Regular (Novolin R) 0 unit SC [facility]; Protocol Last Admin: 05/26/18 21:59 Dose: Not Given Losartan Potassium (Cozaar) 100 mg PO DAILY [facility] Last Admin: 05/26/18 10:18 Dose: 100 mg Memantine (Namenda) 10 mg PO BID [facility] Last Admin: 05/26/18 20:00 Dose: 10 mg Metoprolol Succinate (Toprol Xl) 50 mg PO DAILY [facility] Last Admin: 05/26/18 10:18 Dose: 50 mg Morphine Sulfate (Morphine) 2 mg IVP Q4H PRN PRN Reason: Pain, severe (8-10) Last Admin: 05/25/18 20:33 Dose: 2 mg Ondansetron HCl (Zofran Inj) 4 mg IVP ONCE PRN PRN Reason: Nausea/Vomiting Oxycodone/Acetaminophen (Percocet 5/325 Mg Tab) 1 tab PO Q4 PRN PRN Reason: Pain, Mild (1-3) Stop: 05/27/18 17:40 Oxycodone/Acetaminophen (Percocet 5/325 Mg Tab) 2 tab PO Q4H PRN PRN Reason: Pain, moderate (4-7) Stop: 05/27/18 17:40 Last Admin: 05/26/18 23:51 Dose: 2 tab Quetiapine Fumarate (Seroquel) 25 mg PO DAILY [facility] Last Admin: 05/26/18 10:18 Dose: 25 mg Rosuvastatin Calcium (Crestor) 10 mg PO HS [facility] Last Admin: 05/26/18 21:58 Dose: 10 mg Valproate Sodium (Depakene Cap) 250 mg PO TIDCC [facility] Last Admin: 05/26/18 20:00 Dose: 250 mg - Labs Labs: 05/26/18 07:15 05/26/18 07:15 PT 11.5 SECONDS (9.7-12.2) 05/20/18 16:27 INR 1.1 05/20/18 16:27 APTT 28 SECONDS (21-34) 05/20/18 16:27 - Extremities Exam Additional comments: LLE: Moderate thigh swelling 2nd to surgery Dressings intact with mild dry sanguinous drainage Incisions CDI with samantha no drainage sensation intact SP/DP/TN motor intact EHL/FHL/TA/G pedal pulses intact calves soft NT b/l Assessment and Plan (1) Fracture, intertrochanteric, left femur Assessment & Plan: POD#3 s/p L hip IT fx ORIF with IM nail -PT/OT -Dressings changed this AM -ice to L hip -DVT ppx -orthopedically stable for discharge to [facility] d/w Dr. Sosa in agreement Status: Acute
[2018-05-27] MEDS: (Novolin R) Insulin Human Regular 100 units/ml vial SC SCH ×2 (08:00→12:47)
--- NOTE | 2018-05-27 08:21 | CP.PCM.CON ---
<Agueda Pyle - Last Filed: 05/27/18 13:38> History of Present Illness - History of Present Illness History of Present Illness: Consult for Dr. Mckinney Patient is a 67 year old female with a past medical history of HTN, DM, dementia and a Pelvic mass, who presented to the hospital with an intertrochanteric fracture. She is s/p ORIF of the left femur, POD#3. OBGYN was consulted for a pelvic mass found on a pelvic CT. The patient is a poor historian, does not remember her medical history (to include medical, surgical, OBGYN, previous pregnancies, etc), and has no complaints today. She denies chest pain, shortness of breath, nausea, vomiting, abdominal pain, and pelvic pain. Unable to obtain detailed past medical, surgery, OBGYN history due to patient's mental status. Review of Systems - Review of Systems Systems not reviewed;Unavailable: Altered Mental Status - Constitutional Constitutional: absent: Fever - Cardiovascular Cardiovascular: absent: Chest Pain, Dyspnea - Respiratory Respiratory: absent: Cough, Dyspnea - Gastrointestinal Gastrointestinal: absent: Abdominal Pain, Nausea, Vomiting - Neurological Neurological: Frequent Falls Past Patient History - Infectious Disease Hx of Infectious Diseases: None - Past Medical History & Family History Past Medical History?: Yes Past Family History: Reviewed and not pertinent - Past Social History Smoking Status: Unknown If Ever Smoked - CARDIAC Hx Cardiac Disorders: Yes Hx Hypercholesterolemia: Yes Hx Hypertension: Yes ( PER SON) - PULMONARY Hx Respiratory Disorders: No Hx Tuberculosis: No - NEUROLOGICAL Hx Neurological Disorder: Yes Hx Dementia: Yes Hx Seizures: Yes ( PER SON) - HEENT Hx HEENT Problems: No - RENAL Hx Chronic Kidney Disease: No - ENDOCRINE/METABOLIC Hx Diabetes Mellitus Type 2: Yes - HEMATOLOGICAL/ONCOLOGICAL Hx Blood Disorders: No Hx Human Immunodeficiency Virus (HIV): No - INTEGUMENTARY Hx Dermatological Problems: No - MUSCULOSKELETAL/RHEUMATOLOGICAL Hx Arthritis: Yes (BACK, KNEE AND ANKLE PAIN R>L) - GASTROINTESTINAL Hx Gastrointestinal Disorders: Yes Hx Gastroesophageal Reflux: Yes - GENITOURINARY/GYNECOLOGICAL Hx Genitourinary Disorders: No Hx Sexually Transmitted Disorders: No - PSYCHIATRIC Hx Psychophysiologic Disorder: Yes Hx Anxiety: Yes Hx Substance Use: No - SURGICAL HISTORY Hx Surgeries: Yes Hx Tubal Ligation: Yes - ANESTHESIA Hx Anesthesia: Yes Hx Anesthesia Reactions: No Hx Malignant Hyperthermia: No Meds Home Medications: Home Medication List Medication Instructions Recorded Confirmed Type RX: ALPRAZolam [Xanax] 1 mg PO Q8 PRN tab 05/27/18 Rx RX: Acetaminophen [Tylenol 325mg 650 mg PO Q6 PRN tab 05/27/18 Rx tab] RX: Docusate [Colace] 100 mg PO BID cap 05/27/18 Rx RX: Enoxaparin [Lovenox] 40 mg SC DAILY syr 05/27/18 Rx RX: Ferrous Sulfate [Feosol] 325 mg PO BID tab 05/27/18 Rx RX: Folic Acid 1 mg PO DAILY tab 05/27/18 Rx RX: Insulin Human Regular [Novolin 0 unit SC ACHS unit 05/27/18 Rx R] RX: Losartan [Cozaar] 100 mg PO DAILY tab 05/27/18 Rx RX: Memantine [Namenda] 10 mg PO BID tab 05/27/18 Rx RX: Metoprolol Succinate XL 50 mg PO DAILY tab 05/27/18 Rx [Toprol XL] RX: QUEtiapine [Seroquel] 25 mg PO DAILY tab 05/27/18 Rx RX: Valproic Acid Cap [Depakene 250 mg PO TIDCC sgl 05/27/18 Rx Cap] RX: hydrALAZINE [Apresoline] 50 mg PO TID tab 05/27/18 Rx RX: oxyCODONE/Acetaminophen 2 tab PO Q4H PRN #1 tab 05/27/18 Rx [Percocet 5/325 mg Tab] Allergies/Adverse Reactions: Allergies Allergy/AdvReac Type Severity Reaction Status Date / Time No Known Allergies Allergy Verified 04/03/18 00:58 - Medications Medications: Current Medications Acetaminophen (Tylenol 325mg Tab) 650 mg PO Q6 PRN PRN Reason: Pain, moderate (4-7) Acetaminophen (Tylenol 325mg Tab) 650 mg PO Q6 PRN PRN Reason: Fever >100.4 F Alprazolam (Xanax) 1 mg PO Q8 PRN PRN Reason: Anxiety Last Admin: 05/23/18 01:02 Dose: 1 mg Docusate Sodium (Colace) 100 mg PO BID [facility] Last Admin: 05/26/18 20:00 Dose: 100 mg Enoxaparin Sodium (Lovenox) 40 mg SC DAILY [facility] Last Admin: 05/26/18 10:18 Dose: 40 mg Ferrous Sulfate (Feosol) 325 mg PO BID [facility] Last Admin: 05/26/18 18:37 Dose: Not Given Folic Acid (Folic Acid) 1 mg PO DAILY [facility] Last Admin: 05/26/18 10:18 Dose: 1 mg Hydralazine HCl (Apresoline) 25 mg PO TID [facility] Last Admin: 05/26/18 20:00 Dose: 25 mg Sodium Chloride (Sodium Chloride 0.9%) 1,000 mls @ 80 mls/hr IV .[id number] [facility] Last Admin: 05/26/18 23:42 Dose: 80 mls/hr Insulin Human Regular (Novolin R) 0 unit SC ACHS [facility]; Protocol Last Admin: 05/26/18 21:59 Dose: Not Given Losartan Potassium (Cozaar) 100 mg PO DAILY [facility] Last Admin: 05/26/18 10:18 Dose: 100 mg Memantine (Namenda) 10 mg PO BID [facility] Last Admin: 05/26/18 20:00 Dose: 10 mg Metoprolol Succinate (Toprol Xl) 50 mg PO DAILY [facility] Last Admin: 05/26/18 10:18 Dose: 50 mg Morphine Sulfate (Morphine) 2 mg IVP Q4H PRN PRN Reason: Pain, severe (8-10) Last Admin: 05/25/18 20:33 Dose: 2 mg Ondansetron HCl (Zofran Inj) 4 mg IVP ONCE PRN PRN Reason: Nausea/Vomiting Oxycodone/Acetaminophen (Percocet 5/325 Mg Tab) 1 tab PO Q4 PRN PRN Reason: Pain, Mild (1-3) Stop: 05/27/18 17:40 Oxycodone/Acetaminophen (Percocet 5/325 Mg Tab) 2 tab PO Q4H PRN PRN Reason: Pain, moderate (4-7) Stop: 05/27/18 17:40 Last Admin: 05/26/18 23:51 Dose: 2 tab Quetiapine Fumarate (Seroquel) 25 mg PO DAILY [facility] Last Admin: 05/26/18 10:18 Dose: 25 mg Rosuvastatin Calcium (Crestor) 10 mg PO HS [facility] Last Admin: 05/26/18 21:58 Dose: 10 mg Valproate Sodium (Depakene Cap) 250 mg PO TIDCC [facility] Last Admin: 05/26/18 20:00 Dose: 250 mg Physical Exam - Constitutional Appears: No Acute Distress - Head Exam Head Exam: ATRAUMATIC - Eye Exam Eye Exam: EOMI, Normal appearance - ENT Exam ENT Exam: Mucous Membranes Dry - Respiratory Exam Respiratory Exam: Clear to Auscultation Bilateral, NORMAL BREATHING PATTERN. absent: Rhonchi, Wheezes, Respiratory Distress - Cardiovascular Exam Cardiovascular Exam: REGULAR RHYTHM, +S1, +S2 - GI/Abdominal Exam GI & Abdominal Exam: Normal Bowel Sounds, Soft. absent: Distended, Firm, Guarding, Tenderness - Exam Additional comments: No inguinal lymphadenopathy palpated, very mild tenderness with deep palpation of the pelvic region, no masses palpated, no guarding, no rigidity - Extremities Exam Extremities exam: Positive for: pedal pulses present Additional comments: s/p ORIF - Neurological Exam Neurological exam: Altered Additional comments: oriented to person, disoriented to place and time - Psychiatric Exam Psychiatric exam: Normal Mood - Skin Skin Exam: Dry, Normal Color, Warm Results - Vital Signs Recent Vital Signs: Last Vital Signs Temp 98.8 F 05/26/18 23:30 Pulse 82 05/26/18 23:30 Resp 20 05/26/18 23:30 BP 169/92 H 05/26/18 23:30 Pulse Ox 97 05/26/18 23:30 - Labs Result Diagrams: 05/26/18 07:15 05/26/18 07:15 Labs: Laboratory Results - last 24 hr 05/26/18 05/26/18 05/26/18 12:27 16:50 21:08 POC Glucose (mg/dL) 154 H 85 105 05/27/18 06:39 POC Glucose (mg/dL) 114 H Assessment & Plan - Assessment and Plan (Free Text) Plan: 67 year old female with a past medical history of DM, HTN, and Pelvic mass, who presented to the hospital with a left IT fracture, s/p ORIF, POD#3. OBGYN consult was placed for a pelvic mass found on CT and US. Plan: Pelvic Mass - Outpatient gynecological follow up is recommended for this patient. No intervention during this admission is needed at this time. - Of note, Patient was examined in 03/2018 for the pelvic mass by the OBGYN grounds person who also recommended outpatient follow up. No intervention was performed during that admission. - CEA (04/07/18): 1.7, within normal range - CA125 (04/07/18): 6.6, within normal range - Continue management per primary and orthopedic teams. Imaging: * Pelvic CT 05/20/18: Stable cystic mass right hemipelvis 6.7 x 9.5 cm stable smaller cystic mass left hemipelvis 2.4 x 3.1 cm. * Pelvic US (transabdominal) 05/26/18: stable 8.0 x 9.9 x 6.0 cm cystic lesion in the right ovary. The differential considerations include simple cyst, cystadenoma and cystadenocarcinoma. Stable 2.7 cm simple cyst in the left ovary. From previous admissions: * Pelvic CT 07/09/17: B/L adnexal cysts measuring approx 6x3cm on R ovary, approx 3cm in diameter on the left ovary * Pelvic CT 04/03/18: cystic lesion at right pelvis- 8.4cm in transverse diameter, 7.9cm in AP diameter; cystic structure left of bladder measuring 2.7cm in transverse diameter and 3cm in AP diameter; both cystic lesions are suspicious for adnexal cystic neoplasm * Pelvic US 04/05/18: Bilateral adnexal cysts are once again identified and have been noted on prior examinations. There appears to be some mild increase in size of the right adnexal cyst. Bilateral ovarian neoplasms cannot be excl uded on this examination. This would include cystadenoma.. MRI may prove helpful for further evaluation. Further clinical follow-up and laparoscopic evaluation would be suggested as clinically indicated. * RIGHT OVARY: Measures 9.9 x 7.4 x 10.4 cm. There is evidence of a large right ovarian cyst occupying a large portion of the right ovary. This measures approximately 9 x 6 x 9 centimeters. Peripheral ovarian tissue is limited. No internal echoes or wall thickening is clearly seen in the c yst. Cyst is noted just superior to the right side of the bladder. * LEFT OVARY: Measures 3.7 x 2.5 x 3 cm. There is also a cyst occupying a large portion of the left ovary measuring 2.8 x 2.3 x 2.6 centimeters. Normal flow. No internal echoes are clearly seen. No mural nodules are noted. Thank you for this consult. Plan discuss with Dr. Mckinney. Agueda Leigh, PGY2 <Laura Mckinney - Last Filed: 05/27/18 19:37> Results - Vital Signs Recent Vital Signs: Last Vital Signs Temp 97.9 F 05/27/18 15:30 Pulse 96 H 05/27/18 15:30 Resp 20 05/27/18 15:30 BP 165/83 H 05/27/18 15:30 Pulse Ox 97 05/27/18 15:30 - Labs Result Diagrams: 05/26/18 07:15 05/26/18 07:15 Labs: Laboratory Results - last 24 hr 05/26/18 05/26/18 05/26/18 12:27 16:50 21:08 POC Glucose (mg/dL) 154 H 85 105 05/27/18 05/27/18 06:39 12:01 POC Glucose (mg/dL) 114 H 154 H Assessment & Plan - Assessment and Plan (Free Text) Assessment: Patient seen and examined with Dr. Pyle and agreed with her findings and POC A&P Menopausal female with persistent Ovarian cyst that will need outpatient follow up with her PUMPER HELPER doctor Unable to obtain any history since patient not mentally capable of answer questions Appreciate consultation and will sign-off at this time - Date & Time Date: 05/27/18 Time: 16:20
[2018-05-27 08:37] VITALS: PULSE 96
--- NOTE | 2018-05-27 09:51 | PN ---
DATE: 05/27/2018 SUBJECTIVE: The patient is status post hip surgery has been done. PHYSICAL EXAMINATION: VITAL SIGNS: Blood pressure 167/81, pulse 97, respiratory rate 20, and temperature 97.2. LUNGS: Clear. CARDIOVASCULAR SYSTEM: S1, S2, regular. ABDOMEN: Soft. EXTREMITIES: Left hip is status post surgery. CENTRAL NERVOUS SYSTEM: The patient is delusional and poor memory. ASSESSMENT: 1. Left hip fracture, status post surgery. 2. Hypertension. 3. Diabetes. 4. Anemia. PLAN: Continue current medication, physical therapy, and rehab. Abram Russell MD
--- NOTE | 2018-05-27 09:52 | PN ---
DATE: 05/27/2018 SUBJECTIVE: The patient is on physiotherapy. She is feeling better. She is more alert. PHYSICAL EXAMINATION: VITAL SIGNS: Blood pressure 169/92, pulse 82, respiratory rate 20, and temperature 98.8. LUNGS: Clear. ABDOMEN: Soft. ASSESSMENT: Left hip is post surgery. PLAN: Continue physiotherapy. Monitor the patient. Abram Russell MD
[2018-05-27] MEDS: Metoprolol Succinate 50 mg XL Tab PO SCH (09:59)
[2018-05-27] MEDS: Enoxaparin 40 mg Syringe SC SCH (10:00)
--- NOTE | 2018-05-27 13:45 | CP.PCM.PN ---
Subjective - Date & Time of Evaluation Date of Evaluation: 05/27/18 Time of Evaluation: 11:00 - Subjective Subjective: patient seen today, awake, alert, comfortable vss and labs reviewed- stable and a febrile hgb - stable no overnight event reported by RN s/p L hip IT fx ORIF with IM nail , POD#3 Objective - Vital Signs/Intake and Output Vital Signs (last 24 hours): Temp Pulse Resp BP Pulse Ox 97.3 F L 96 H 20 179/84 H 94 L 05/27/18 08:36 05/27/18 08:36 05/27/18 08:36 05/27/18 08:36 05/27/18 08:36 - Medications Medications: Current Medications Acetaminophen (Tylenol 325mg Tab) 650 mg PO Q6 PRN PRN Reason: Pain, moderate (4-7) Acetaminophen (Tylenol 325mg Tab) 650 mg PO Q6 PRN PRN Reason: Fever >100.4 F Alprazolam (Xanax) 1 mg PO Q8 PRN PRN Reason: Anxiety Last Admin: 05/23/18 01:02 Dose: 1 mg Docusate Sodium (Colace) 100 mg PO BID [facility] Last Admin: 05/27/18 10:01 Dose: 100 mg Enoxaparin Sodium (Lovenox) 40 mg SC DAILY [facility] Last Admin: 05/27/18 10:00 Dose: 40 mg Ferrous Sulfate (Feosol) 325 mg PO BID [facility] Last Admin: 05/27/18 09:59 Dose: 325 mg Folic Acid (Folic Acid) 1 mg PO DAILY [facility] Last Admin: 05/27/18 09:59 Dose: 1 mg Hydralazine HCl (Apresoline) 50 mg PO TID [facility] Last Admin: 05/27/18 13:03 Dose: 50 mg Sodium Chloride (Sodium Chloride 0.9%) 1,000 mls @ 80 mls/hr IV .[id number] [facility] Last Admin: 05/26/18 23:42 Dose: 80 mls/hr Insulin Human Regular (Novolin R) 0 unit SC ACHS [facility]; Protocol Last Admin: 05/27/18 12:47 Dose: 1 u Losartan Potassium (Cozaar) 100 mg PO DAILY [facility] Last Admin: 05/27/18 09:59 Dose: 100 mg Memantine (Namenda) 10 mg PO BID [facility] Last Admin: 05/27/18 10:00 Dose: 10 mg Metoprolol Succinate (Toprol Xl) 50 mg PO DAILY [facility] Last Admin: 05/27/18 09:59 Dose: 50 mg Morphine Sulfate (Morphine) 2 mg IVP Q4H PRN PRN Reason: Pain, severe (8-10) Last Admin: 05/25/18 20:33 Dose: 2 mg Ondansetron HCl (Zofran Inj) 4 mg IVP ONCE PRN PRN Reason: Nausea/Vomiting Oxycodone/Acetaminophen (Percocet 5/325 Mg Tab) 1 tab PO Q4 PRN PRN Reason: Pain, Mild (1-3) Stop: 05/27/18 17:40 Oxycodone/Acetaminophen (Percocet 5/325 Mg Tab) 2 tab PO Q4H PRN PRN Reason: Pain, moderate (4-7) Stop: 05/27/18 17:40 Last Admin: 05/26/18 23:51 Dose: 2 tab Quetiapine Fumarate (Seroquel) 25 mg PO DAILY [facility] Last Admin: 05/27/18 10:00 Dose: 25 mg Rosuvastatin Calcium (Crestor) 10 mg PO HS [facility] Last Admin: 05/26/18 21:58 Dose: 10 mg Valproate Sodium (Depakene Cap) 250 mg PO TIDCC [facility] Last Admin: 05/27/18 13:03 Dose: 250 mg - Labs Labs: 05/26/18 07:15 05/26/18 07:15 PT 11.5 SECONDS (9.7-12.2) 05/20/18 16:27 INR 1.1 05/20/18 16:27 APTT 28 SECONDS (21-34) 05/20/18 16:27 Assessment and Plan - Assessment and Plan (Free Text) Assessment: A/P 67yo female with history of HTN, dementia, seizures, sent to [facility] ER from [place] for evaluation s/p fall and c/o left hip pain and admitted with left Hip fracture s/p L hip IT fx ORIF with IM nail , POD#3 hgb - stable seen by ortho cleared fro discharge to [place] and continue PT/OT and f/u with [place] office incidental finding noted on CT and OBGYN was consulted for a pelvic mass found on a pelvic CT and recommends Outpatient gynecological follow up is recommended for this patient. No intervention during this admission is needed at this time. D/w Dr. Russell, cleared fro discahrge to [facility] today and Dr. Russell will follow the patient at [facility] The following instruction sen to to [facility] for f/u Please call Dr. Russell upon patient arrival to [facility] facility Please f/u with Dr. Young office (f/u visit) LEFT hip surgery - call and make appointment and arrange transportation PATIENT NEEDS TO F/U WITH A DEMAND PLANNER (THIS IS THE SECOND REQUEST) - for abnormal pevic CT result - PLEASE MAKE APPOINTMENT AND ARRANGE TRANSPORTATION - DR. RUSSELL CAN PROVIDE YOU THE RESULT OF CT /US REPORT WHEN ARRANGE APPOINTMENT WITH DEMAND PLANNER Please continue medication as per med. rec Please do cbc, bmp q weekly starting Thursday
[2018-05-27 16:53] VITALS: BP 165/83; TEMP 97.9; O2SAT 97
--- NOTE | 2018-05-27 21:43 | CP.PCM.DIS ---
Provider - Provider Date of Admission: 05/20/18 18:06 Attending physician: Abram Russell MD Consults: 05/20/18 18:19 Orthopedic Consult Stat Comment: Consulting Provider: Jamar Sosa III Consulting Physician: Jamar Sosa III Reason for Consult: hip fracture 05/21/18 12:42 Cardiology Consult Routine Comment: Consulting Provider: Je Landa Consulting Physician: Je Landa Reason for Consult: pre op 05/24/18 17:39 Case Management Referral Routine Comment: Physician Instructions: Reason For Exam: Reason for Referral: Discharge Planning 05/26/18 19:43 Physician Consult Routine Comment: Consulting Provider: Seymour Zamarripa Consulting Physician: Seymour Zamarripa Reason for Consult: Cyst in Ovary Time Spent in preparation of Discharge (in minutes): 30 Hospital Course - Lab Results Lab Results: Most Recent Lab Values WBC 6.7 K/uL (4.8-10.8) 05/26/18 07:15 RBC 3.12 Mil/uL (3.80-5.20) L 05/26/18 07:15 Hgb 9.9 g/dL (11.0-16.0) L 05/26/18 07:15 Hct 29.4 % (34.0-47.0) L 05/26/18 07:15 MCV 94.5 fL (81.0-99.0) 05/26/18 07:15 MCH 31.7 pg (27.0-31.0) H 05/26/18 07:15 MCHC 33.5 g/dL (33.0-37.0) 05/26/18 07:15 RDW 14.1 % (11.5-14.5) 05/26/18 07:15 Plt Count 170 K/uL (130-400) 05/26/18 07:15 MPV 8.4 fL (7.2-11.7) 05/26/18 07:15 Neut % (Auto) 75.6 % (50.0-75.0) H 05/20/18 16:27 Lymph % (Auto) 16.0 % (20.0-40.0) L 05/20/18 16:27 [place] % (Auto) 7.9 % (0.0-10.0) 05/20/18 16:27 Eos % (Auto) 0.4 % (0.0-4.0) 05/20/18 16:27 Baso % (Auto) 0.1 % (0.0-2.0) 05/20/18 16:27 Neut # (Auto) 5.2 K/uL (1.8-7.0) 05/20/18 16:27 Lymph # (Auto) 1.1 K/uL (1.0-4.3) 05/20/18 16:27 [place] # (Auto) 0.5 K/uL (0.0-0.8) 05/20/18 16:27 Eos # (Auto) 0.0 K/uL (0.0-0.7) 05/20/18 16:27 Baso # (Auto) 0.0 K/uL (0.0-0.2) 05/20/18 16:27 Differential Comment 05/21/18 13:56 PT 11.5 SECONDS (9.7-12.2) 05/20/18 16:27 INR 1.1 05/20/18 16:27 APTT 28 SECONDS (21-34) 05/20/18 16:27 Sodium 138 mmol/L (132-148) 05/26/18 07:15 Potassium 3.8 mmol/L (3.6-5.2) 05/26/18 07:15 Chloride 107 mmol/L (98-107) 05/26/18 07:15 Carbon Dioxide 24 mmol/L (22-30) 05/26/18 07:15 Anion Gap 10 (10-20) 05/26/18 07:15 BUN 23 mg/dL (7-17) H 05/26/18 07:15 Creatinine 0.7 mg/dL (0.7-1.2) 05/26/18 07:15 Est GFR ( Amer) > 60 05/26/18 07:15 Est GFR (Non-Af Amer) > 60 05/26/18 07:15 POC Glucose (mg/dL) 154 mg/dL (65-110) H 05/27/18 12:01 Random Glucose 148 mg/dL (65-105) H D 05/26/18 07:15 Calcium 8.9 mg/dl (8.6-10.4) 05/26/18 07:15 Total Bilirubin 0.3 mg/dL (0.2-1.3) 05/20/18 16:27 AST 38 U/L (14-36) H D 05/20/18 16:27 ALT 27 U/L (9-52) 05/20/18 16:27 Alkaline Phosphatase 85 U/L (38-126) 05/20/18 16:27 Total Creatine Kinase 92 U/L (30-135) 05/24/18 20:18 CK-MB (Mass) 1.40 ng/mL (0.0-3.38) 05/24/18 20:18 Troponin I < 0.0120 ng/mL (0.00-0.120) 05/24/18 20:18 Total Protein 7.4 g/dL (6.3-8.3) 05/20/18 16:27 Albumin 3.9 g/dL (3.5-5.0) 05/20/18 16:27 Globulin 3.5 gm/dL (2.2-3.9) 05/20/18 16:27 Albumin/Globulin Ratio 1.1 (1.0-2.1) 05/20/18 16:27 25-OH Vitamin D Total 45.6 NG/ML (30.0-100.0) 05/21/18 13:56 Urine Color Yellow (YELLOW) 05/20/18 23:00 Urine Clarity Clear (Clear) 05/20/18 23:00 Urine pH 6.0 (5.0-8.0) 05/20/18 23:00 Ur Specific [place] 1.018 (1.003-1.030) 05/20/18 23:00 Urine Protein Negative mg/dL (NEGATIVE) 05/20/18 23:00 Urine Glucose (UA) Normal mg/dL (Normal) 05/20/18 23:00 Urine Ketones Trace mg/dL (NEGATIVE) 05/20/18 23:00 Urine Blood Negative (NEGATIVE) 05/20/18 23:00 Urine Nitrate Negative (NEGATIVE) 05/20/18 23:00 Urine Bilirubin Negative (NEGATIVE) 05/20/18 23:00 Urine Urobilinogen Normal mg/dL (0.2-1.0) 05/20/18 23:00 Ur Leukocyte Esterase Neg Raymond/uL (Negative) 05/20/18 23:00 Urine WBC (Auto) 1 /hpf (0-5) 05/20/18 23:00 Urine RBC (Auto) 3 /hpf (0-3) 05/20/18 23:00 Ur Squamous Epith Cells 2 /hpf (0-5) 05/20/18 23:00 Urine Bacteria Rare (<OCC) 05/20/18 23:00 Blood Type O POSITIVE 05/24/18 07:34 Antibody Screen Negative 05/24/18 07:34 Discharge Exam - Head Exam Head Exam: ATRAUMATIC Discharge Plan - Follow Up Plan Condition: STABLE Disposition: HOME/ ROUTINE Instructions: Hip Fracture (DC), Open Reduction and Internal Fixation Surgery (DC), Managing Pain After Surgery Additional Instructions: Please call Dr. Russell upon patient arrival to [facility] facility Please f/u with Dr. Young office (f/u visit) R hip surgery - call and make appointment and arrange transportation PATIENT NEEDS TO F/U WITH A CUTTER GRINDER OPERATOR (THIS IS THE SECOND REQUEST) - for abnormal pevic CT result - PLEASE MAKE APPOINTMENT AND ARRANGE TRANSPORTATION - DR. RUSSELL CAN PROVIDE YOU [facility] RESULT OF CT /US REPORT WHEN ARRANGE APPOINTMEN T WITH CUTTER GRINDER OPERATOR Please continue medication as per med. rec Please do cbc, bmp q weekly starting Thursday Referrals: Abram Russell MD [Staff Provider] -
--- NOTE | 2018-05-28 05:49 | DS ---
DISCHARGE DIAGNOSES: 1. Left hip fracture. 2. Alzheimer's with psychosis. 3. Hypertension. 4. Type 2 diabetes. HISTORY OF PRESENT ILLNESS: This is a 67-year-old female with history of type 2 diabetes, hypertension, hyperlipidemia, prior recurrent fall with fracture of right hip and fracture of shoulder who came in because of fracture of left hip. She was admitted, and she underwent open reduction and internal fixation, and the patient is for discharge. CONDITION UPON DISCHARGE: Stable. During course of hospitalization, she was seen by Orthopedics. PHYSICAL EXAMINATION: VITAL SIGNS: Blood pressure 165/83, pulse 96, respiratory rate 20, temperature 97.9. LUNGS: Clear. CARDIOVASCULAR SYSTEM: S1, S2. Regular. ABDOMEN: Soft. CENTRAL NERVOUS SYSTEM: Demented. PLAN: Discharge the patient. Follow up with me at half-way. Abram Russell MD
== END 2018-05-27 17:34 | disposition home or self-care (01) | DRG 481 ==
LOC: C.ER 15:08 → C.9E 18:06 → C.6T 19:14
PROVIDERS: ADMIT Internal Medicine; ATTEND Internal Medicine
PROC: 0QS704Z Reposition Left Upper Femur with Internal Fixation Device, Open Approach (ICD-10-PCS; principal; 2018-05-24 14:00)
DX: S72.142A Displaced intertrochanteric fracture of left femur, initial encounter for closed fracture (principal); M48.56XA Collapsed vertebra, not elsewhere classified, lumbar region, initial encounter for fracture; N83.201 Unspecified ovarian cyst, right side; N83.202 Unspecified ovarian cyst, left side; E11.9 Type 2 diabetes mellitus without complications; I10 Essential (primary) hypertension; E78.5 Hyperlipidemia, unspecified; K21.9 Gastro-esophageal reflux disease without esophagitis; D64.9 Anemia, unspecified; G30.9 Alzheimer's disease, unspecified; F02.80 Dementia in other diseases classified elsewhere, unspecified severity, without behavioral disturbance, psychotic disturbance, mood disturbance, and anxiety; M25.78 Osteophyte, vertebrae; M48.061 Spinal stenosis, lumbar region without neurogenic claudication; R19.09 Other intra-abdominal and pelvic swelling, mass and lump; E78.00 Pure hypercholesterolemia, unspecified; F31.9 Bipolar disorder, unspecified; W19.XXXA Unspecified fall, initial encounter; Y92.129 Unspecified place in nursing home as the place of occurrence of the external cause; Z87.81 Personal history of (healed) traumatic fracture; Z91.81 History of falling; Z98.51 Tubal ligation status; Z79.899 Other long term (current) drug therapy; Z79.4 Long term (current) use of insulin